=== PATIENT | female | born 1950 | race Caucasian/White ===

== ENCOUNTER 2017-11-07 10:13 | Outpatient (CLI) | payer MEDICARE, OTHER | END 2017-11-07 10:14 | disposition home or self-care (01) | LOC: BICMAMMO 10:13 | PROVIDERS: ATTEND Obstetrics & Gynecology | DX: Z12.31 Encounter for screening mammogram for malignant neoplasm of breast (principal) | CPT/HCPCS: 77063; 77067 ==

== ENCOUNTER 2018-04-08 13:52 | Outpatient (CLI) | payer MEDICARE, OTHER | END 2018-04-08 13:53 | disposition home or self-care (01) | LOC: BICMAMMO 13:52 | PROVIDERS: ATTEND Family Medicine | DX: Z13.820 Encounter for screening for osteoporosis (principal); Z78.0 Asymptomatic menopausal state | CPT/HCPCS: 77080 ==

== ENCOUNTER 2018-08-12 12:11 | Outpatient (CLI) | payer MEDICARE, OTHER ==
--- NOTE | 2018-08-12 14:00 | RAD ---
ABDOMEN TWO VIEWS: TECHNIQUE: Supine and upright views of the abdomen obtained. FINDINGS: On the upright view, there is opacity in the right lung base obscuring the right hemidiaphragm, meghann rning for a right basilar infiltrate, as described on chest film. The bowel gas pattern is unremarka ble. Scattered stool and gas in the colon. No significant small bowel gas. Osseous structures are unremarkable with moderate degenerative change at the left hip and a prosthesis at the right hip. IMPRESSION: 1. Bowel gas pattern unremarkable. 2. Evidence of right basilar infiltrate or atelectasis. POS: [facility]
--- NOTE | 2018-08-12 14:00 | RAD ---
2 VIEW CHEST: Date: 08/12/18 INDICATION: Bronchitis, cough. COMPARISON: 12/17/16. FINDINGS: There is opacity in the right lung base, partially obscuring the hemidiaphragm, better appreciated on the upright view of abdomen. Findings are concerning for right basilar infiltrate. Lungs otherwise appear clear. Heart is upper normal size. Vasculature normal. Osseous structures unre markable. IMPRESSION: Evidence of mild right basilar atelectasis and/or infiltrate. POS: [facility]
== END 2018-08-12 12:12 | disposition home or self-care (01) ==
LOC: SCSRAD 12:11
PROVIDERS: ATTEND Family Medicine
DX: R06.02 Shortness of breath (principal); R10.32 Left lower quadrant pain
CPT/HCPCS: 71046; 74019

== ENCOUNTER 2018-08-14 11:54 | Inpatient (IN) | payer MEDICARE, OTHER ==
[2018-08-14 12:22] LABS: #Lymphocytes 2.5 thou/uL (1.20-3.40); #Monocytes 1.3 thou/uL (0.11-0.59); #Neutrophils 10.3 thou/uL (1.40-6.50); %Basophils 0.3 % (0.0-1.0); %Eosinophils 0.3 % (0.0-10.0); %Lymphocytes 17.7 % (21.0-51.0); %Monocytes 9.3 % (0.0-10.0); %Neutrophils 72.4 % (42.0-75.0); Hemoglobin 14.9 g/dL (12.0-16.0); Mean Corpuscular HGB CONC 33.5 g/dL (32.0-36.0); Mean Corpuscular Hemoglobin 33.3 pg (27.0-31.0); Mean Corpuscular Volume 99.6 fL (78.0-98.0); Platelet Count 295 thou/uL (130-400); RBC Distribution Width 11.9 % (11.5-14.5); Red Blood Cell (RBC) Count 4.46 mill/uL (4.20-5.40); White Blood Cell (WBC) Count 14.2 thou/uL (4.8-10.8)
[2018-08-14 12:32] LABS: INR-International Normal Ratio 1.6; PTT 26.1 SEC (22.9-36.1); Prothrombin Time 18.9 SEC (12.0-14.7)
[2018-08-14 12:38] LABS: Bilirubin Negative (Negative); Blood, Urine Negative (Negative); Clarity CLEAR (Clear); Glucose, Urine (Dipstick) Negative (Negative); Leukocyte Negative (Negative); Nitrite Negative (Negative); Protein, Urine (Dipstick) 30 mg/dL (Neg-Trace); Specific Gravity, Urine 1.025 (1.002-1.036); Urobilinogen 0.2 mg/dL (0.2-1.0)
[2018-08-14 12:41] LABS: Bacteria/HPF None Seen HPF (None Seen); Hyaline Casts/LPF 4-6 HYALINE CAST LPF (0-3 Hyaline); Pathc Cast-AUWi Flag 0.87 (0-2.49); Squamous Epithelial 0-3 HPF (0-3); WBC/HPF 0-3 HPF (0-3)
[2018-08-14 12:44] LABS: ALT (SGPT) 252 U/L (8-55); AST (SGOT) 145 U/L (5-34); Alkaline Phosphatase 112 U/L (40-150); Anion Gap 18 mmol/L (10-20); BUN (Urea Nitrogen) 41 mg/dL (9.8-20.1); Bilirubin, Total 0.5 mg/dL (0.2-1.2); Calc. Creatinine Clearance 0 mL/min (70-130); Calcium 9.2 mg/dL (7.8-10.44); Carbon Dioxide 22 mmol/L (23-31); Chloride 103 mmol/L (98-107); Estimated GFR-MDRD 39; Globulin 2.7 g/dL (2.4-3.5); Glucose 132 mg/dL (80-115); Potassium 4.1 mmol/L (3.5-5.1); Protein, Total 6.7 g/dL (6.0-8.3); Sodium 139 mmol/L (136-145)
--- NOTE | 2018-08-14 13:24 | RAD ---
RADIOGRAPH CHEST 1 VIEW: Date: 08/14/2018 Time: 11:53 a.m. HISTORY: A 67-year-old female with a diagnosis of pneumonia. COMPARISON: 08/12/2018 FINDINGS: Again noted is the cardiomegaly without congestive heart failure. There is a greater degree of incre ased attenuation in the bilateral lower lung zones on the current study, compared to previous, and th ey could represent infiltrates, left greater than right. The upper lobes are clear. No mediastinal widening. No pneumothorax. IMPRESSION: 1. Suspicious for bilateral lower lobe infiltrates, left greater than right. 2. A lateral view would be useful. JN [] POS: [facility]
[2018-08-14] MEDS ORDERED: Diltiazem 125 MG/25 ML ONE (14:07)
[2018-08-14] MEDS ORDERED: Ondansetron PF 4 MG/2 ML Vial ONE (14:23)
[2018-08-14] MEDS ORDERED: Bisacodyl 5 MG TAB PO PRN (15:09)
[2018-08-14] MEDS ORDERED: Loperamide HCl 2 MG CAP PO PRN (15:09)
[2018-08-14] MEDS ORDERED: VANCOMYCIN IVPB PRN ×2 (15:09→16:55)
[2018-08-14] MEDS ORDERED: hydrALAZINE 20 MG/ML VIAL SLOW IVP PRN (15:09)
[2018-08-14] MEDS ORDERED: Cepastat Lozenges 1 LOZ PO PRN (15:09)
[2018-08-14] MEDS ORDERED: Diabetic Tussin 200 MG/10 ML UDCUP PO PRN (15:09)
[2018-08-14] MEDS ORDERED: Bisacodyl 10 MG SUPP PR PRN (15:09)
[2018-08-14] MEDS ORDERED: Artificial Tears 18 DROP/0.9 ML EA EYE PRN (15:09)
[2018-08-14] MEDS ORDERED: Senokot S 8.6-50 MG TAB PO PRN (15:09)
[2018-08-14] MEDS ORDERED: Loratadine 10 MG TAB PO PRN (15:09)
[2018-08-14] MEDS ORDERED: Sodium Chloride 0.65% Nasal 44 ML BOT EA NARE PRN (15:09)
[2018-08-14] MEDS ORDERED: Calcium Carbonate 500 MG ChewTAB PO PRN (15:09)
[2018-08-14] MEDS ORDERED: Eucerin (Mineral Oil/Petrolatum,White) 30 gm Jar TOP PRN (15:09)
[2018-08-14] MEDS ORDERED: Digoxin 0.5 MG/2 ML AMP SLOW IVP SCH (15:15)
--- NOTE | 2018-08-14 16:24 | HP ---
PRIMARY CARE PHYSICIAN: Dr. Ricardo Hannah. REASON FOR ADMISSION: Atrial fibrillation with rapid ventricular response, pneumonia, failure of outpatient therapy. HISTORY OF PRESENT ILLNESS: A 67-year-old female, who has almost 1-week history of increasing cough. The patient reports that all symptoms started 1 week ago with upper respiratory symptoms with runny nose and sore throat. Her symptoms progressed to cough, initially dry and subsequently productive of sputum associated with shortness of breath. She did not have any hemoptysis. She reports that she was exposed with people, who had upper respiratory infection. The patient is up-to-date in her flu and pneumonia vaccination. The patient saw her primary care physician, who prescribed Z-Sean as well as couple of times Rocephin intramuscularly given and also prescribed steroid. The patient reports that she finished her antibiotic therapy, but she was not feeling any better and that is why she made followup appointment with primary care physician. The patient was evaluated by primary care physician and the patient was not improving and that is why she was instructed to go to emergency room for evaluation. The patient was evaluated in the emergency room today and today her blood tests showing leukocytosis with left shift as well as acute kidney injury, lactic acidosis, and abnormal LFT. The patient's chest x-ray showed bilateral lower lobe pneumonia, left greater than right. The patient received vancomycin and levofloxacin in the emergency room. The patient received IV fluid because she was initially hypotensive. She was also started on Cardizem drip. When I saw this patient at that time, the patient was still in atrial fibrillation with RVR. We decided to admit this patient in the hospital for further evaluation and treatment. REVIEW OF SYSTEMS: CONSTITUTIONAL: Negative for weight loss or gain, ability to conduct usual activities. SKIN: Negative for rash, itching. EYES: Negative for double vision, pain. ENT/MOUTH: Negative for nose bleeding, neck stiffness, pain, tenderness. CARDIOVASCULAR: Negative for palpitations, dyspnea on exertion, orthopnea. RESPIRATORY: Negative for shortness of breath, wheezing, cough, hemoptysis, fever or night sweats. GASTROINTESTINAL: Negative for poor appetite, abdominal pain, heartburn, nausea, vomiting, constipation, or diarrhea. GENITOURINARY: Negative for urgency, frequency, dysuria, nocturia. MUSCULOSKELETAL: Negative for pain, swelling. NEUROLOGIC/PSYCHIATRIC: Negative for anxiety, depression. ALLERGY/IMMUNOLOGIC: Negative for skin rash, bleeding tendency. Please see my HPI for pertinent positives and negatives. All other review of systems reviewed and negative except as mentioned in HPI. PAST MEDICAL HISTORY: Paroxysmal atrial fibrillation, chronic anticoagulation with Xarelto, hypertension, and gastroesophageal reflux disease. PAST SURGICAL HISTORY: Right hip replacement, bilateral cataract surgery, bladder surgery x2, hysterectomy. PAST PSYCHIATRIC HISTORY: Reviewed and negative. SOCIAL HISTORY: The patient is , lives at home with her . No history of tobacco, alcohol, or illicit drug abuse. FAMILY HISTORY: No family history of coronary artery disease, stroke, or cancer, but several family members were diagnosed with atrial fibrillation. ALLERGIES: PENICILLIN. CURRENT HOME MEDICATIONS: 1. Estradiol 0.5 mg daily. 2. Valsartan 80 mg daily. 3. Protonix 40 mg daily. 4. Atenolol 12.5 mg twice daily. 5. Xarelto 20 mg daily. 6. Benicar 20 mg p.o. daily. 7. Tessalon 200 mg three times daily. 8. Celecoxib 200 mg twice daily. 9. Prednisone 20 mg p.o. b.i.d. EMERGENCY ROOM COURSE: The patient has received IV fluid 2 L, Levaquin 750 mg, Cardizem 10 mg bolus and 5 mg/hour drip, vancomycin 1 g. PHYSICAL EXAMINATION: VITAL SIGNS: On arrival, blood pressure a 106/81, pulse 155 and irregular, respiratory rate 24, temperature 97.9, and saturation 95% on room air. Weight 77.1 kg. GENERAL: The patient is currently alert and awake. No obvious acute distress. HEENT: Head; normocephalic and atraumatic. Eyes; pupils round and reactive to light. Extraocular muscle intact. ENT, oropharynx within normal limits. Moist mucous membranes. No pharyngeal erythema. No exudate. NECK: Supple. No JVD. No thyromegaly. No carotid bruit. No jugular venous distention. LUNGS: Bibasilar rales noted more on the left side. No accessory muscles of respiration in use. CARDIAC: S1 and S2, irregular. No murmur elicited. No gallop. No rub. ABDOMEN: Soft. Bowel sounds are present. Nontender. Nondistended. No organomegaly. No mass. No suprapubic tenderness. BACK: Unremarkable. No CVA tenderness. EXTREMITIES: Upper extremities, passive movement of all joints are normal. Lower extremities, no edema. Good distal pulsation. SKIN: No skin rash. HEMATOLOGIC: No lymphadenopathy. PSYCHIATRIC: Normal affect. SIGNIFICANT LABORATORY DATA AND IMAGING STUDIES: Chest x-ray showing bilateral pneumonia, left greater than right. CBC; WBC 14.2, hemoglobin 14.9, platelet 295. INR 1.6. Sodium 139, potassium 4.1, chloride 103, carbon dioxide 22, anion gap 18, BUN 41, creatinine 1.35, glucose 132, calcium 9.2. Lactic acid 3.4. LFT; AST 145, ALT 252, alkaline phosphatase 112, albumin 4.0. Troponin less than 0.010. Urinalysis normal. ASSESSMENT AND PLAN: 1. Sepsis with acute organ dysfunction, likely due to underlying pneumonia with failure of outpatient therapy. This patient has lactic acidosis, transaminitis, and acute kidney injury. The patient will be kept on broad-spectrum antibiotic therapy as well as IV fluid. We will follow up on culture result and change antibiotic therapy accordingly. 2. Community-acquired pneumonia, failure of outpatient therapy. This patient has failed outpatient therapy with azithromycin and she was given Rocephin. At this point, we will continue with vancomycin as per pharmacy adjusted dose and Levaquin 500 mg IV daily. I will check respiratory virus pathogen to rule out any viral etiology. We will continue with Mucinex 600 mg twice daily and DuoNeb therapy on p.r.n. basis. 3. Atrial fibrillation with rapid ventricular response. We will continue with Cardizem drip. If blood pressure remains low, then we will continue with digoxin 0.25 mg IV one time dose. We will also continue atenolol 12.5 mg p.o. b.i.d. We will check echocardiography. Cardiology will be consulted and we will continue her chronic anticoagulation with Xarelto. 4. Lactic acidosis, likely due to sepsis. We will repeat lactic acid level tomorrow. 5. Acute kidney injury. The patient will be given IV fluid, likely due to underlying sepsis. We will avoid nephrotoxins agent. 6. Abnormal LFT with transaminitis, likely due to sepsis and relatively low blood pressure. We will continue with IV fluid and will repeat LFT tomorrow. 7. History of hypertension, but currently having relatively low blood pressure and that is why we will hold on ARELIS inhibitor. 8. Deep venous thrombosis prophylaxis. The patient is already on Xarelto therapy. GI prophylaxis, Protonix 40 mg p.o. daily. 9. Gastroesophageal reflux disease. Continue Protonix 40 mg p.o. daily. CODE STATUS: The patient is full code. The patient's is surrogate decision maker. DISPOSITION PLAN: Based on clinical course, we are expecting the patient's stay in hospital more than 2 midnights. Plan of care discussed with the patient and her at bedside in the emergency room. Job ID: [id number]
[2018-08-14] MEDS ORDERED: Digoxin 0.5 MG/2 ML AMP ONE (16:34)
[2018-08-14 17:49] LABS: Lactic Acid 1.9 mmol/L (0.5-2.2)
[2018-08-14 20:22] VITALS: BMI 27.1
[2018-08-14] MEDS: Sodium Chloride 0.9% 1,000 ML IV SCH (21:08)
[2018-08-14] MEDS: Atenolol 25 MG TAB PO SCH (21:12)
[2018-08-14] MEDS: guaiFENesin ER 600 MG TAB PO SCH (21:14)
[2018-08-14] MEDS: Zolpidem Tartrate 5 MG TAB PO PRN (21:14)
[2018-08-14] MEDS: Diltiazem 125 MG in Sodium Chloride 0.9% 100 ML IVPB SCH (22:20)
[2018-08-15 05:28] LABS: #Basophils 0.1 thou/uL (0.0-0.2); #Eosinphils 0.1 thou/uL (0.0-0.7); #Lymphocytes 2.9 thou/uL (1.20-3.40); #Neutrophils 6.3 thou/uL (1.40-6.50); %Basophils 0.6 % (0.0-1.0); %Eosinophils 0.9 % (0.0-10.0); %Lymphocytes 28.2 % (21.0-51.0); %Monocytes 9.4 % (0.0-10.0); %Neutrophils 60.8 % (42.0-75.0); Hemoglobin 13.1 g/dL (12.0-16.0); Mean Corpuscular HGB CONC 33.8 g/dL (32.0-36.0); Mean Platelet Volume 7.9 fL (7.4-10.4); Platelet Count 229 thou/uL (130-400); Red Blood Cell (RBC) Count 3.85 mill/uL (4.20-5.40); White Blood Cell (WBC) Count 10.4 thou/uL (4.8-10.8)
[2018-08-15 05:48] LABS: Lactic Acid 1.2 mmol/L (0.5-2.2)
[2018-08-15 05:52] LABS: ALT (SGPT) 242 U/L (8-55); AST (SGOT) 149 U/L (5-34); Albumin 3.1 g/dL (3.4-4.8); Alkaline Phosphatase 87 U/L (40-150); Anion Gap 10 mmol/L (10-20); BUN (Urea Nitrogen) 26 mg/dL (9.8-20.1); Bilirubin, Total 0.4 mg/dL (0.2-1.2); Calc. Creatinine Clearance 75 mL/min (70-130); Calcium 8.2 mg/dL (7.8-10.44); Carbon Dioxide 26 mmol/L (23-31); Chloride 108 mmol/L (98-107); Estimated GFR-MDRD 63; Globulin 2.3 g/dL (2.4-3.5); Glucose 88 mg/dL (80-115); Protein, Total 5.4 g/dL (6.0-8.3); Sodium 140 mmol/L (136-145)
[2018-08-15] MEDS ORDERED: Rivaroxaban 10 MG TAB PO SCH ×2 (06:00→21:00)
[2018-08-15] MEDS: Sodium Chloride 0.9% 1,000 ML IV SCH (08:18)
[2018-08-15] MEDS: Estradiol 1 MG TAB PO SCH (08:21)
[2018-08-15] MEDS: Atenolol 25 MG TAB PO SCH ×2 (08:21→21:31)
[2018-08-15] MEDS: guaiFENesin ER 600 MG TAB PO SCH ×2 (08:22→21:32)
--- NOTE | 2018-08-15 11:02 | PDOC.PN ---
- Subjective Encounter Start Date: 08/15/18 Encounter Start Time: 08:00 -: old records requested/rev Patient seen and examined. No new complaints. No overnight events she has cough, no fever, no chest pain - Objective Resuscitation Status - Order Detail: 08/14/18 14:14 Resuscitation Status Routine Resuscitation Status: FULL: Full Resuscitation MAR Reviewed: Yes Vital Signs & Weight: Vital Signs (12 hours) Temp Pulse Resp BP Pulse Ox 08/15/18 08:21 102 H 08/15/18 07:15 98.1 F 102 H 18 142/66 H 93 L 08/15/18 03:43 97.9 F 87 20 131/77 Weight Weight 173 lb 3.2 oz I&O: 08/14/18 08/15/18 08/16/18 06:59 06:59 06:59 Intake Total 1286 Output Total 850 Balance 436 Result Diagrams: 08/15/18 04:42 08/15/18 04:42 EKG Reviewed by me: Yes (afib) Phys Exam - Physical Examination Constitutional: NAD HEENT: PERRLA, moist MMs, sclera anicteric Neck: no JVD, supple Respiratory: no wheezing, no rhonchi basal rales more on left Cardiovascular: no significant murmur, irregular Gastrointestinal: soft, non-tender, no distention, positive bowel sounds Musculoskeletal: no edema, pulses present Neurological: non-focal, normal sensation, moves all 4 limbs Lymphatic: no nodes Psychiatric: normal affect, A&O x 3 Skin: no rash, normal turgor Dx/Plan (1) Acute kidney failure Status: Resolved (2) Atrial fibrillation with RVR Code(s): I48.91 - UNSPECIFIED ATRIAL FIBRILLATION Status: Acute (3) Community acquired bacterial pneumonia Code(s): J15.9 - UNSPECIFIED BACTERIAL PNEUMONIA Status: Acute (4) Lactic acidosis Code(s): E87.2 - ACIDOSIS Status: Resolved (5) Sepsis with acute organ dysfunction Code(s): A41.9 - SEPSIS, UNSPECIFIED ORGANISM; R65.20 - SEVERE SEPSIS WITHOUT SEPTIC SHOCK Status: Acute (6) Transaminitis Code(s): R74.0 - NONSPEC ELEV OF LEVELS OF TRANSAMNS & LACTIC ACID DEHYDRGNSE Status: Acute (7) Chronic anticoagulation Code(s): Z79.01 - DETENTION (CURRENT) USE OF ANTICOAGULANTS Status: Chronic (8) GERD (gastroesophageal reflux disease) Code(s): K21.9 - GASTRO-ESOPHAGEAL REFLUX DISEASE WITHOUT ESOPHAGITIS Status: Chronic (9) Hypertension Code(s): I10 - ESSENTIAL (PRIMARY) HYPERTENSION Status: Chronic - Plan cont current plan of care, continue antibiotics * continue vancomycin and levaquin * DC IVF * continue cardizem drip, rate controlled * home medication reconciled * cardiology to see her today * echo pending * follow culture * medication reviewed as below * symptomatic treatment. Review of Systems - Review of Systems Constitutional: negative: fever, chills, sweats, weakness, malaise, other ENT: negative: Ear Pain, Ear Discharge, Nose Pain, Nose Discharge, Nose Congestion, Mouth Pain, Mouth Swelling, Throat Pain, Throat Swelling, Other Respiratory: Cough. negative: Dry, Shortness of Breath, Hemoptysis, SOB with Excertion, Pleuritic Pain, Sputum, Wheezing Cardiovascular: negative: chest pain, palpitations, orthopnea, paroxysmal nocturnal dyspnea, edema, light headedness, other Gastrointestinal: negative: Nausea, Vomiting, Abdominal Pain, Diarrhea, Constipation, Melena, Hematochezia, Other Genitourinary: negative: Dysuria, Frequency, Incontinence, Hematuria, Retention , Other Musculoskeletal: negative: Neck Pain, Shoulder Pain, Arm Pain, Back Pain, Hand Pain, Leg Pain, Foot Pain, Other Skin: negative: Rash, Lesions, Jose, Bruising, Other - Medications/Allergies Allergies/Adverse Reactions: Allergies Allergy/AdvReac Type Severity Reaction Status Date / Time Penicillins Allergy Verified 12/17/16 14:44 Medications: Current Medications Acetaminophen (Tylenol) 650 mg PO Q4H PRN PRN Reason: Headache/Fever/Mild Pain (1-3) Hydrocodone Bitart/Acetaminophen ([place] 5/325) 1 tab PO Q4H PRN PRN Reason: Moderate Pain (4-6) Albuterol/Ipratropium (Duoneb) 3 ml NEB [id number] PRN PRN Reason: SOB &/or Wheezing Artificial Tears (Tears Naturale) 2 drop EA EYE PRN PRN PRN Reason: Dry Eyes Atenolol (Tenormin) 12.5 mg PO BID [facility] Last Admin: 08/15/18 08:21 Dose: 12.5 mg Bisacodyl (Dulcolax) 10 mg PO DAILYPRN PRN PRN Reason: Constipation Bisacodyl (Dulcolax) 10 mg [place] DAILYPRN PRN PRN Reason: Constipation Calcium Carbonate (Tums) 1,000 mg PO Q4H PRN PRN Reason: Heartburn or Indigestion Estradiol (Estrace) 0.5 mg PO DAILY [facility] Last Admin: 08/15/18 08:21 Dose: 0.5 mg Guaifenesin (Robitussin Sf) 200 mg PO Q4H PRN PRN Reason: Cough Guaifenesin (Mucinex) 600 mg PO Q12HR [facility] Last Admin: 08/15/18 08:22 Dose: 600 mg Hydralazine HCl (Apresoline) 10 mg SLOW IVP Q4H PRN PRN Reason: SBP > 180 and HR < 70 Levofloxacin 500 mg/ Device 100 mls @ 100 mls/hr IVPB 1400 [facility] Diltiazem HCl 125 mg/ Sodium (Chloride) 125 mls @ 5 mls/hr IVPB INF [facility]; Protocol Last Admin: 08/14/18 22:20 Dose: 125 mls Sodium Chloride (Normal Saline 0.9%) 1,000 mls @ 75 mls/hr IV .[id number] [facility] Last Admin: 08/15/18 08:18 Dose: Not Given Vancomycin HCl 1.5 gm/ Sodium (Chloride) 300 mls @ 200 mls/hr IVPB 1200 [facility] Loperamide HCl (Imodium) 2 mg PO PRN PRN PRN Reason: Diarrhea/Loose Stools Loratadine (Claritin) 10 mg PO DAILYPRN PRN PRN Reason: Sinus Symptoms Mineral Oil/White Petrolatum (Eucerin Cream) 0 gm TOP BIDPRN PRN PRN Reason: Dry Skin Miscellaneous Medication (Pharmacy To Dose) 1 each IVPB DAILYPRN PRN PRN Reason: LABS Pantoprazole Sodium (Protonix) 40 mg PO DAILY [facility] Last Admin: 08/15/18 08:22 Dose: 40 mg Rivaroxaban (Xarelto) 20 [facility] Senna/Docusate Sodium (Senokot S) 2 tab PO BID PRN PRN Reason: Constipation Sodium Chloride ([place] 0.65%) 0 ml EA NARE QIDPRN PRN PRN Reason: Nasal Congestion Sodium Chloride (Flush - Normal Saline) 10 ml IVF Q12HR [facility] Last Admin: 08/15/18 08:22 Dose: 10 ml Sodium Chloride (Flush - Normal Saline) 10 ml IVF PRN PRN PRN Reason: Saline Flush Throat Lozenges (Cepastat Lozenges) 1 maribeth PO Q2H PRN PRN Reason: Sore Throat Zolpidem Tartrate (Ambien) 5 mg PO HSPRN PRN PRN Reason: Insomnia Last Admin: 08/14/18 21:14 Dose: 5 mg
[2018-08-15 11:14] LABS: Hemoglobin 13.3 g/dL (12.0-16.0); Platelet Count 226 thou/uL (130-400)
[2018-08-15] MEDS: Vancomycin HCl 1.5 GM in Sodium Chloride 0.9% 250 ML 300 ML IVPB SCH (11:45)
[2018-08-15] MEDS: Rivaroxaban 10 MG TAB PO SCH (16:52)
[2018-08-15] MEDS: Zolpidem Tartrate 5 MG TAB PO PRN (21:32)
[2018-08-15] MEDS: Diltiazem 125 MG in Sodium Chloride 0.9% 100 ML IVPB SCH (22:14)
[2018-08-16 05:39] LABS: #Basophils 0.1 thou/uL (0.0-0.2); #Eosinphils 0.1 thou/uL (0.0-0.7); #Lymphocytes 1.8 thou/uL (1.20-3.40); #Monocytes 1.2 thou/uL (0.11-0.59); #Neutrophils 7.7 thou/uL (1.40-6.50); %Basophils 0.5 % (0.0-1.0); %Eosinophils 0.7 % (0.0-10.0); %Lymphocytes 16.8 % (21.0-51.0); %Monocytes 11.2 % (0.0-10.0); %Neutrophils 70.9 % (42.0-75.0); Hemoglobin 13.2 g/dL (12.0-16.0); Mean Corpuscular HGB CONC 34.7 g/dL (32.0-36.0); Mean Corpuscular Hemoglobin 34.6 pg (27.0-31.0); Mean Corpuscular Volume 99.5 fL (78.0-98.0); Mean Platelet Volume 7.8 fL (7.4-10.4); Platelet Count 226 thou/uL (130-400); Red Blood Cell (RBC) Count 3.81 mill/uL (4.20-5.40); White Blood Cell (WBC) Count 10.9 thou/uL (4.8-10.8)
[2018-08-16 06:06] LABS: ALT (SGPT) 210 U/L (8-55); AST (SGOT) 91 U/L (5-34); Albumin 3.1 g/dL (3.4-4.8); Alkaline Phosphatase 85 U/L (40-150); Anion Gap 13 mmol/L (10-20); BUN (Urea Nitrogen) 17 mg/dL (9.8-20.1); Bilirubin, Total 0.6 mg/dL (0.2-1.2); Calc. Creatinine Clearance 78 mL/min (70-130); Calcium 8.5 mg/dL (7.8-10.44); Carbon Dioxide 23 mmol/L (23-31); Chloride 105 mmol/L (98-107); Estimated GFR-MDRD 66; Globulin 2.3 g/dL (2.4-3.5); Glucose 108 mg/dL (80-115); Potassium 4.1 mmol/L (3.5-5.1); Protein, Total 5.4 g/dL (6.0-8.3); Sodium 137 mmol/L (136-145)
[2018-08-16] MEDS: Atenolol 25 MG TAB PO SCH ×2 (09:11→21:36)
[2018-08-16] MEDS: guaiFENesin ER 600 MG TAB PO SCH ×2 (09:11→21:37)
[2018-08-16] MEDS: Estradiol 1 MG TAB PO SCH (09:11)
[2018-08-16] MEDS ORDERED: Digoxin 0.5 MG/2 ML AMP SLOW IVP SCH ×2 (09:15→14:00)
--- NOTE | 2018-08-16 09:50 | PDOC.PN ---
- Subjective Encounter Start Date: 08/16/18 Encounter Start Time: 07:50 Patient seen and examined. No new complaints. No overnight events pt has less cough, no chest pain, no fever, overall she feels better - Objective Resuscitation Status - Order Detail: 08/14/18 14:14 Resuscitation Status Routine Resuscitation Status: FULL: Full Resuscitation MAR Reviewed: Yes Vital Signs & Weight: Vital Signs (12 hours) Temp Pulse Resp BP BP Pulse Ox 08/16/18 09:44 135 H 08/16/18 09:11 135 H 08/16/18 09:05 98.2 F 135 H 16 124/84 95 08/16/18 05:34 94 L 08/16/18 03:17 98.3 F 120 H 16 122/64 92 L Weight Weight 172 lb 8 oz I&O: 08/15/18 08/16/18 08/17/18 06:59 06:59 06:59 Intake Total 1286 2000 Output Total 850 2500 Balance 436 -499 Result Diagrams: 08/16/18 04:57 08/16/18 04:57 Radiology Reviewed by me: Yes (echo showed EF 20-25%) EKG Reviewed by me: Yes (afib) Phys Exam - Physical Examination Constitutional: NAD HEENT: PERRLA, moist MMs, sclera anicteric Neck: no JVD, supple Respiratory: no wheezing, no rhonchi basal rales Cardiovascular: irregular SM+ at apex Gastrointestinal: soft, non-tender, no distention, positive bowel sounds Musculoskeletal: no edema, pulses present Neurological: non-focal, normal sensation, moves all 4 limbs Lymphatic: no nodes Psychiatric: normal affect, A&O x 3 Skin: no rash, normal turgor Dx/Plan (1) Acute systolic heart failure, ACC/AHA stage C Code(s): I50.21 - ACUTE SYSTOLIC (CONGESTIVE) HEART FAILURE Status: Acute (2) Severe mitral regurgitation Code(s): I34.0 - NONRHEUMATIC MITRAL (VALVE) INSUFFICIENCY Status: Acute (3) Acute kidney failure Status: Resolved (4) Atrial fibrillation with RVR Code(s): I48.91 - UNSPECIFIED ATRIAL FIBRILLATION Status: Acute (5) Community acquired bacterial pneumonia Code(s): J15.9 - UNSPECIFIED BACTERIAL PNEUMONIA Status: Acute (6) Lactic acidosis Code(s): E87.2 - ACIDOSIS Status: Resolved (7) Sepsis with acute organ dysfunction Code(s): A41.9 - SEPSIS, UNSPECIFIED ORGANISM; R65.20 - SEVERE SEPSIS WITHOUT SEPTIC SHOCK Status: Acute (8) Transaminitis Code(s): R74.0 - NONSPEC ELEV OF LEVELS OF TRANSAMNS & LACTIC ACID DEHYDRGNSE Status: Acute (9) Chronic anticoagulation Code(s): Z79.01 - BRAND MARKETING SPECIALIST (CURRENT) USE OF ANTICOAGULANTS Status: Chronic (10) GERD (gastroesophageal reflux disease) Code(s): K21.9 - GASTRO-ESOPHAGEAL REFLUX DISEASE WITHOUT ESOPHAGITIS Status: Chronic (11) Hypertension Code(s): I10 - ESSENTIAL (PRIMARY) HYPERTENSION Status: Chronic - Plan cont current plan of care, continue antibiotics * continue levaquin and vancomycin for pneumonia * continue cardizem drip for rate control, digoxin added * cardiology following * she may need ischemic work up for low EF, may need life vest before discharge * medication reviewed as below * symptomatic treatment. Review of Systems - Review of Systems ENT: negative: Ear Pain, Ear Discharge, Nose Pain, Nose Discharge, Nose Congestion, Mouth Pain, Mouth Swelling, Throat Pain, Throat Swelling, Other Respiratory: negative: Cough, Dry, Shortness of Breath, Hemoptysis, SOB with Excertion, Pleuritic Pain, Sputum, Wheezing Cardiovascular: negative: chest pain, palpitations, orthopnea, paroxysmal nocturnal dyspnea, edema, light headedness, other Gastrointestinal: negative: Nausea, Vomiting, Abdominal Pain, Diarrhea, Constipation, Melena, Hematochezia, Other Genitourinary: negative: Dysuria, Frequency, Incontinence, Hematuria, Retention , Other Musculoskeletal: negative: Neck Pain, Shoulder Pain, Arm Pain, Back Pain, Hand Pain, Leg Pain, Foot Pain, Other Skin: negative: Rash, Lesions, Jose, Bruising, Other - Medications/Allergies Allergies/Adverse Reactions: Allergies Allergy/AdvReac Type Severity Reaction Status Date / Time Penicillins Allergy Verified 12/17/16 14:44 Medications: Current Medications Acetaminophen (Tylenol) 650 mg PO Q4H PRN PRN Reason: Headache/Fever/Mild Pain (1-3) Hydrocodone Bitart/Acetaminophen ([place] 5/325) 1 tab PO Q4H PRN PRN Reason: Moderate Pain (4-6) Albuterol/Ipratropium (Duoneb) 3 ml NEB [id number] PRN PRN Reason: SOB &/or Wheezing Artificial Tears (Tears Naturale) 2 drop EA EYE PRN PRN PRN Reason: Dry Eyes Atenolol (Tenormin) 12.5 mg PO BID [facility] Last Admin: 08/16/18 09:11 Dose: 12.5 mg Bisacodyl (Dulcolax) 10 mg PO DAILYPRN PRN PRN Reason: Constipation Bisacodyl (Dulcolax) 10 mg [place] DAILYPRN PRN PRN Reason: Constipation Calcium Carbonate (Tums) 1,000 mg PO Q4H PRN PRN Reason: Heartburn or Indigestion Digoxin (Lanoxin) 0.25 mg SLOW IVP NOW [facility] Stop: 08/16/18 10:00 Last Admin: 08/16/18 09:44 Dose: 0.25 mg Digoxin (Lanoxin) 0.25 mg SLOW IVP 1400 [facility] Stop: 08/16/18 15:00 Digoxin (Lanoxin) 0.25 mg SLOW IVP 2000 [facility] Digoxin (Lanoxin) 0.25 mg PO DAILY [facility] Estradiol (Estrace) 0.5 mg PO DAILY [facility] Last Admin: 08/16/18 09:11 Dose: 0.5 mg Guaifenesin (Robitussin Sf) 200 mg PO Q4H PRN PRN Reason: Cough Guaifenesin (Mucinex) 600 mg PO Q12HR [facility] Last Admin: 08/16/18 09:11 Dose: 600 mg Hydralazine HCl (Apresoline) 10 mg SLOW IVP Q4H PRN PRN Reason: SBP > 180 and HR < 70 Levofloxacin 500 mg/ Device 100 mls @ 100 mls/hr IVPB 1400 [facility] Last Admin: 08/15/18 14:08 Dose: 100 mls Diltiazem HCl 125 mg/ Sodium (Chloride) 125 mls @ 5 mls/hr IVPB INF [facility]; Protocol Last Admin: 08/15/18 22:14 Dose: 125 mls Vancomycin HCl 1.5 gm/ Sodium (Chloride) 300 mls @ 200 mls/hr IVPB 1200 [facility] Last Admin: 08/15/18 11:45 Dose: 300 mls Loperamide HCl (Imodium) 2 mg PO PRN PRN PRN Reason: Diarrhea/Loose Stools Loratadine (Claritin) 10 mg PO DAILYPRN PRN PRN Reason: Sinus Symptoms Mineral Oil/White Petrolatum (Eucerin Cream) 0 gm TOP BIDPRN PRN PRN Reason: Dry Skin Miscellaneous Medication (Pharmacy To Dose) 1 each IVPB DAILYPRN PRN PRN Reason: LABS Pantoprazole Sodium (Protonix) 40 mg PO DAILY [facility] Last Admin: 08/16/18 09:10 Dose: 40 mg Rivaroxaban (Xarelto) 20 mg PO QPM[facility] Last Admin: 08/15/18 16:52 Dose: 20 mg Senna/Docusate Sodium (Senokot S) 2 tab PO BID PRN PRN Reason: Constipation Sodium Chloride ([place] 0.65%) 0 ml EA NARE QIDPRN PRN PRN Reason: Nasal Congestion Sodium Chloride (Flush - Normal Saline) 10 ml IVF Q12HR [facility] Last Admin: 08/16/18 09:11 Dose: 10 ml Sodium Chloride (Flush - Normal Saline) 10 ml IVF PRN PRN PRN Reason: Saline Flush Throat Lozenges (Cepastat Lozenges) 1 maribeth PO Q2H PRN PRN Reason: Sore Throat Zolpidem Tartrate (Ambien) 5 mg PO HSPRN PRN PRN Reason: Insomnia Last Admin: 08/15/18 21:32 Dose: 5 mg
--- NOTE | 2018-08-16 11:17 | CON ---
DATE OF CONSULTATION: HISTORY OF PRESENT ILLNESS: Miley Almanza is a 67-year-old white female followed by Dr. Sherman. She has paroxysmal atrial fibrillation. She has had negative Cardiolite scans - October 2015 in the office and December 2016 at [place]. She was last seen in June 2018 and occasionally have palpitations that would last approximately 30 seconds and then resolved. She has been maintained on atenolol and Xarelto. She now is admitted after a 1-week history of increased cough. She was placed on a Z-Sean as well as Rocephin intramuscularly and continued to have cough and shortness of breath. She was also found to be in atrial fibrillation in the emergency room with fast ventricular response, although she is not necessarily aware of that. She was admitted for treatment of pneumonia and control of her atrial fibrillation. PAST MEDICAL HISTORY: Paroxysmal atrial fibrillation with chronic anticoagulation with Xarelto, hypertension, and GERD. PAST SURGICAL HISTORY: Right total hip replacement, bilateral cataract surgery, bladder surgery, and hysterectomy. MEDICATIONS: 1. Atenolol 12.5 mg b.i.d. 2. Celebrex 200 mg b.i.d. 3. Estradiol 0.5 mg q.a.m. 4. Benicar 20 mg daily. 5. Protonix 40 mg q.a.m. 6. Xarelto 20 mg daily. ALLERGIES: PENICILLIN, PLAQUENIL. SOCIAL HISTORY: She does not smoke. She occasionally has alcohol. FAMILY HISTORY: Negative for coronary artery disease. REVIEW OF SYSTEMS: Twelve-point review of systems is otherwise unremarkable. Specifically, she has not had any fever at home. PHYSICAL EXAMINATION: VITAL SIGNS: Blood pressure 124/84, pulse of 135 and irregularly irregular. HEENT: PERRL. NECK: Supple. CHEST: Clear today. CARDIOVASCULAR: S1 and S2 normal without any S3, S4, or murmurs. Her rhythm is irregularly irregular. ABDOMEN: Normal bowel sounds without tenderness. EXTREMITIES: Revealed no clubbing, cyanosis, or edema. NEUROLOGICAL: Grossly intact. SKIN: Warm and dry. DIAGNOSTIC DATA: EKG revealed atrial fibrillation with rate of 146 per minute, nonspecific ST and T-wave changes. Echocardiogram revealed severe left ventricular dysfunction with ejection fraction of 20% to 25%, severe mitral regurgitation, aortic valvular sclerosis, mild tricuspid regurgitation. Chest x-ray revealed bilateral lower lobe pneumonia, left greater than right. White count on admission was 14.2. H and H are normal. Sodium 137, potassium 4.1, chloride 105, carbon dioxide 26, BUN 17, and creatinine 0.86. AST 149, down to 91; ALT 242, down to 210. BNP 426.3. IMPRESSION: 1. Bilateral lower lobe pneumonia. She has significant amount of green sputum yesterday, but states that today this has decreased. 2. Paroxysmal atrial fibrillation, currently back in atrial fibrillation with vxtwdqcew-pr-ahlyqcy rate on intravenous Cardizem 5 mg/hour. 3. Severe left ventricular dysfunction, which is a new finding. Ejection fraction was 55% to 60% in December 2017. 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 4. Hypertension. 5. Lactic acidosis and sepsis. 6. Elevated liver function tests, which have improved. PLAN: At the present time, we will give additional digoxin. She received 0.25 IV in the emergency room and a loading dose will be completed. Consideration may also need to be given to amiodarone and possible cardioversion prior to discharge. She has severe left ventricular dysfunction, which is a new finding. This may be related to possible viral cardiomyopathy or due to the atrial fibrillation with fast ventricular response. We will continue to follow the patient. Job ID: [id number] [employer]
[2018-08-16 11:29] LABS: Vancomycin, Trough 5.3 ug/mL
[2018-08-16] MEDS: Vancomycin HCl 1.5 GM in Sodium Chloride 0.9% 250 ML 300 ML IVPB SCH (12:16)
[2018-08-16] MEDS: Rivaroxaban 10 MG TAB PO SCH (16:01)
[2018-08-16] MEDS: HYDROcodone/Acetaminophen 5/325 mg Tablet PO PRN ×2 (16:37→21:37)
[2018-08-16] MEDS: Digoxin 0.5 MG/2 ML AMP SLOW IVP SCH (21:35)
[2018-08-16] MEDS: Zolpidem Tartrate 5 MG TAB PO PRN (21:37)
[2018-08-16] MEDS: Diltiazem 125 MG in Sodium Chloride 0.9% 100 ML IVPB SCH (23:35)
--- NOTE | 2018-08-17 07:46 | PDOC.CTH ---
Cardiology Progress Note - Subjective Doing well. Feels better. On IV CCB. - Objective Vital Signs Temp Pulse Resp BP Pulse Ox 08/17/18 07:30 98.3 F 118 H 16 129/73 95 08/17/18 05:41 95 08/17/18 04:15 97.7 F 93 18 144/79 H 95 08/16/18 21:36 100 08/16/18 21:35 100 08/16/18 20:00 98.6 F 103 H 20 118/95 H 95 Weight 172 lb 11.2 oz 08/16/18 08/17/18 08/18/18 06:59 06:59 06:59 Intake Total 2000 1968 Output Total 2500 2875 Balance -499 -906 - Physical Examination General/Neuro: alert & oriented x3, NAD Neck: carotid US brisk, no JVD present Lungs: CTA, unlabored respirations Abdomen: no HSM, NT/ND, soft Extremities: + femoral B - Labs Result Diagrams: 08/17/18 10:39 08/17/18 10:39 Troponin/CKMB Troponin I Less than 0.010 ng/mL (< 0.028) 08/14/18 12:08 - Assessment/Plan PAF pneumonia HTN MR On xarelto rate control for now Add po CCB and titrate down IV CCB Abx
[2018-08-17] MEDS ORDERED: Digoxin 0.25 MG TAB PO SCH (09:00)
[2018-08-17] MEDS: Estradiol 1 MG TAB PO SCH (09:27)
[2018-08-17] MEDS: guaiFENesin ER 600 MG TAB PO SCH ×2 (09:29→20:21)
[2018-08-17] MEDS: Lisinopril 2.5 MG TAB PO SCH (09:29)
--- NOTE | 2018-08-17 09:38 | PDOC.PN ---
- Subjective Encounter Start Date: 08/17/18 Encounter Start Time: 07:20 Patient seen and examined. No new complaints. No overnight events - Objective Resuscitation Status - Order Detail: 08/14/18 14:14 Resuscitation Status Routine Resuscitation Status: FULL: Full Resuscitation MAR Reviewed: Yes Vital Signs & Weight: Vital Signs (12 hours) Temp Pulse Resp BP Pulse Ox 08/17/18 09:26 122 H 08/17/18 07:30 98.3 F 118 H 16 129/73 95 08/17/18 05:41 95 08/17/18 04:15 97.7 F 93 18 144/79 H 95 Weight Weight 172 lb 11.2 oz I&O: 08/16/18 08/17/18 08/18/18 06:59 06:59 06:59 Intake Total 2000 1968 Output Total 2499 2875 Balance -499 -336 Result Diagrams: 08/16/18 04:57 08/16/18 04:57 EKG Reviewed by me: Yes (afib) Phys Exam - Physical Examination Constitutional: NAD HEENT: PERRLA, moist MMs, sclera anicteric Neck: no JVD, supple Respiratory: no wheezing, no rales, no rhonchi Cardiovascular: irregular SM+ at apex Gastrointestinal: soft, non-tender, no distention, positive bowel sounds Musculoskeletal: no edema, pulses present Neurological: non-focal, normal sensation, moves all 4 limbs Lymphatic: no nodes Psychiatric: normal affect, A&O x 3 Skin: no rash, normal turgor Dx/Plan (1) Acute systolic heart failure, ACC/AHA stage C Code(s): I50.21 - ACUTE SYSTOLIC (CONGESTIVE) HEART FAILURE Status: Acute (2) Severe mitral regurgitation Code(s): I34.0 - NONRHEUMATIC MITRAL (VALVE) INSUFFICIENCY Status: Acute (3) Acute kidney failure Status: Resolved (4) Atrial fibrillation with RVR Code(s): I48.91 - UNSPECIFIED ATRIAL FIBRILLATION Status: Acute (5) Community acquired bacterial pneumonia Code(s): J15.9 - UNSPECIFIED BACTERIAL PNEUMONIA Status: Acute (6) Lactic acidosis Code(s): E87.2 - ACIDOSIS Status: Resolved (7) Sepsis with acute organ dysfunction Code(s): A41.9 - SEPSIS, UNSPECIFIED ORGANISM; R65.20 - SEVERE SEPSIS WITHOUT SEPTIC SHOCK Status: Acute (8) Transaminitis Code(s): R74.0 - NONSPEC ELEV OF LEVELS OF TRANSAMNS & LACTIC ACID DEHYDRGNSE Status: Acute (9) Chronic anticoagulation Code(s): Z79.01 - HALF-WAY (CURRENT) USE OF ANTICOAGULANTS Status: Chronic (10) GERD (gastroesophageal reflux disease) Code(s): K21.9 - GASTRO-ESOPHAGEAL REFLUX DISEASE WITHOUT ESOPHAGITIS Status: Chronic (11) Hypertension Code(s): I10 - ESSENTIAL (PRIMARY) HYPERTENSION Status: Chronic - Plan cont current plan of care * medication reviewed as below * symptomatic treatment * cardiology to decide further plan * add coreg and lisinopril * dc atenolol. * continue cardizem, digoxin Review of Systems - Review of Systems ENT: negative: Ear Pain, Ear Discharge, Nose Pain, Nose Discharge, Nose Congestion, Mouth Pain, Mouth Swelling, Throat Pain, Throat Swelling, Other Respiratory: negative: Cough, Dry, Shortness of Breath, Hemoptysis, SOB with Excertion, Pleuritic Pain, Sputum, Wheezing Cardiovascular: negative: chest pain, palpitations, orthopnea, paroxysmal nocturnal dyspnea, edema, light headedness, other Gastrointestinal: negative: Nausea, Vomiting, Abdominal Pain, Diarrhea, Constipation, Melena, Hematochezia, Other Genitourinary: negative: Dysuria, Frequency, Incontinence, Hematuria, Retention , Other Musculoskeletal: negative: Neck Pain, Shoulder Pain, Arm Pain, Back Pain, Hand Pain, Leg Pain, Foot Pain, Other - Medications/Allergies Allergies/Adverse Reactions: Allergies Allergy/AdvReac Type Severity Reaction Status Date / Time Penicillins Allergy Verified 12/17/16 14:44 Medications: Current Medications Acetaminophen (Tylenol) 650 mg PO Q4H PRN PRN Reason: Headache/Fever/Mild Pain (1-3) Hydrocodone Bitart/Acetaminophen ([place] 5/325) 1 tab PO Q4H PRN PRN Reason: Moderate Pain (4-6) Last Admin: 08/16/18 21:37 Dose: 1 tab Albuterol/Ipratropium (Duoneb) 3 ml NEB [id number] PRN PRN Reason: SOB &/or Wheezing Artificial Tears (Tears Naturale) 2 drop EA EYE PRN PRN PRN Reason: Dry Eyes Bisacodyl (Dulcolax) 10 mg PO DAILYPRN PRN PRN Reason: Constipation Bisacodyl (Dulcolax) 10 mg [place] DAILYPRN PRN PRN Reason: Constipation Calcium Carbonate (Tums) 1,000 mg PO Q4H PRN PRN Reason: Heartburn or Indigestion Carvedilol (Coreg) 3.125 mg PO BID-[facility] Digoxin (Lanoxin) 0.25 mg SLOW IVP 2000 [facility] Last Admin: 08/16/18 21:35 Dose: 0.25 mg Digoxin (Lanoxin) 0.25 mg PO DAILY [facility] Last Admin: 08/17/18 09:26 Dose: 0.25 mg Estradiol (Estrace) 0.5 mg PO DAILY [facility] Last Admin: 08/17/18 09:27 Dose: 0.5 mg Guaifenesin (Robitussin Sf) 200 mg PO Q4H PRN PRN Reason: Cough Guaifenesin (Mucinex) 600 mg PO Q12HR [facility] Last Admin: 08/17/18 09:29 Dose: 600 mg Hydralazine HCl (Apresoline) 10 mg SLOW IVP Q4H PRN PRN Reason: SBP > 180 and HR < 70 Levofloxacin 500 mg/ Device 100 mls @ 100 mls/hr IVPB 1400 [facility] Last Admin: 08/16/18 14:11 Dose: 100 mls Diltiazem HCl 125 mg/ Sodium (Chloride) 125 mls @ 5 mls/hr IVPB INF [facility]; Protocol Last Admin: 08/16/18 23:35 Dose: 125 mls Vancomycin HCl 1.5 gm/ Sodium (Chloride) 300 mls @ 200 mls/hr IVPB 1200 [facility] Last Admin: 08/16/18 12:16 Dose: 300 mls Lisinopril (Zestril) 2.5 mg PO DAILY [facility] Last Admin: 08/17/18 09:29 Dose: 2.5 mg Loperamide HCl (Imodium) 2 mg PO PRN PRN PRN Reason: Diarrhea/Loose Stools Loratadine (Claritin) 10 mg PO DAILYPRN PRN PRN Reason: Sinus Symptoms Mineral Oil/White Petrolatum (Eucerin Cream) 0 gm TOP BIDPRN PRN PRN Reason: Dry Skin Miscellaneous Medication (Pharmacy To Dose) 1 each IVPB DAILYPRN PRN PRN Reason: LABS Pantoprazole Sodium (Protonix) 40 mg PO DAILY [facility] Last Admin: 08/17/18 09:29 Dose: 40 mg Rivaroxaban (Xarelto) 20 mg PO QPM-WM [facility] Last Admin: 08/16/18 16:01 Dose: 20 mg Senna/Docusate Sodium (Senokot S) 2 tab PO BID PRN PRN Reason: Constipation Sodium Chloride ([place] Nas[place] 0.65%) 0 ml EA NARE QIDPRN PRN PRN Reason: Nasal Congestion Sodium Chloride (Flush - Normal Saline) 10 ml IVF Q12HR [facility] Last Admin: 08/17/18 09:30 Dose: Not Given Sodium Chloride (Flush - Normal Saline) 10 ml IVF PRN PRN PRN Reason: Saline Flush Throat Lozenges (Cepastat Lozenges) 1 maribeth PO Q2H PRN PRN Reason: Sore Throat Zolpidem Tartrate (Ambien) 5 mg PO HSPRN PRN PRN Reason: Insomnia Last Admin: 08/16/18 21:37 Dose: 5 mg
[2018-08-17 10:47] LABS: Hemoglobin 13.5 g/dL (12.0-16.0); Platelet Count 252 thou/uL (130-400)
[2018-08-17 11:49] LABS: Vancomycin, Trough 6.2 ug/mL
[2018-08-17] MEDS: Vancomycin HCl 1.5 GM in Sodium Chloride 0.9% 250 ML 300 ML IVPB SCH (12:15)
[2018-08-17] MEDS ORDERED: Diltiazem HCl SR 60 mg Capsule PO SCH ×2 (15:45→23:59)
[2018-08-17] MEDS ORDERED: Carvedilol 3.125 MG TAB PO SCH (17:00)
[2018-08-17] MEDS: Rivaroxaban 10 MG TAB PO SCH (17:02)
[2018-08-17] MEDS: Metoclopramide HCl 10 MG/2 ML VIAL IVP PRN (18:13)
[2018-08-17] MEDS: Zolpidem Tartrate 5 MG TAB PO PRN (20:21)
[2018-08-17] MEDS: Digoxin 0.5 MG/2 ML AMP SLOW IVP SCH (20:22)
[2018-08-18] MEDS ORDERED: Vancomycin HCl 1.25 GM in Sodium Chloride 0.9% 250 ML 250 ML IVPB SCH
[2018-08-18 05:17] LABS: #Eosinphils 0.2 thou/uL (0.0-0.7); #Lymphocytes 1.6 thou/uL (1.20-3.40); #Monocytes 1.2 thou/uL (0.11-0.59); #Neutrophils 5.4 thou/uL (1.40-6.50); %Basophils 0.3 % (0.0-1.0); %Lymphocytes 18.6 % (21.0-51.0); %Monocytes 14.1 % (0.0-10.0); Hemoglobin 13.1 g/dL (12.0-16.0); Mean Corpuscular HGB CONC 34.1 g/dL (32.0-36.0); Mean Corpuscular Hemoglobin 33.7 pg (27.0-31.0); Mean Corpuscular Volume 98.8 fL (78.0-98.0); Mean Platelet Volume 7.4 fL (7.4-10.4); Platelet Count 236 thou/uL (130-400); Red Blood Cell (RBC) Count 3.88 mill/uL (4.20-5.40); White Blood Cell (WBC) Count 8.4 thou/uL (4.8-10.8)
[2018-08-18 05:39] LABS: ALT (SGPT) 88 U/L (8-55); AST (SGOT) 27 U/L (5-34); Albumin 2.8 g/dL (3.4-4.8); Alkaline Phosphatase 66 U/L (40-150); Anion Gap 13 mmol/L (10-20); BUN (Urea Nitrogen) 9 mg/dL (9.8-20.1); Bilirubin, Total 0.7 mg/dL (0.2-1.2); Calc. Creatinine Clearance 89 mL/min (70-130); Carbon Dioxide 27 mmol/L (23-31); Chloride 103 mmol/L (98-107); Estimated GFR-MDRD 77; Globulin 2.5 g/dL (2.4-3.5); Glucose 104 mg/dL (80-115); Protein, Total 5.3 g/dL (6.0-8.3); Sodium 139 mmol/L (136-145)
--- NOTE | 2018-08-18 05:42 | PDOC.CTH ---
Cardiology Progress Note - Subjective Rate better but still on IV CCB - Objective Vital Signs Temp Pulse Resp BP Pulse Ox 08/18/18 03:52 98 F 83 13 119/56 L 92 L 08/17/18 20:22 117 H 08/17/18 19:40 97.8 F 124 H 16 113/70 98 Weight 172 lb 11.2 oz 08/16/18 08/17/18 08/18/18 06:59 06:59 06:59 Intake Total 2000 1968 1939 Output Total 1965 2875 1850 Balance -499 -906 90 - Physical Examination General/Neuro: alert & oriented x3, NAD Neck: carotid US brisk, no JVD present Lungs: CTA, unlabored respirations Heart: other: (irr) Abdomen: no HSM, NT/ND, soft Extremities: + femoral B - Telemetry Telemetry Rhythm: irr - Labs Result Diagrams: 08/18/18 04:44 08/18/18 04:44 Troponin/CKMB Troponin I Less than 0.010 ng/mL (< 0.028) 08/14/18 12:08 - Assessment/Plan afib pneumonia Increase po CCB to 90mg Q6h If hr still not controlled, consider CV Pt has been on ACT and nto missed dose of xarelto Abx
[2018-08-18] MEDS ORDERED: Diltiazem HCl SR 90 mg Capsule PO SCH (06:00)
[2018-08-18] MEDS: Metoclopramide HCl 10 MG/2 ML VIAL IVP PRN (07:47)
[2018-08-18] MEDS: guaiFENesin ER 600 MG TAB PO SCH ×2 (10:12→20:30)
[2018-08-18] MEDS: Estradiol 1 MG TAB PO SCH (10:12)
[2018-08-18] MEDS: Lisinopril 2.5 MG TAB PO SCH (10:13)
--- NOTE | 2018-08-18 10:22 | PDOC.PN ---
- Subjective Encounter Start Date: 08/18/18 Encounter Start Time: 07:30 Patient seen and examined. No new complaints. No overnight events - Objective Resuscitation Status - Order Detail: 08/14/18 14:14 Resuscitation Status Routine Resuscitation Status: FULL: Full Resuscitation MAR Reviewed: Yes Vital Signs & Weight: Vital Signs (12 hours) Temp Pulse Resp BP Pulse Ox 08/18/18 07:42 97.6 F 97 20 128/70 96 08/18/18 03:52 98 F 83 13 119/56 L 92 L Weight Weight 169 lb 14.4 oz I&O: 08/17/18 08/18/18 08/19/18 06:59 06:59 06:59 Intake Total 1969 2450 Output Total 2877 2750 Balance -906 -300 Result Diagrams: 08/18/18 04:44 08/18/18 04:44 EKG Reviewed by me: Yes (afib) Phys Exam - Physical Examination Constitutional: NAD HEENT: PERRLA, moist MMs, sclera anicteric Neck: no JVD, supple Respiratory: no wheezing, no rhonchi, clear to auscultation bilateral Cardiovascular: irregular SM+ Gastrointestinal: soft, non-tender, no distention, positive bowel sounds Musculoskeletal: no edema, pulses present Neurological: non-focal, normal sensation Lymphatic: no nodes Psychiatric: normal affect, A&O x 3 Skin: no rash, normal turgor Dx/Plan (1) Acute systolic heart failure, ACC/AHA stage C Code(s): I50.21 - ACUTE SYSTOLIC (CONGESTIVE) HEART FAILURE Status: Acute (2) Severe mitral regurgitation Code(s): I34.0 - NONRHEUMATIC MITRAL (VALVE) INSUFFICIENCY Status: Acute (3) Acute kidney failure Status: Resolved (4) Atrial fibrillation with RVR Code(s): I48.91 - UNSPECIFIED ATRIAL FIBRILLATION Status: Acute (5) Community acquired bacterial pneumonia Code(s): J15.9 - UNSPECIFIED BACTERIAL PNEUMONIA Status: Acute (6) Lactic acidosis Code(s): E87.2 - ACIDOSIS Status: Resolved (7) Sepsis with acute organ dysfunction Code(s): A41.9 - SEPSIS, UNSPECIFIED ORGANISM; R65.20 - SEVERE SEPSIS WITHOUT SEPTIC SHOCK Status: Acute (8) Transaminitis Code(s): R74.0 - NONSPEC ELEV OF LEVELS OF TRANSAMNS & LACTIC ACID DEHYDRGNSE Status: Acute (9) Chronic anticoagulation Code(s): Z79.01 - INTERNAL CONTROLS SPECIALIST (CURRENT) USE OF ANTICOAGULANTS Status: Chronic (10) GERD (gastroesophageal reflux disease) Code(s): K21.9 - GASTRO-ESOPHAGEAL REFLUX DISEASE WITHOUT ESOPHAGITIS Status: Chronic (11) Hypertension Code(s): I10 - ESSENTIAL (PRIMARY) HYPERTENSION Status: Chronic - Plan cont current plan of care, continue antibiotics * medication reviewed as below * symptomatic treatment * further plan will defer to cardiology * if there is no further plan from cardiology, then will consider discharge tomorrow * today will adjust rate control meds. Review of Systems - Review of Systems ENT: negative: Ear Pain, Ear Discharge, Nose Pain, Nose Discharge, Nose Congestion, Mouth Pain, Mouth Swelling, Throat Pain, Throat Swelling, Other Respiratory: negative: Cough, Dry, Shortness of Breath, Hemoptysis, SOB with Excertion, Pleuritic Pain, Sputum, Wheezing Cardiovascular: negative: chest pain, palpitations, orthopnea, paroxysmal nocturnal dyspnea, edema, light headedness, other Gastrointestinal: negative: Nausea, Vomiting, Abdominal Pain, Diarrhea, Constipation, Melena, Hematochezia, Other Genitourinary: negative: Dysuria, Frequency, Incontinence, Hematuria, Retention , Other Musculoskeletal: negative: Neck Pain, Shoulder Pain, Arm Pain, Back Pain, Hand Pain, Leg Pain, Foot Pain, Other Skin: negative: Rash, Lesions, Jose, Bruising, Other - Medications/Allergies Allergies/Adverse Reactions: Allergies Allergy/AdvReac Type Severity Reaction Status Date / Time Penicillins Allergy Verified 12/17/16 14:44 Medications: Current Medications Acetaminophen (Tylenol) 650 mg PO Q4H PRN PRN Reason: Headache/Fever/Mild Pain (1-3) Hydrocodone Bitart/Acetaminophen ([place] 5/325) 1 tab PO Q4H PRN PRN Reason: Moderate Pain (4-6) Last Admin: 08/16/18 21:37 Dose: 1 tab Albuterol/Ipratropium (Duoneb) 3 ml NEB Q1OY-IB PRN PRN Reason: SOB &/or Wheezing Artificial Tears (Tears Naturale) 2 drop EA EYE PRN PRN PRN Reason: Dry Eyes Bisacodyl (Dulcolax) 10 mg PO DAILYPRN PRN PRN Reason: Constipation Bisacodyl (Dulcolax) 10 mg [place] DAILYPRN PRN PRN Reason: Constipation Calcium Carbonate (Tums) 1,000 mg PO Q4H PRN PRN Reason: Heartburn or Indigestion Digoxin (Lanoxin) 0.25 mg SLOW IVP 2000 [facility] Last Admin: 08/17/18 20:22 Dose: 0.25 mg Diltiazem HCl (Cardizem) 90 mg PO Q6HR [facility] Estradiol (Estrace) 0.5 mg PO DAILY [facility] Last Admin: 08/18/18 10:12 Dose: 0.5 mg Guaifenesin (Robitussin Sf) 200 mg PO Q4H PRN PRN Reason: Cough Guaifenesin (Mucinex) 600 mg PO Q12HR [facility] Last Admin: 08/18/18 10:12 Dose: 600 mg Hydralazine HCl (Apresoline) 10 mg SLOW IVP Q4H PRN PRN Reason: SBP > 180 and HR < 70 Levofloxacin 500 mg/ Device 100 mls @ 100 mls/hr IVPB 1400 [facility] Last Admin: 08/17/18 14:18 Dose: 100 mls Diltiazem HCl 125 mg/ Sodium (Chloride) 125 mls @ 2.5 mls/hr IVPB INF [facility]; Protocol Last Admin: 08/16/18 23:35 Dose: 125 mls Lisinopril (Zestril) 2.5 mg PO DAILY [facility] Last Admin: 08/18/18 10:13 Dose: 2.5 mg Loperamide HCl (Imodium) 2 mg PO PRN PRN PRN Reason: Diarrhea/Loose Stools Loratadine (Claritin) 10 mg PO DAILYPRN PRN PRN Reason: Sinus Symptoms Metoclopramide HCl (Reglan) 5 mg IVP Q6H PRN PRN Reason: Nausea Last Admin: 08/18/18 07:47 Dose: 5 mg Mineral Oil/White Petrolatum (Eucerin Cream) 0 gm TOP BIDPRN PRN PRN Reason: Dry Skin Pantoprazole Sodium (Protonix) 40 mg PO DAILY [facility] Last Admin: 08/18/18 10:13 Dose: 40 mg Rivaroxaban (Xarelto) 20 mg PO QPM-[facility] Last Admin: 08/17/18 17:02 Dose: 20 mg Senna/Docusate Sodium (Senokot S) 2 tab PO BID PRN PRN Reason: Constipation Sodium Chloride ([place] Nasal [place] 0.65%) 0 ml EA NARE QIDPRN PRN PRN Reason: Nasal Congestion Sodium Chloride (Flush - Normal Saline) 10 ml IVF Q12HR [facility] Last Admin: 08/18/18 10:14 Dose: 10 ml Sodium Chloride (Flush - Normal Saline) 10 ml IVF PRN PRN PRN Reason: Saline Flush Throat Lozenges (Cepastat Lozenges) 1 maribeth PO Q2H PRN PRN Reason: Sore Throat Zolpidem Tartrate (Ambien) 5 mg PO HSPRN PRN PRN Reason: Insomnia Last Admin: 08/17/18 20:21 Dose: 5 mg
[2018-08-18] MEDS: Rivaroxaban 10 MG TAB PO SCH (16:45)
[2018-08-18] MEDS: Digoxin 0.5 MG/2 ML AMP SLOW IVP SCH (20:29)
[2018-08-18] MEDS: Zolpidem Tartrate 5 MG TAB PO PRN (20:30)
[2018-08-19] MEDS: Acetaminophen 325 MG TAB PO PRN ×3 (00:03→20:10)
[2018-08-19] MEDS: guaiFENesin ER 600 MG TAB PO SCH ×2 (08:49→20:09)
[2018-08-19] MEDS: Lisinopril 2.5 MG TAB PO SCH (08:51)
[2018-08-19] MEDS: Estradiol 1 MG TAB PO SCH (08:51)
--- NOTE | 2018-08-19 11:02 | PDOC.PN ---
- Subjective Encounter Start Date: 08/19/18 Encounter Start Time: 07:50 Patient seen and examined. No new complaints. No overnight events - Objective Resuscitation Status - Order Detail: 08/14/18 14:14 Resuscitation Status Routine Resuscitation Status: FULL: Full Resuscitation MAR Reviewed: Yes Vital Signs & Weight: Vital Signs (12 hours) Temp Pulse Resp BP Pulse Ox 08/19/18 07:18 97.4 F L 70 19 141/70 H 98 08/19/18 03:49 97.6 F 80 16 129/61 92 L 08/19/18 00:00 135 H 102/61 Weight Weight 164 lb 11.2 oz I&O: 08/18/18 08/19/18 08/20/18 06:59 06:59 06:59 Intake Total 2450 1127.2 Output Total 2750 2525 Balance -300 -1397.8 Result Diagrams: 08/18/18 04:44 08/18/18 04:44 EKG Reviewed by me: Yes (afib variable rate) Phys Exam - Physical Examination Constitutional: NAD HEENT: PERRLA, moist MMs, sclera anicteric Neck: no JVD, supple Respiratory: no wheezing, no rales, no rhonchi Cardiovascular: no significant murmur, irregular Gastrointestinal: soft, non-tender, no distention, positive bowel sounds Musculoskeletal: no edema, pulses present Neurological: non-focal, normal sensation, moves all 4 limbs Lymphatic: no nodes Psychiatric: normal affect, A&O x 3 Skin: no rash, normal turgor Dx/Plan (1) Acute systolic heart failure, ACC/AHA stage C Code(s): I50.21 - ACUTE SYSTOLIC (CONGESTIVE) HEART FAILURE Status: Acute (2) Severe mitral regurgitation Code(s): I34.0 - NONRHEUMATIC MITRAL (VALVE) INSUFFICIENCY Status: Acute (3) Acute kidney failure Status: Resolved (4) Atrial fibrillation with RVR Code(s): I48.91 - UNSPECIFIED ATRIAL FIBRILLATION Status: Acute (5) Community acquired bacterial pneumonia Code(s): J15.9 - UNSPECIFIED BACTERIAL PNEUMONIA Status: Acute (6) Lactic acidosis Code(s): E87.2 - ACIDOSIS Status: Resolved (7) Sepsis with acute organ dysfunction Code(s): A41.9 - SEPSIS, UNSPECIFIED ORGANISM; R65.20 - SEVERE SEPSIS WITHOUT SEPTIC SHOCK Status: Acute (8) Transaminitis Code(s): R74.0 - NONSPEC ELEV OF LEVELS OF TRANSAMNS & LACTIC ACID DEHYDRGNSE Status: Acute (9) Chronic anticoagulation Code(s): Z79.01 - SENIOR CARE (CURRENT) USE OF ANTICOAGULANTS Status: Chronic (10) GERD (gastroesophageal reflux disease) Code(s): K21.9 - GASTRO-ESOPHAGEAL REFLUX DISEASE WITHOUT ESOPHAGITIS Status: Chronic (11) Hypertension Code(s): I10 - ESSENTIAL (PRIMARY) HYPERTENSION Status: Chronic - Plan cont current plan of care, continue antibiotics * change levaquin PO * today plan for cardioversion * medication reviewed as below * symptomatic treatment * monitor today. Review of Systems - Review of Systems ENT: negative: Ear Pain, Ear Discharge, Nose Pain, Nose Discharge, Nose Congestion, Mouth Pain, Mouth Swelling, Throat Pain, Throat Swelling, Other Respiratory: negative: Cough, Dry, Shortness of Breath, Hemoptysis, SOB with Excertion, Pleuritic Pain, Sputum, Wheezing Cardiovascular: negative: chest pain, palpitations, orthopnea, paroxysmal nocturnal dyspnea, edema, light headedness, other Gastrointestinal: negative: Nausea, Vomiting, Abdominal Pain, Diarrhea, Constipation, Melena, Hematochezia, Other Genitourinary: negative: Dysuria, Frequency, Incontinence, Hematuria, Retention , Other Musculoskeletal: negative: Neck Pain, Shoulder Pain, Arm Pain, Back Pain, Hand Pain, Leg Pain, Foot Pain, Other Skin: negative: Rash, Lesions, Jose, Bruising, Other - Medications/Allergies Allergies/Adverse Reactions: Allergies Allergy/AdvReac Type Severity Reaction Status Date / Time Penicillins Allergy Verified 12/17/16 14:44 Medications: Current Medications Acetaminophen (Tylenol) 650 mg PO Q4H PRN PRN Reason: Headache/Fever/Mild Pain (1-3) Last Admin: 08/19/18 00:03 Dose: 650 mg Hydrocodone Bitart/Acetaminophen ([place] 5/325) 1 tab PO Q4H PRN PRN Reason: Moderate Pain (4-6) Last Admin: 08/16/18 21:37 Dose: 1 tab Albuterol/Ipratropium (Duoneb) 3 ml NEB [id number] PRN PRN Reason: SOB &/or Wheezing Artificial Tears (Tears Naturale) 2 drop EA EYE PRN PRN PRN Reason: Dry Eyes Bisacodyl (Dulcolax) 10 mg PO DAILYPRN PRN PRN Reason: Constipation Bisacodyl (Dulcolax) 10 mg [place] DAILYPRN PRN PRN Reason: Constipation Calcium Carbonate (Tums) 1,000 mg PO Q4H PRN PRN Reason: Heartburn or Indigestion Digoxin (Lanoxin) 0.25 mg SLOW IVP 2000 [facility] Last Admin: 08/18/18 20:29 Dose: 0.25 mg Diltiazem HCl (Cardizem) 90 mg PO Q6HR [facility] Last Admin: 08/19/18 05:19 Dose: 90 mg Estradiol (Estrace) 0.5 mg PO DAILY [facility] Last Admin: 08/19/18 08:51 Dose: 0.5 mg Guaifenesin (Robitussin Sf) 200 mg PO Q4H PRN PRN Reason: Cough Guaifenesin (Mucinex) 600 mg PO Q12HR [facility] Last Admin: 08/19/18 08:49 Dose: 600 mg Hydralazine HCl (Apresoline) 10 mg SLOW IVP Q4H PRN PRN Reason: SBP > 180 and HR < 70 Levofloxacin 500 mg/ Device 100 mls @ 100 mls/hr IVPB 1400 [facility] Last Admin: 08/18/18 14:53 Dose: 100 mls Lisinopril (Zestril) 2.5 mg PO DAILY [facility] Last Admin: 08/19/18 08:51 Dose: 2.5 mg Loperamide HCl (Imodium) 2 mg PO PRN PRN PRN Reason: Diarrhea/Loose Stools Loratadine (Claritin) 10 mg PO DAILYPRN PRN PRN Reason: Sinus Symptoms Metoclopramide HCl (Reglan) 5 mg IVP Q6H PRN PRN Reason: Nausea Last Admin: 08/18/18 07:47 Dose: 5 mg Mineral Oil/White Petrolatum (Eucerin Cream) 0 gm TOP BIDPRN PRN PRN Reason: Dry Skin Pantoprazole Sodium (Protonix) 40 mg PO DAILY [facility] Last Admin: 08/19/18 08:49 Dose: 40 mg Rivaroxaban (Xarelto) 20 [facility] Last Admin: 08/18/18 16:45 Dose: 20 mg Senna/Docusate Sodium (Senokot S) 2 tab PO BID PRN PRN Reason: Constipation Sodium Chloride ([place] Nasal [place] 0.65%) 0 ml EA NARE QIDPRN PRN PRN Reason: Nasal Congestion Sodium Chloride (Flush - Normal Saline) 10 ml IVF Q12HR [facility] Last Admin: 08/19/18 08:52 Dose: 10 ml Sodium Chloride (Flush - Normal Saline) 10 ml IVF PRN PRN PRN Reason: Saline Flush Throat Lozenges (Cepastat Lozenges) 1 maribeth PO Q2H PRN PRN Reason: Sore Throat Zolpidem Tartrate (Ambien) 5 mg PO HSPRN PRN PRN Reason: Insomnia Last Admin: 08/18/18 20:30 Dose: 5 mg
[2018-08-19 11:09] LABS: Hemoglobin 13.8 g/dL (12.0-16.0); Platelet Count 255 thou/uL (130-400)
[2018-08-19] MEDS: Metoclopramide HCl 10 MG/2 ML VIAL IVP PRN (14:47)
[2018-08-19] MEDS: Rivaroxaban 10 MG TAB PO SCH (17:08)
[2018-08-19] MEDS: Flecainide 50 MG TAB PO SCH (20:09)
[2018-08-19] MEDS: Zolpidem Tartrate 5 MG TAB PO PRN (20:09)
[2018-08-19] MEDS: Digoxin 0.5 MG/2 ML AMP SLOW IVP SCH (20:10)
[2018-08-19] MEDS: Metoprolol Tartrate 25 MG TAB PO SCH (20:10)
--- NOTE | 2018-08-20 08:02 | PRG ---
DATE OF SERVICE: 08/19/2018 SUBJECTIVE: Ms. Gees heart rate continues to be elevated in the 90s to one-teens. She is off IV Cardizem. She is on 360 mg of p.o. Cardizem. OBJECTIVE: VITAL SIGNS: Blood pressure 160/72, pulse 92, and temperature 99. LUNGS: Clear to auscultation. HEART: Irregularly irregular. ABDOMEN: Soft, nontender, and nondistended. EXTREMITIES: No edema. IMPRESSION: Atrial fibrillation. RECOMMENDATIONS: We will add flecainide 50 mg p.o. b.i.d. with first dose now. We will add low-dose beta-natty therapy. If her rate is controlled in a.m., it would be okay from my side for discharge home. If her rate is not well controlled, we will then discuss cardioversion. I did review her previous records. She did miss one dose of Xarelto three days ago. She did not take her dose on Friday. We therefore recommend HI with cardioversion if heart rate not controlled. Did discuss treatment in full detail with Ms. Almanza. Risks include, not limited to damage to teeth, mouth, back of throat, and damage of esophagus as well as need for emergent surgery. Also discussed risk of stroke, burning of skin, need for repeat cardioversion, and failed cardioversion. All questions were answered. Given the above, the patient agreed to proceed with the procedure. Job ID: [id number]
[2018-08-20 09:52] LABS: Anion Gap 14 mmol/L (10-20); BUN (Urea Nitrogen) 13 mg/dL (9.8-20.1); Calc. Creatinine Clearance 80 mL/min (70-130); Calcium 9.3 mg/dL (7.8-10.44); Carbon Dioxide 25 mmol/L (23-31); Chloride 105 mmol/L (98-107); Estimated GFR-MDRD 72; Glucose 102 mg/dL (80-115); Sodium 140 mmol/L (136-145)
[2018-08-20 09:53] LABS: Digoxin 1.26 ng/mL (0.8-2.0)
--- NOTE | 2018-08-20 10:20 | PDOC.PN ---
- Subjective Encounter Start Date: 08/20/18 Encounter Start Time: 07:50 Patient seen and examined. No new complaints. No overnight events - Objective Resuscitation Status - Order Detail: 08/14/18 14:14 Resuscitation Status Routine Resuscitation Status: FULL: Full Resuscitation MAR Reviewed: Yes Vital Signs & Weight: Vital Signs (12 hours) Temp Pulse Resp BP Pulse Ox 08/20/18 07:27 97.5 F L 73 19 148/66 H 94 L 08/20/18 03:10 98.6 F 119 H 14 133/75 94 L Weight Weight 163 lb 6.4 oz I&O: 08/19/18 08/20/18 08/21/18 06:59 06:59 06:59 Intake Total 1127.2 880 Output Total 2525 Balance -1397.8 880 Result Diagrams: 08/19/18 11:00 08/20/18 09:15 Phys Exam - Physical Examination Constitutional: NAD HEENT: PERRLA, moist MMs, sclera anicteric Neck: no JVD, supple Respiratory: no wheezing, no rales, no rhonchi Cardiovascular: no significant murmur, no rub, irregular Gastrointestinal: soft, non-tender, no distention, positive bowel sounds Musculoskeletal: no edema, pulses present Neurological: non-focal, normal sensation Lymphatic: no nodes Psychiatric: normal affect, A&O x 3 Skin: no rash, normal turgor Dx/Plan (1) Acute systolic heart failure, ACC/AHA stage C Code(s): I50.21 - ACUTE SYSTOLIC (CONGESTIVE) HEART FAILURE Status: Acute (2) Severe mitral regurgitation Code(s): I34.0 - NONRHEUMATIC MITRAL (VALVE) INSUFFICIENCY Status: Acute (3) Acute kidney failure Status: Resolved (4) Atrial fibrillation with RVR Code(s): I48.91 - UNSPECIFIED ATRIAL FIBRILLATION Status: Acute (5) Community acquired bacterial pneumonia Code(s): J15.9 - UNSPECIFIED BACTERIAL PNEUMONIA Status: Acute (6) Lactic acidosis Code(s): E87.2 - ACIDOSIS Status: Resolved (7) Sepsis with acute organ dysfunction Code(s): A41.9 - SEPSIS, UNSPECIFIED ORGANISM; R65.20 - SEVERE SEPSIS WITHOUT SEPTIC SHOCK Status: Acute (8) Transaminitis Code(s): R74.0 - NONSPEC ELEV OF LEVELS OF TRANSAMNS & LACTIC ACID DEHYDRGNSE Status: Acute (9) Chronic anticoagulation Code(s): Z79.01 - DIGITAL ACCOUNT DIRECTOR (CURRENT) USE OF ANTICOAGULANTS Status: Chronic (10) GERD (gastroesophageal reflux disease) Code(s): K21.9 - GASTRO-ESOPHAGEAL REFLUX DISEASE WITHOUT ESOPHAGITIS Status: Chronic (11) Hypertension Code(s): I10 - ESSENTIAL (PRIMARY) HYPERTENSION Status: Chronic - Plan cont current plan of care, continue antibiotics * today plan for HI * medication reviewed as below * symptomatic treatment * possible discharge today if cardiology ok. Review of Systems - Review of Systems ENT: negative: Ear Pain, Ear Discharge, Nose Pain, Nose Discharge, Nose Congestion, Mouth Pain, Mouth Swelling, Throat Pain, Throat Swelling, Other Respiratory: negative: Cough, Dry, Shortness of Breath, Hemoptysis, SOB with Excertion, Pleuritic Pain, Sputum, Wheezing Cardiovascular: negative: chest pain, palpitations, orthopnea, paroxysmal nocturnal dyspnea, edema, light headedness, other Gastrointestinal: negative: Nausea, Vomiting, Abdominal Pain, Diarrhea, Constipation, Melena, Hematochezia, Other Genitourinary: negative: Dysuria, Frequency, Incontinence, Hematuria, Retention , Other Musculoskeletal: negative: Neck Pain, Shoulder Pain, Arm Pain, Back Pain, Hand Pain, Leg Pain, Foot Pain, Other - Medications/Allergies Allergies/Adverse Reactions: Allergies Allergy/AdvReac Type Severity Reaction Status Date / Time Penicillins Allergy Verified 12/17/16 14:44 Medications: Current Medications Acetaminophen (Tylenol) 650 mg PO Q4H PRN PRN Reason: Headache/Fever/Mild Pain (1-3) Last Admin: 08/19/18 20:10 Dose: 650 mg Hydrocodone Bitart/Acetaminophen ([place] 5/325) 1 tab PO Q4H PRN PRN Reason: Moderate Pain (4-6) Last Admin: 08/16/18 21:37 Dose: 1 tab Albuterol/Ipratropium (Duoneb) 3 ml NEB [id number] PRN PRN Reason: SOB &/or Wheezing Artificial Tears (Tears Naturale) 2 drop EA EYE PRN PRN PRN Reason: Dry Eyes Bisacodyl (Dulcolax) 10 mg PO DAILYPRN PRN PRN Reason: Constipation Bisacodyl (Dulcolax) 10 mg [place] DAILYPRN PRN PRN Reason: Constipation Calcium Carbonate (Tums) 1,000 mg PO Q4H PRN PRN Reason: Heartburn or Indigestion Digoxin (Lanoxin) 0.25 mg SLOW IVP 1999 [facility] Last Admin: 08/19/18 20:10 Dose: 0.25 mg Diltiazem HCl (Cardizem) 90 mg PO Q6HR [facility] Last Admin: 08/20/18 05:45 Dose: 90 mg Estradiol (Estrace) 0.5 mg PO DAILY [facility] Last Admin: 08/19/18 08:51 Dose: 0.5 mg Flecainide Acetate (Tambocor) 50 mg PO Q12HR [facility] Last Admin: 08/19/18 20:09 Dose: 50 mg Guaifenesin (Robitussin Sf) 200 mg PO Q4H PRN PRN Reason: Cough Guaifenesin (Mucinex) 600 mg PO Q12HR [facility] Last Admin: 08/19/18 20:09 Dose: 600 mg Hydralazine HCl (Apresoline) 10 mg SLOW IVP Q4H PRN PRN Reason: SBP > 180 and HR < 70 Lisinopril (Zestril) 2.5 mg PO DAILY [facility] Last Admin: 08/19/18 08:51 Dose: 2.5 mg Loperamide HCl (Imodium) 2 mg PO PRN PRN PRN Reason: Diarrhea/Loose Stools Loratadine (Claritin) 10 mg PO DAILYPRN PRN PRN Reason: Sinus Symptoms Metoclopramide HCl (Reglan) 5 mg IVP Q6H PRN PRN Reason: Nausea Last Admin: 08/19/18 14:47 Dose: 5 mg Metoprolol Tartrate (Lopressor) 12.5 mg PO BID [facility] Last Admin: 08/19/18 20:10 Dose: 12.5 mg Mineral Oil/White Petrolatum (Eucerin Cream) 0 gm TOP BIDPRN PRN PRN Reason: Dry Skin Pantoprazole Sodium (Protonix) 40 mg PO DAILY [facility] Last Admin: 08/19/18 08:49 Dose: 40 mg Rivaroxaban (Xarelto) 20 mg PO QPM-WM [facility] Last Admin: 08/19/18 17:08 Dose: 20 mg Senna/Docusate Sodium (Senokot S) 2 tab PO BID PRN PRN Reason: Constipation Sodium Chloride ([place] Nasal [place] 0.65%) 0 ml EA NARE QIDPRN PRN PRN Reason: Nasal Congestion Sodium Chloride (Flush - Normal Saline) 10 ml IVF Q12HR [facility] Last Admin: 08/19/18 20:10 Dose: 10 ml Sodium Chloride (Flush - Normal Saline) 10 ml IVF PRN PRN PRN Reason: Saline Flush Throat Lozenges (Cepastat Lozenges) 1 maribeth PO Q2H PRN PRN Reason: Sore Throat Zolpidem Tartrate (Ambien) 5 mg PO HSPRN PRN PRN Reason: Insomnia Last Admin: 08/19/18 20:09 Dose: 5 mg
[2018-08-20] MEDS ORDERED: PROPOFOL 20 ML ONE (10:23)
[2018-08-20] MEDS: Estradiol 1 MG TAB PO SCH (11:39)
[2018-08-20] MEDS: Metoprolol Tartrate 25 MG TAB PO SCH (11:40)
[2018-08-20] MEDS: guaiFENesin ER 600 MG TAB PO SCH ×2 (11:40→19:58)
[2018-08-20] MEDS: Lisinopril 2.5 MG TAB PO SCH (11:40)
[2018-08-20] MEDS: Flecainide 50 MG TAB PO SCH (11:41)
--- NOTE | 2018-08-20 11:42 | DIS ---
DATE OF ADMISSION: 08/14/2018 DATE OF DISCHARGE: 08/20/2018 PRIMARY CARE PHYSICIAN: Dr. Ricardo Hannah. DISCHARGE DISPOSITION: Home. PRIMARY DISCHARGE DIAGNOSES: Atrial fibrillation with rapid ventricular response; acute systolic heart failure, stage C; community-acquired bacterial pneumonia; sepsis with acute organ dysfunction; severe mitral regurgitation; abnormal LFT due to sepsis; acute kidney failure, improved. SECONDARY DISCHARGE DIAGNOSES: Hypertension; chronic atrial fibrillation, chronic anticoagulation; gastroesophageal reflux disease. PRIMARY PROCEDURE/OPERATION: Transesophageal echocardiography. RADIOLOGICAL INVESTIGATION: Chest x-ray showed bilateral pneumonia, left more than right. Echocardiography showed EF 20% to 25%, severe mitral regurgitation. SIGNIFICANT LABORATORY DATA: WBC 8.4, hemoglobin 13.8, platelet 255. INR 1.6. Sodium 140, potassium 4.0, BUN 13, creatinine 0.79, calcium 9.3. BNP 173.4. Urinalysis unremarkable. Blood culture negative. DISCHARGE MEDICATIONS: 1. Estradiol 0.5 mg p.o. daily. 2. Benicar 20 mg daily. 3. Protonix 40 mg daily. 4. Xarelto 20 mg daily. 5. Tambocor 50 mg twice daily. 6. Digoxin 0.125 mg p.o. daily. 7. Toprol-XL 25 mg p.o. daily. 8. Cardizem 90 mg q.6 hourly. CONTRAINDICATION: None. CODE STATUS: Full code. INPATIENT MARINA DRY DOCK MANAGER: Cardiology Group was consulted while in hospital. CASE RESULT PENDING ON DISCHARGE: None. ALLERGIES: PENICILLIN. DISCHARGE PLAN: Posthospital, the patient will follow up with primary care physician Dr. Sherman as instructed. HOSPITAL COURSE: A 67-year-old female, who had history of upper respiratory infection and subsequently bronchitis and subsequently pneumonia. She was treated as an outpatient basis by primary care physician without any improvement and that is why she required admission. On admission, the patient was diagnosed with bilateral pneumonia left more than right, associated with sepsis with acute organ dysfunction criteria. She also had acute kidney injury, abnormal LFT, which was all related with sepsis secondary to pneumonia. The patient was treated with broad-spectrum antibiotic therapy with cefepime and Levaquin, and upon discharge we changed to Omnicef for another 5 days. The patient also had atrial fibrillation with rapid ventricular response and that is why it was treated with Cardizem drip and Cardiology was following. Cardiology started on Cardizem p.o. as well as Tambocor. The patient is already on chronic anticoagulation therapy. During this admission, echocardiography showed low EF and that is why we started on Toprol-XL along with her home medication Benicar. During this admission, the patient also underwent transesophageal echocardiography. The patient is overall doing very well. Her rate is under control. She is in atrial fibrillation. If Cardiology okay, then we will consider discharging her home later on today and she can follow up with [facility]iology [facility] as an outpatient basis for further evaluation and treatment. At this point, we are suspecting that this patient may have nonischemic cardiomyopathy, but underlying other etiology needs to be excluded and that type of investigation will be done as an outpatient basis. The patient is seen and examined at bedside today. Please see my progress note from today for further detail. Job ID: [id number]
[2018-08-20] MEDS ORDERED: PROPOFOL 200 MG/20 ML VIAL ONE (15:07)
[2018-08-20] MEDS ORDERED: Amiodarone 200 MG TAB PO SCH (16:00)
[2018-08-20] MEDS: Rivaroxaban 10 MG TAB PO SCH (17:48)
[2018-08-20] MEDS ORDERED: Metoprolol Tartrate 25 MG TAB PO SCH (18:15)
[2018-08-20] MEDS: Digoxin 0.5 MG/2 ML AMP SLOW IVP SCH (19:58)
[2018-08-20] MEDS: Amiodarone 200 MG TAB PO SCH (19:58)
[2018-08-20] MEDS: Zolpidem Tartrate 5 MG TAB PO PRN (19:58)
[2018-08-20] MEDS ORDERED: Metoclopramide HCl 10 MG TAB PO PRN (20:54)
--- NOTE | 2018-08-20 22:15 | CON ---
DATE OF CONSULTATION: REFERRING PHYSICIAN: Dr. Sherman. REASON FOR CONSULTATION: I am seeing Ms. Almanza at our [facility] telemetry floor as an Electrophysiology consult. PROBLEMS: 1. Persistent atrial fibrillation, previously paroxysmal. a. Initial flecainide administration and subsequent cardioversion with early recurrence atrial fibrillation noted. 2. Valvular heart disease, previously [id number] MR on prior echos, now severe MR on admission. 3. Cardiomyopathy. a. Previously normal LVEF, now LVEF 20-25% on admission. 4. Concomitant pneumonia on admission, not resolving. 5. Acute kidney injury, resolved. 6. Transaminitis on admission has resolved. 7. History of normal Lexiscan on October 24, 2015. ALLERGIES: PENICILLINS. MEDICATIONS: At home included: 1. Pantoprazole. 2. Estradiol. 3. Celecoxib. 4. Olmesartan. 5. Rivaroxaban 10 mg daily. 6. Atenolol 12.5 twice daily. CURRENT MEDICATION: Includes: 1. Tylenol. 2. [place] p.r.n. 3. DuoNeb. 4. Artificial Tears. 5. Dulcolax. 6. Tums. 7. Digoxin x1. 8. Diltiazem 90 mg q.6h. 9. Estradiol. 10. Guaifenesin. 11. Mucinex. 12. Alprazolam. 13. Zestril. 14. Imodium. 15. Claritin. 16. Reglan. 17. Lopressor 12.5 mg twice daily. 18. Protonix. 19. Xarelto. 20. Senokot. 21. Throat lozenges. 22. Zolpidem. 23. Flecainide 50 q.12 hours, received 2 dosages just so far. SUBJECTIVE: Mrs. Almanza is here admitted on the with symptoms of pneumonia and also was found to be in atrial fibrillation. She denied symptoms of palpitation , but she is dyspneic and fatigued. Her blood pressure was low, heart rates were very rapid. She was evaluated by Dr. Levin as well. An echocardiogram was suggestive of severe reduced LV function and worsened MR in a severe range. She was treated aggressively with antibiotic therapy and her symptoms have improved. Now with resolution of the pneumonia, atrial fibrillation persisted and her atrial fibrillation rates were rapid. She required both digoxin, diltiazem and low- dose beta-natty therapy for rate controls. Now, the rates are more reasonable. She also received 1 dose of flecainide yesterday and cardioversion was performed, but she did not keep sinus rhythm beyond couple of minutes, hence I was consulted for further management. She denies passing out. No stroke-like symptoms. No neurological deficits. No fever, chills or cough at this time. No pain, no orthopnea. Denies angina. Rest of 12-point system currently unremarkable. PAST MEDICAL HISTORY: As above. She has known about atrial fibrillation for a couple of years even in her prior location before moving in town was noted. She has had no prior history of heart disease or heart attacks. She has some GERD and hypertension. PAST SURGICAL HISTORY: Significant for: 1. Right hip replacement. 2. Cataract surgery. 3. Bladder surgery. 4. Hysterectomy. FAMILY HISTORY: Significant for atrial fibrillation. SOCIAL HISTORY: The patient is . Lives at home with her . Denies tobacco, ETOH or drug use. OBJECTIVE DATA: VITAL SIGNS: Blood pressure is 152/99, heart rate 122, respirations 19, temperature 97.8 degrees Fahrenheit. GENERAL: Alert and oriented woman, in no apparent distress. NECK: Supple. Jugular veins not distended. CHEST: Coarse without crackles. HEART: Sounds are irregularly irregular, S1 is variable, 1/6 holosystolic murmur is heard at the left lower sternal border. PMI is difficult to palpate. ABDOMEN: Benign. Bowel sounds positive. LOWER EXTREMITY: Without edema, clubbing, or cyanosis. Pulses are adequate. NEUROLOGIC: The patient is nonfocal. MUSCULOSKELETAL: No joint swelling or deformity. SKIN: Without rash. DATABASE: EKGs reviewed. Initial EKG was atrial fibrillation with rates of 146 beats per minute. The QTc is 498 on initial EKG. Subsequent EKG reveals better rate control with rate of 90 beats per minute on the 17th and QTc is down to 420 milliseconds. Telemetry strips reviewed revealing continued atrial fibrillation pre and post cardioversion. LABORATORY DATA: The white cell count is currently 8.4, hemoglobin 13.1, platelet count is 236. Sodium today 140, potassium 4, BUN is 13, creatinine 0.79. The AST and ALT currently are 27/88, although she had elevation of AST up to 145 on admission, but then gradually resolved. BNP was 426 on admission, currently 173. The troponin I's were less than 0.01. Did not note any thyroid studies. The chest x-ray on the revealed bilateral lower lobe infiltrates, left greater than right. ASSESSMENT AND PLAN: Mrs. Almanza is a 67-year-old woman with a history of paroxysmal atrial fibrillation, [id number] mitral regurgitation, but normal left ventricular ejection fraction in the past, who presents with symptoms of pneumonia. She is also found to be in atrial fibrillation with rapid rates and her initial echo on admission revealed severely reduced LVEF and worsening of MR to severe range. After pulmonary stabilization, resolution of her pneumonia symptoms, she underwent a HI-guided cardioversion by Dr. Sherman, but she had early recurrence of atrial fibrillation despite of a dose of flecainide given to her the preceding day. I was consulted for further management of her atrial fibrillation. We had a long discussion with the patient about the mechanism of atrial fibrillation and potential treatment options. We discussed the likely need for medical stabilization prior to ablation therapy , hence the failing flecainide and history of LV dysfunction. I think amiodarone might be more optimal medication for management of her arrhythmia. Hopefully, we will achieve rate control with this drug. She may or may not need additional diltiazem and I would likely stop digoxin as well. Flecainide will be also discontinued. She only received two doses so far with the lower dose of 50 mg. We will monitor any QT prolongation in the meantime. After adequate rate control achieved, we will likely have her be discharged home and after a reasonable amount of time given for amiodarone loading, she will be brought back for a cardioversion as an outpatient. Continued Xarelto therapy is advised and monitoring her LV function is prudent. Long-term, she would benefit from ablation therapy after again clinical stabilization. I suspect her LVEF will improve with rate control and maintenance of sinus rhythm. Should her valve function not improve again with these measures, valve repair is a strong consideration. Discussed these issues with the patient's family and Dr. Sherman. We will follow up with you. Thank you again for allowing me to participate in the care of this patient. Job ID: [id number] MTDD
[2018-08-21 05:48] LABS: Free T4 (Free Thyroxine) 1.27 ng/dL (0.70-1.48); Thyroid Stimulating Hormone 1.3607 uIU/mL (0.35-4.94)
[2018-08-21] MEDS: Amiodarone 200 MG TAB PO SCH ×3 (09:05→21:20)
[2018-08-21] MEDS: Estradiol 1 MG TAB PO SCH (09:06)
[2018-08-21] MEDS: guaiFENesin ER 600 MG TAB PO SCH ×2 (09:07→21:21)
[2018-08-21] MEDS: Lisinopril 2.5 MG TAB PO SCH (09:07)
[2018-08-21] MEDS: Metoprolol Tartrate 25 MG TAB PO SCH ×2 (09:08→21:21)
--- NOTE | 2018-08-21 09:36 | PDOC.PN ---
- Subjective Encounter Start Date: 08/21/18 Encounter Start Time: 07:30 Patient seen and examined. No new complaints. No overnight events she is in afib but rate controlled - Objective Resuscitation Status - Order Detail: 08/14/18 14:14 Resuscitation Status Routine Resuscitation Status: FULL: Full Resuscitation MAR Reviewed: Yes Vital Signs & Weight: Vital Signs (12 hours) Temp Pulse Resp BP BP Pulse Ox 08/21/18 09:07 98 151/73 H 08/21/18 08:55 97.9 F 98 17 151/73 H 97 08/21/18 03:35 98.2 F 124 H 20 121/78 96 08/20/18 23:15 97.9 F 113 H 20 119/71 95 Weight Weight 161 lb 12.8 oz I&O: 08/20/18 08/21/18 08/22/18 06:59 06:59 06:59 Intake Total 880 1480 Output Total 1950 Balance 880 -470 Result Diagrams: 08/19/18 11:00 08/20/18 09:15 EKG Reviewed by me: Yes (afib) Phys Exam - Physical Examination Constitutional: NAD HEENT: PERRLA, moist MMs, sclera anicteric Neck: no JVD, supple Respiratory: no wheezing, no rales, no rhonchi Cardiovascular: no significant murmur, irregular Gastrointestinal: soft, non-tender, no distention, positive bowel sounds Musculoskeletal: no edema, pulses present Neurological: non-focal, normal sensation, moves all 4 limbs Lymphatic: no nodes Psychiatric: normal affect, A&O x 3 Skin: no rash, normal turgor Dx/Plan (1) Acute systolic heart failure, ACC/AHA stage C Code(s): I50.21 - ACUTE SYSTOLIC (CONGESTIVE) HEART FAILURE Status: Acute (2) Severe mitral regurgitation Code(s): I34.0 - NONRHEUMATIC MITRAL (VALVE) INSUFFICIENCY Status: Acute (3) Acute kidney failure Status: Resolved (4) Atrial fibrillation with RVR Code(s): I48.91 - UNSPECIFIED ATRIAL FIBRILLATION Status: Acute (5) Community acquired bacterial pneumonia Code(s): J15.9 - UNSPECIFIED BACTERIAL PNEUMONIA Status: Acute (6) Lactic acidosis Code(s): E87.2 - ACIDOSIS Status: Resolved (7) Sepsis with acute organ dysfunction Code(s): A41.9 - SEPSIS, UNSPECIFIED ORGANISM; R65.20 - SEVERE SEPSIS WITHOUT SEPTIC SHOCK Status: Acute (8) Transaminitis Code(s): R74.0 - NONSPEC ELEV OF LEVELS OF TRANSAMNS & LACTIC ACID DEHYDRGNSE Status: Acute (9) Chronic anticoagulation Code(s): Z79.01 - CARE HOME (CURRENT) USE OF ANTICOAGULANTS Status: Chronic (10) GERD (gastroesophageal reflux disease) Code(s): K21.9 - GASTRO-ESOPHAGEAL REFLUX DISEASE WITHOUT ESOPHAGITIS Status: Chronic (11) Hypertension Code(s): I10 - ESSENTIAL (PRIMARY) HYPERTENSION Status: Chronic - Plan cont current plan of care, continue antibiotics * doxycycline for pneumonia * amiodaron loading as per EP * DC digoxin as per EP * will consider discharge when cardiology OK * medication reviewed as below * symptomatic treatment. Review of Systems - Review of Systems ENT: negative: Ear Pain, Ear Discharge, Nose Pain, Nose Discharge, Nose Congestion, Mouth Pain, Mouth Swelling, Throat Pain, Throat Swelling, Other Respiratory: negative: Cough, Dry, Shortness of Breath, Hemoptysis, SOB with Excertion, Pleuritic Pain, Sputum, Wheezing Cardiovascular: negative: chest pain, palpitations, orthopnea, paroxysmal nocturnal dyspnea, edema, light headedness, other Gastrointestinal: negative: Nausea, Vomiting, Abdominal Pain, Diarrhea, Constipation, Melena, Hematochezia, Other Genitourinary: negative: Dysuria, Frequency, Incontinence, Hematuria, Retention , Other Musculoskeletal: negative: Neck Pain, Shoulder Pain, Arm Pain, Back Pain, Hand Pain, Leg Pain, Foot Pain, Other - Medications/Allergies Allergies/Adverse Reactions: Allergies Allergy/AdvReac Type Severity Reaction Status Date / Time Penicillins Allergy Verified 12/17/16 14:44 Medications: Current Medications Acetaminophen (Tylenol) 650 mg PO Q4H PRN PRN Reason: Headache/Fever/Mild Pain (1-3) Last Admin: 08/19/18 20:10 Dose: 650 mg Hydrocodone Bitart/Acetaminophen ([place] 5/325) 1 tab PO Q4H PRN PRN Reason: Moderate Pain (4-6) Last Admin: 08/16/18 21:37 Dose: 1 tab Albuterol/Ipratropium (Duoneb) 3 ml NEB [id number] PRN PRN Reason: SOB &/or Wheezing Amiodarone HCl (Cordarone) 400 mg PO TID [facility] Last Admin: 08/21/18 09:05 Dose: 400 mg Artificial Tears (Tears Naturale) 2 drop EA EYE PRN PRN PRN Reason: Dry Eyes Bisacodyl (Dulcolax) 10 mg PO DAILYPRN PRN PRN Reason: Constipation Bisacodyl (Dulcolax) 10 mg SC DAILYPRN PRN PRN Reason: Constipation Calcium Carbonate (Tums) 1,000 mg PO Q4H PRN PRN Reason: Heartburn or Indigestion Diltiazem HCl (Cardizem) 90 mg PO Q6HR [facility] Last Admin: 08/21/18 06:05 Dose: 90 mg Doxycycline Hyclate (Vibramycin) 100 mg PO BID [facility] Estradiol (Estrace) 0.5 mg PO DAILY [facility] Last Admin: 08/21/18 09:06 Dose: 0.5 mg Guaifenesin (Robitussin Sf) 200 mg PO Q4H PRN PRN Reason: Cough Guaifenesin (Mucinex) 600 mg PO Q12HR [facility] Last Admin: 08/21/18 09:07 Dose: 600 mg Hydralazine HCl (Apresoline) 10 mg SLOW IVP Q4H PRN PRN Reason: SBP > 180 and HR < 70 Lisinopril (Zestril) 2.5 mg PO DAILY [facility] Last Admin: 08/21/18 09:07 Dose: 2.5 mg Loperamide HCl (Imodium) 2 mg PO PRN PRN PRN Reason: Diarrhea/Loose Stools Loratadine (Claritin) 10 mg PO DAILYPRN PRN PRN Reason: Sinus Symptoms Metoclopramide HCl (Reglan) 5 mg PO Q6H PRN PRN Reason: Nausea Metoprolol Tartrate (Lopressor) 25 mg PO BID [facility] Last Admin: 08/21/18 09:08 Dose: 25 mg Mineral Oil/White Petrolatum (Eucerin Cream) 0 gm TOP BIDPRN PRN PRN Reason: Dry Skin Pantoprazole Sodium (Protonix) 40 mg PO DAILY [facility] Last Admin: 08/21/18 09:08 Dose: 40 mg Rivaroxaban (Xarelto) 20 [facility] PO [facility] Last Admin: 08/20/18 17:48 Dose: 20 mg Senna/Docusate Sodium (Senokot S) 2 tab PO BID PRN PRN Reason: Constipation Sodium Chloride ([place] Nasal [place] 0.65%) 0 ml EA NARE QIDPRN PRN PRN Reason: Nasal Congestion Sodium Chloride (Flush - Normal Saline) 10 ml IVF Q12HR [facility] Last Admin: 08/21/18 09:08 Dose: 10 ml Sodium Chloride (Flush - Normal Saline) 10 ml IVF PRN PRN PRN Reason: Saline Flush Throat Lozenges (Cepastat Lozenges) 1 maribeth PO Q2H PRN PRN Reason: Sore Throat Zolpidem Tartrate (Ambien) 5 mg PO HSPRN PRN PRN Reason: Insomnia Last Admin: 08/20/18 19:58 Dose: 5 mg
[2018-08-21] MEDS: Acetaminophen 325 MG TAB PO PRN ×2 (10:35→21:21)
[2018-08-21 11:21] LABS: Hemoglobin 13.3 g/dL (12.0-16.0); Platelet Count 329 thou/uL (130-400)
--- NOTE | 2018-08-21 11:59 | PDOC.CTH ---
Cardiology Progress Note - Subjective No complaints today. Up to chair. - Objective Vital Signs Temp Pulse Resp BP BP Pulse Ox 08/21/18 09:07 98 151/73 H 08/21/18 08:55 97.9 F 98 17 151/73 H 97 08/21/18 03:35 98.2 F 124 H 20 121/78 96 Weight 161 lb 12.8 oz 08/20/18 08/21/18 08/22/18 06:59 06:59 06:59 Intake Total 880 1480 Output Total 1950 Balance 880 -470 - Physical Examination General/Neuro: alert & oriented x3 Neck: no JVD present Lungs: CTA Heart: other: (IRR, tachy) Abdomen: NT/ND Extremities: other: (no edema) - Telemetry Telemetry Rhythm: AF - Labs Result Diagrams: 08/21/18 11:06 08/21/18 11:06 Troponin/CKMB Troponin I Less than 0.010 ng/mL (< 0.028) 08/14/18 12:08 - Assessment/Plan 1. Persistent and recurrent AF s/p previous failed cardioversion and flecainide therapy. 2. Severe MR 3. NICMO (EF 20-25%) 4. PNA Continue Amio. Will increase metoprolol. Might benefit from Dig given RVR and low EF. Euvolemic. ? LifeVest prior to discharge.
--- NOTE | 2018-08-21 15:47 | PDOC.CTH ---
Cardiology Progress Note - Subjective EP PROGRESS NOTE: 08/21/18 Seen as follow up for atrial fibrillation and cardiomyopathy. Feeling well today has been OOB. No new cardiac issues/complaints - Objective Vital Signs Temp Pulse Resp BP BP Pulse Ox 08/21/18 14:35 112 H 124/79 08/21/18 12:05 97.8 F 96 19 137/82 97 08/21/18 09:07 98 151/73 H 08/21/18 08:55 97.9 F 98 17 151/73 H 97 Weight 161 lb 12.8 oz 08/20/18 08/21/18 08/22/18 06:59 06:59 06:59 Intake Total 880 1480 Output Total 1950 Balance 880 -470 - Physical Examination General/Neuro: alert & oriented x3, NAD Neck: carotid US brisk, no JVD present Lungs: CTA, unlabored respirations Heart: PMI normal Abdomen: NT/ND, soft - Telemetry Telemetry Rhythm: AF - Labs Result Diagrams: 08/21/18 11:06 08/21/18 11:06 Troponin/CKMB Troponin I Less than 0.010 ng/mL (< 0.028) 08/14/18 12:08 - Assessment/Plan 1. Persistent atrial fibrillation -refractory to flecainide with CV - loading on amiodarone, rates better controlled today. continue 400mg PO BID. decreased to 200mg PO BID upon DC x 2 weeks then 200mg PO daily thereafter. 2. Severe MR 3. NICM -EF 20-25%, possibly tachycardia mediated 4. ZENAIDA, resolved 5. CHADS2-VASC: 2 (female, cardiomyopathy) -xarelto 20mg PO QPM, continue Recheck EF in 2 months. I suspect/hope it will normalize. keno terminal operator plan for OP PVAI but will manage this through clinic. Follow up in 6 weeks requested.
[2018-08-21] MEDS: Rivaroxaban 10 MG TAB PO SCH (17:06)
--- NOTE | 2018-08-21 20:58 | EKG ---
Test Reason : POST CARDIOVERSION Blood Pressure : / mmHG Vent. Rate : 090 BPM Atrial Rate : 220 BPM P-R Int : 000 ms QRS Dur : 082 ms QT Int : 344 ms P-R-T Axes : 000 -30 014 degrees QTc Int : 420 ms Atrial fibrillation Left axis deviation Low voltage QRS Abnormal ECG When compared with ECG of 14-AUG-2018 12:07, (Unconfirmed) Vent. rate has decreased BY 56 BPM Confirmed by Whitney NOGUERA ([id number]) on 08/21/2018 8:58:38 PM Referred By: CHARLES Confirmed By:Whitney NOGUERA
--- NOTE | 2018-08-21 21:09 | EKG ---
Test Reason : Blood Pressure : / mmHG Vent. Rate : 084 BPM Atrial Rate : 234 BPM P-R Int : 000 ms QRS Dur : 080 ms QT Int : 326 ms P-R-T Axes : 000 -19 236 degrees QTc Int : 385 ms Atrial fibrillation ,flutter Low voltage QRS Cannot rule out Anterior infarct , age undetermined Abnormal ECG When compared with ECG of 20-AUG-2018 11:04, (Unconfirmed) T wave inversion now evident in Lateral leads Confirmed by Whitney NOGUERA ([id number]) on 08/21/2018 9:08:51 PM Referred By: JULIA Confirmed By:Whitney NOGUERA
[2018-08-21] MEDS: Doxycycline 100 MG CAP PO SCH (21:21)
[2018-08-21] MEDS: Zolpidem Tartrate 5 MG TAB PO PRN (21:22)
[2018-08-22] MEDS: Acetaminophen 325 MG TAB PO PRN (03:20)
[2018-08-22] MEDS: Amiodarone 200 MG TAB PO SCH (08:14)
[2018-08-22] MEDS: guaiFENesin ER 600 MG TAB PO SCH (08:15)
[2018-08-22] MEDS: Lisinopril 2.5 MG TAB PO SCH (08:15)
[2018-08-22] MEDS: Doxycycline 100 MG CAP PO SCH (08:15)
[2018-08-22] MEDS: Metoprolol Tartrate 25 MG TAB PO SCH (08:17)
[2018-08-22] MEDS: Estradiol 1 MG TAB PO SCH (08:23)
--- NOTE | 2018-08-22 09:37 | PDOC.PN ---
- Subjective Encounter Start Date: 08/22/18 Encounter Start Time: 08:00 Patient seen and examined. No new complaints. No overnight events - Objective Resuscitation Status - Order Detail: 08/14/18 14:14 Resuscitation Status Routine Resuscitation Status: FULL: Full Resuscitation MAR Reviewed: Yes Vital Signs & Weight: Vital Signs (12 hours) Temp Pulse Resp BP BP Pulse Ox 08/22/18 08:15 96 125/74 08/22/18 08:11 97.8 F 96 18 125/74 98 08/22/18 04:00 98.1 F 70 18 136/89 Weight Weight 161 lb 6.4 oz I&O: 08/21/18 08/22/18 08/23/18 06:59 06:59 06:59 Intake Total 1480 1200 Output Total 1950 1800 Balance -470 -600 Result Diagrams: 08/21/18 11:06 08/21/18 11:06 EKG Reviewed by me: Yes (afib) Phys Exam - Physical Examination Constitutional: NAD HEENT: PERRLA, moist MMs, sclera anicteric Neck: no JVD, supple Respiratory: no wheezing, no rales, no rhonchi Cardiovascular: irregular sm+ Gastrointestinal: soft, non-tender, no distention, positive bowel sounds Musculoskeletal: no edema, pulses present Neurological: non-focal, normal sensation, moves all 4 limbs Lymphatic: no nodes Psychiatric: normal affect, A&O x 3 Skin: no rash, normal turgor Dx/Plan (1) Acute systolic heart failure, ACC/AHA stage C Code(s): I50.21 - ACUTE SYSTOLIC (CONGESTIVE) HEART FAILURE Status: Acute (2) Severe mitral regurgitation Code(s): I34.0 - NONRHEUMATIC MITRAL (VALVE) INSUFFICIENCY Status: Acute (3) Acute kidney failure Status: Resolved (4) Atrial fibrillation with RVR Code(s): I48.91 - UNSPECIFIED ATRIAL FIBRILLATION Status: Acute (5) Community acquired bacterial pneumonia Code(s): J15.9 - UNSPECIFIED BACTERIAL PNEUMONIA Status: Acute (6) Lactic acidosis Code(s): E87.2 - ACIDOSIS Status: Resolved (7) Sepsis with acute organ dysfunction Code(s): A41.9 - SEPSIS, UNSPECIFIED ORGANISM; R65.20 - SEVERE SEPSIS WITHOUT SEPTIC SHOCK Status: Acute (8) Transaminitis Code(s): R74.0 - NONSPEC ELEV OF LEVELS OF TRANSAMNS & LACTIC ACID DEHYDRGNSE Status: Acute (9) Chronic anticoagulation Code(s): Z79.01 - INFORMATION TECHNOLOGY ADMINISTRATOR (CURRENT) USE OF ANTICOAGULANTS Status: Chronic (10) GERD (gastroesophageal reflux disease) Code(s): K21.9 - GASTRO-ESOPHAGEAL REFLUX DISEASE WITHOUT ESOPHAGITIS Status: Chronic (11) Hypertension Code(s): I10 - ESSENTIAL (PRIMARY) HYPERTENSION Status: Chronic - Plan cont current plan of care * pt has finished antibiotics * amiodaron as per EP * medication reviewed as below * symptomatic treatment * life vest arrangement * possible discharge today. Review of Systems - Review of Systems ENT: negative: Ear Pain, Ear Discharge, Nose Pain, Nose Discharge, Nose Congestion, Mouth Pain, Mouth Swelling, Throat Pain, Throat Swelling, Other Respiratory: negative: Cough, Dry, Shortness of Breath, Hemoptysis, SOB with Excertion, Pleuritic Pain, Sputum, Wheezing Cardiovascular: negative: chest pain, palpitations, orthopnea, paroxysmal nocturnal dyspnea, edema, light headedness, other Gastrointestinal: negative: Nausea, Vomiting, Abdominal Pain, Diarrhea, Constipation, Melena, Hematochezia, Other Genitourinary: negative: Dysuria, Frequency, Incontinence, Hematuria, Retention , Other Musculoskeletal: negative: Neck Pain, Shoulder Pain, Arm Pain, Back Pain, Hand Pain, Leg Pain, Foot Pain, Other Skin: negative: Rash, Lesions, Jose, Bruising, Other - Medications/Allergies Allergies/Adverse Reactions: Allergies Allergy/AdvReac Type Severity Reaction Status Date / Time Penicillins Allergy Verified 12/17/16 14:44 Medications: Current Medications Acetaminophen (Tylenol) 650 mg PO Q4H PRN PRN Reason: Headache/Fever/Mild Pain (1-3) Last Admin: 08/22/18 03:20 Dose: 650 mg Hydrocodone Bitart/Acetaminophen ([place] 5/325) 1 tab PO Q4H PRN PRN Reason: Moderate Pain (4-6) Last Admin: 08/16/18 21:37 Dose: 1 tab Albuterol/Ipratropium (Duoneb) 3 ml NEB [id number] PRN PRN Reason: SOB &/or Wheezing Amiodarone HCl (Cordarone) 400 mg PO TID [facility] Last Admin: 08/22/18 08:14 Dose: 400 mg Artificial Tears (Tears Naturale) 2 drop EA EYE PRN PRN PRN Reason: Dry Eyes Bisacodyl (Dulcolax) 10 mg PO DAILYPRN PRN PRN Reason: Constipation Bisacodyl (Dulcolax) [address] DAILYPRN PRN PRN Reason: Constipation Calcium Carbonate (Tums) 1,000 mg PO Q4H PRN PRN Reason: Heartburn or Indigestion Diltiazem HCl (Cardizem) 90 mg PO Q6HR [facility] Last Admin: 08/22/18 05:05 Dose: 90 mg Doxycycline Hyclate (Vibramycin) 100 mg PO BID [facility] Last Admin: 08/22/18 08:15 Dose: 100 mg Estradiol (Estrace) 0.5 mg PO DAILY [facility] Last Admin: 08/22/18 08:23 Dose: 0.5 mg Guaifenesin (Robitussin Sf) 200 mg PO Q4H PRN PRN Reason: Cough Guaifenesin (Mucinex) 600 mg PO Q12HR [facility] Last Admin: 08/22/18 08:15 Dose: 600 mg Hydralazine HCl (Apresoline) 10 mg SLOW IVP Q4H PRN PRN Reason: SBP > 180 and HR < 70 Lisinopril (Zestril) 2.5 mg PO DAILY [facility] Last Admin: 08/22/18 08:15 Dose: 2.5 mg Loperamide HCl (Imodium) 2 mg PO PRN PRN PRN Reason: Diarrhea/Loose Stools Loratadine (Claritin) 10 mg PO DAILYPRN PRN PRN Reason: Sinus Symptoms Metoclopramide HCl (Reglan) 5 mg PO Q6H PRN PRN Reason: Nausea Metoprolol Tartrate (Lopressor) 25 mg PO BID [facility] Last Admin: 08/22/18 08:17 Dose: 25 mg Mineral Oil/White Petrolatum (Eucerin Cream) 0 gm TOP BIDPRN PRN PRN Reason: Dry Skin Pantoprazole Sodium (Protonix) 40 mg PO DAILY [facility] Last Admin: 08/22/18 08:15 Dose: 40 mg Rivaroxaban (Xarelto) 20 mg PO QPM-WM [facility] Last Admin: 08/21/18 17:06 Dose: 20 mg Senna/Docusate Sodium (Senokot S) 2 tab PO BID PRN PRN Reason: Constipation Sodium Chloride ([place] Nasal [place] 0.65%) 0 ml EA NARE QIDPRN PRN PRN Reason: Nasal Congestion Sodium Chloride (Flush - Normal Saline) 10 ml IVF Q12HR [facility] Last Admin: 08/22/18 08:18 Dose: 10 ml Sodium Chloride (Flush - Normal Saline) 10 ml IVF PRN PRN PRN Reason: Saline Flush Last Admin: 08/21/18 14:38 Dose: 10 ml Throat Lozenges (Cepastat Lozenges) 1 maribeth PO Q2H PRN PRN Reason: Sore Throat Zolpidem Tartrate (Ambien) 5 mg PO HSPRN PRN PRN Reason: Insomnia Last Admin: 08/21/18 21:22 Dose: 5 mg
[2018-08-22 11:39] VITALS: BP 114/74; TEMP 98.2
--- NOTE | 2018-08-22 11:39 | EKG ---
Test Reason : Blood Pressure : / mmHG Vent. Rate : 146 BPM Atrial Rate : 153 BPM P-R Int : 000 ms QRS Dur : 086 ms QT Int : 320 ms P-R-T Axes : 000 -13 198 degrees QTc Int : 498 ms Atrial fibrillation with rapid ventricular response Nonspecific ST and T wave abnormality Abnormal ECG Confirmed by SPARKLE MAGAÑA ([id number]), purchase request editor WILLIAM RAMIREZ ([id number]) on 08/22/2018 11:39:21 AM Referred By: Confirmed By:SPARKLE MAGAÑA
[2018-08-22] MEDS ORDERED: Amiodarone 200 MG TAB PO SCH (21:00)
--- NOTE | 2018-08-23 12:50 | DIS ---
DATE OF ADMISSION: 08/14/2018 DATE OF DISCHARGE: 08/22/2018 ADDENDUM: Please see my discharge summary on August 20, 2018. After that discharge summary, the patient underwent echocardiography transesophageal, which showed EF of 30% to 35%, moderate mitral regurgitation. The patient had unsuccessful cardioversion, she remain in atrial fibrillation and that is why Cardiology recommended electrophysiology consultation. The patient was evaluated by Dr. Moses, and he recommended that digoxin which she was taking as well as flecainide, which she received a couple of doses since then that was discontinued and he recommended to load with amiodarone. The patient was loaded with p.o. amiodarone while in hospital and tapering doses of amiodarone was prescribed. Toprol-XL was added for her cardiomyopathy. LifeVest is going to be arranged before discharge. She was getting lisinopril while in hospital but on discharge, we changed to her home dose of Benicar for her blood pressure. The patient has finished complete course of antibiotic therapy for her pneumonia. While in hospital, she did not require any antibiotic therapy. Overall, the patient is medically stable for discharge if Cardiology clears her today. The patient is seen and examined at bedside today. Please see my progress note from today for further detail. Toprol xl was discontinued by cardiology and pt was converted to nsr Job ID: [id number] MTDD
== END 2018-08-22 17:03 | disposition home or self-care (01) | DRG 871 ==
LOC: ERS 11:54 → ERHOLD 14:52 → 2NO 18:57
PROVIDERS: ADMIT Internal Medicine; ATTEND Internal Medicine
DX: A41.9 Sepsis, unspecified organism (principal); J15.9 Unspecified bacterial pneumonia; I50.21 Acute systolic (congestive) heart failure; N17.9 Acute kidney failure, unspecified; E87.2 Acidosis; I48.1 Persistent atrial fibrillation; I48.91 Unspecified atrial fibrillation; K21.9 Gastro-esophageal reflux disease without esophagitis; I11.0 Hypertensive heart disease with heart failure; I34.0 Nonrheumatic mitral (valve) insufficiency; R74.0 Nonspecific elevation of levels of transaminase and lactic acid dehydrogenase [LDH]
CPT/HCPCS: 36415; 71045; 71046; 74019; 80048; 80053; 80162; 80202; 81003; 81015; 82565; 83605; 83880; 84439; 84443; 84481; 84484; 85014; 85018; 85025; 85049; 85610; 85730; 87040; 92960; 93005; 93010; 93306; 93312; 96361; 96365; 96367; 96372; 96375; J0696; J1160; J1956; J2405; J2704; J2765; J3370; J7050

== ENCOUNTER 2019-07-05 17:27 | Outpatient (CLI) | payer MEDICARE, OTHER ==
--- NOTE | 2019-07-05 17:52 | RAD ---
Exam:3 views left HISTORY: Pain COMPARISON: None FINDINGS: Degenerative changes of the midfoot. Degenerative changes in the talonavicular joint space. Prominent spur of the calcaneus at the plantar aponeurosis Lisfranc alignment is maintained No fracture, cortical irregularity or periosteal reaction. IMPRESSION: Chronic changes as above.
== END 2019-07-05 17:28 | disposition home or self-care (01) ==
LOC: SCSRAD 17:27
PROVIDERS: ATTEND Family Medicine
DX: M79.672 Pain in left foot (principal)

== ENCOUNTER 2019-11-25 11:24 | Outpatient (CLI) | payer MEDICARE, OTHER | END 2019-11-25 11:25 | disposition home or self-care (01) | LOC: CTENTCT 11:24 | PROVIDERS: ATTEND Otolaryngology Plastic Surgery within the Head & Neck | DX: J32.9 Chronic sinusitis, unspecified (principal) | CPT/HCPCS: 70486 ==

== ENCOUNTER 2020-02-15 12:20 | Inpatient (IN) | payer MEDICARE, OTHER ==
[2020-02-15] MEDS ORDERED: Diltiazem 125 MG/25 ML ONE (12:33)
--- NOTE | 2020-02-15 12:58 | RAD ---
EXAM: Single view of the chest HISTORY: Cough COMPARISON: 08/14/2018 FINDINGS: Single view of the chest shows a normal sized cardiomediastinal silhouette. There is opacit y in the right lung base which likely represents an infiltrate. The bones are unremarkable. IMPRESSION: Right lower lobe infiltrate
[2020-02-15 13:09] LABS: Hemoglobin 12.4 g/dL (12.0-16.0); Mean Corpuscular HGB CONC 33.9 g/dL (32.0-36.0); Mean Corpuscular Hemoglobin 33.9 pg (27.0-31.0); Mean Platelet Volume 7.7 fL (7.4-10.4); Platelet Count 234 thou/uL (130-400); RBC Distribution Width 11.5 % (11.5-14.5); Red Blood Cell (RBC) Count 3.67 mill/uL (4.20-5.40); White Blood Cell (WBC) Count 15.6 thou/uL (4.8-10.8)
[2020-02-15 13:28] LABS: Band 8 % (5-11); Lymphocytes 11 % (21-51); MDiff Complete? YES; Monocytes 7 % (0-10); Neutrophil 73 % (42-75); Platelet Morphology Comment Appears Adequate; RBC Morphology Normal; Reactive Lymphocytes 1 % (0-10)
[2020-02-15 13:31] LABS: ALT (SGPT) 17 U/L (8-55); AST (SGOT) 19 U/L (5-34); Albumin 3.7 g/dL (3.4-4.8); Alkaline Phosphatase 57 U/L (40-110); Anion Gap 14 mmol/L (10-20); BUN (Urea Nitrogen) 24 mg/dL (9.8-20.1); Bilirubin, Total 0.6 mg/dL (0.2-1.2); CK (CPK) 32 U/L (29-168); Calc. Creatinine Clearance 0 mL/min (70-130); Calcium 9.1 mg/dL (7.8-10.44); Carbon Dioxide 25 mmol/L (23-31); Chloride 103 mmol/L (98-107); Estimated GFR-MDRD 54; Glucose 122 mg/dL (80-115); Magnesium 1.4 mg/dL (1.6-2.6); Potassium 3.9 mmol/L (3.5-5.1); Protein, Total 6.7 g/dL (6.0-8.3); Sodium 138 mmol/L (136-145)
[2020-02-15] MEDS ORDERED: Magnesium 2 GM/50 ML BAG (IN WATER) ONE (13:38)
[2020-02-15] MEDS ORDERED: Azithromycin 500 MG VIAL ONE (14:22)
[2020-02-15] MEDS ORDERED: Cefepime 2 GM VIAL ONE (14:22)
[2020-02-15] MEDS ORDERED: Morphine 2 MG/ML SYRINGE ONE (14:24)
[2020-02-15] MEDS ORDERED: Diltiazem 125 MG in Sodium Chloride 0.9% 100 ML IVPB SCH (16:15)
[2020-02-15] MEDS ORDERED: Ondansetron PF 4 MG/2 ML Vial ONE (16:42)
[2020-02-15 16:51] LABS: Troponin I Less than 0.010 ng/mL (< 0.028)
[2020-02-15] MEDS ORDERED: Rivaroxaban 10 MG TAB PO SCH (17:45)
[2020-02-15 20:01] LABS: Troponin I 0.022 ng/mL (< 0.028)
[2020-02-15 20:45] VITALS: BMI 27.8
--- NOTE | 2020-02-15 21:37 | HP ---
PRIMARY CARE PHYSICIAN: Ricardo Hannah MD CHIEF COMPLAINT: Cough that will not go away. HISTORY OF PRESENT ILLNESS: The patient is a pleasant 69-year-old female with past medical history significant for atrial fibrillation, pneumonia which she was hospitalized 9 days for and hypertension. She presents to the ER today for an ongoing cough that she has had since October. She states that when this cough came, it started out as a sinus infection which eventually cleared. She saw Dr. Hannah for it, but when the cough stayed, she was sent to ENT. They did a sinus surgery and the cough still persisted, so she was consulted to Pulmonary with Dr. Jovel. She visited with him for the first time last week, where he did a chest x-ray, that was clear and showed no infiltrates. He started her on a steroid, which she has been on for the past week. Last night she states the cough would not stop and prevented her from sleeping. She felt that her heart rate was rising with it. She spoke with her data security administrator's nurse today and she told her to come in to be seen. She has been persistently fatigued. No fever. No known sick contacts. She also complains of some left-sided flank pain and states the last time that she was hospitalized, that this happened also. States that Jai Shelley had been helping her for her cough and she did not feel that the steroid that she was prescribed last week did not change how she felt. Today in the ER, they completed a COVID swab, chest x-ray, and lab work. PAST MEDICAL HISTORY: Pneumonia, hypertension, atrial fibrillation. PAST SURGICAL HISTORY: Right hip replacement, hysterectomy, 2 bladder repairs, cataract surgery. ALLERGIES: PENICILLIN, WHICH CAUSED A RASH AND VOMITING, AND PLAQUENIL. MEDICATIONS: 1. Losartan. 2. Xarelto. 3. Atenolol. 4. Multaq. SOCIAL HISTORY: The patient is retired and lives at home with her . She drinks wine nightly, was a tobacco smoker 45 years ago for a short period of time. Denies any illicit drug use. FAMILY HISTORY: No significant family history. REVIEW OF SYSTEMS: All other review of systems are negative unless noted in the HPI. PHYSICAL EXAMINATION: VITAL SIGNS: Temp 99.8, pulse 121, respiratory rate 18, O2 saturation 96% on 2 L, blood pressure 131/60. GENERAL: Appears nontoxic, very friendly, but appears fatigued. HEENT: Head, atraumatic, normocephalic. Eyes, PERRLA. Extraocular muscles are intact. NECK: Trachea midline. No lymphadenopathy. RESPIRATORY: Wheezes in upper lobes. Bilateral diminished rales. CARDIAC: Tachycardic, irregular rate and rhythm. ABDOMEN: No abdominal distention. Normal bowel sounds. No guarding. No rigidity. BACK: No CVA tenderness. LOWER EXTREMITIES: No edema, no cyanosis, no clubbing. PSYCH: Normal affect. Normal behavior. LABORATORY DATA: EKG showed atrial fibrillation with RVR, 149 beats per minute. No ectopic beats. Chest x-ray showed a right lower lobe infiltrate and when compared to the one from last week, this is a new finding. White blood cells 15.6, red blood cells 3.67. Sodium 138, potassium 3.9, BUN 24, creatinine 1.02, GFR 54, glucose 122, lactic acid 1.3, magnesium 1.4, ferritin 92.01. First troponin 0.022, seconds was less than 0.010. CRP 11. COVID swab was negative. IMPRESSION AND PLAN: The patient states this atrial fibrillation happened last time she was hospitalized for pneumonia. She went into atrial fibrillation at an uncontrolled rate and that is when she was placed on her Multaq. She will continue on her Cardizem drip and it will be increased due to her still being in the 120s steadily after getting settled into her upstairs room. We will start her on IV antibiotics for her pneumonia and also collect a urinalysis for the left-sided flank pain that she is having to rule out UTI. May need to involve Cardiology if cardizem drip is unable to get her heart rate slowed down or converted to sinus. VTE prophylaxis covered with her Xarelto, GI prophylaxis with Pepcid. The patient wishes to be a full code. Her surrogate decision maker is her , Roc. The patient was discussed with Dr. Parker. Job ID: [id number] [facility] CENTERAbisai
[2020-02-15] MEDS: Famotidine 20 MG TAB PO SCH (22:04)
[2020-02-15] MEDS: traMADol HCl 50 MG TAB PO PRN (22:05)
[2020-02-15 22:56] LABS: Bacteria/HPF None Seen HPF (None Seen); Bilirubin Negative (Negative); Blood, Urine Negative (Negative); Clarity Clear (Clear); Glucose, Urine (Dipstick) Normal (Negative); Ketone, Urine 10 mg/dL (Negative); Leukocyte Negative Leu/uL (Negative); Mucous/LPF Rare LPF (<2+); Nitrite Negative (Negative); Protein, Urine (Dipstick) 20 mg/dL (Neg-Trace); RBC/HPF 0-3 HPF (0-3); Specific Gravity, Urine 1.021 (1.002-1.036); Squamous Epithelial 0-3 HPF (0-3); Urobilinogen Normal mg/dL (Less than 2); WBC/HPF 0-3 HPF (0-3); pH, Urine 5.5 (5.0-9.0)
[2020-02-15 22:58] LABS: Urine Culture Reflex No No
[2020-02-16] MEDS: cefTRIAXone\\ROCEPHIN 1 GM in Sodium Chloride 0.9% 100 ML IVPB SCH (01:55)
[2020-02-16] MEDS: Acetaminophen 325 MG TAB PO PRN ×3 (01:56→15:22)
[2020-02-16] MEDS: traMADol HCl 50 MG TAB PO PRN ×2 (04:14→10:19)
[2020-02-16 04:48] LABS: Anion Gap 15 mmol/L (10-20); BUN (Urea Nitrogen) 16 mg/dL (9.8-20.1); Calc. Creatinine Clearance 80 mL/min (70-130); Calcium 8.2 mg/dL (7.8-10.44); Carbon Dioxide 21 mmol/L (23-31); Chloride 103 mmol/L (98-107); Estimated GFR-MDRD 67; Glucose 109 mg/dL (80-115); Potassium 3.8 mmol/L (3.5-5.1); Sodium 135 mmol/L (136-145)
[2020-02-16 05:02] LABS: Band 27 % (5-11); Hemoglobin 11.7 g/dL (12.0-16.0); Lymphocytes 13 % (21-51); MDiff Complete? YES; Mean Corpuscular HGB CONC 32.5 g/dL (32.0-36.0); Mean Corpuscular Hemoglobin 32.9 pg (27.0-31.0); Mean Platelet Volume 7.8 fL (7.4-10.4); Monocytes 10 % (0-10); Neutrophil 50 % (42-75); Platelet Count 232 thou/uL (130-400); Platelet Morphology Comment Appears Adequate; RBC Distribution Width 11.6 % (11.5-14.5); Red Blood Cell (RBC) Count 3.56 mill/uL (4.20-5.40); White Blood Cell (WBC) Count 19.6 thou/uL (4.8-10.8)
[2020-02-16] MEDS: Diltiazem 125 MG in Sodium Chloride 0.9% 100 ML IVPB SCH ×2 (06:19→20:21)
[2020-02-16] MEDS: Famotidine 20 MG TAB PO SCH ×2 (09:41→21:50)
[2020-02-16] MEDS ORDERED: Dronedarone HCl 400 MG TAB PO SCH (13:45)
[2020-02-16] MEDS ORDERED: Atenolol 25 MG TAB PO SCH (13:45)
[2020-02-16] MEDS: Azithromycin 500 MG in Sodium Chloride 0.9% 250 ML 250 ML IVPB SCH (15:20)
[2020-02-16] MEDS: Benzonatate 100 MG CAP PO PRN ×2 (15:22→21:31)
[2020-02-16] MEDS: Rivaroxaban 10 MG TAB PO SCH (17:18)
[2020-02-16] MEDS: Ondansetron PF 4 MG/2 ML Vial IVP PRN (18:44)
--- NOTE | 2020-02-16 19:52 | PDOC.HOSPP ---
- Subjective Encounter Date: 02/16/20 Encounter Time: 16:00 Subjective: pt up in bed no complains - Objective Vital Signs & Weight: Vital Signs (12 hours) Temp Pulse Resp BP Pulse Ox 02/16/20 19:30 98.5 F 77 16 115/56 L 94 L 02/16/20 15:12 99.6 F 91 18 116/56 L 93 L 02/16/20 13:58 95 02/16/20 11:18 99.0 F 95 16 121/58 L 100 Weight Weight 180 lb I&O: 02/15/20 02/16/20 02/17/20 06:59 06:59 06:59 Intake Total 420 1080 Output Total 1100 Balance 420 -20 Result Diagrams: 02/16/20 03:33 02/16/20 03:33 Hospitalist ROS - Review of Systems Cardiovascular: denies: chest pain, palpitations, orthopnea, paroxysmal noc. dyspnea, edema, light headedness, other Gastrointestinal: denies: nausea, vomiting, abdominal pain, diarrhea, constipation, melena, hematochezia, other Genitourinary: denies: dysuria, frequency, incontinence, hematuria, retention, other - Medication Medications: Active Medications Generic Name Dose Route Start Last Admin Trade Name Freq PRN Reason Stop Dose Admin Acetaminophen 650 mg 02/15/20 19:47 02/16/20 15:22 Tylenol PO 650 mg Q4H PRN Administration Headache/Fever/Mild Pain (1-3) Benzonatate 100 mg 02/15/20 20:56 02/16/20 15:22 Tessalon PO 100 mg Q4H PRN Administration Cough Famotidine 20 mg 02/15/20 21:00 02/16/20 09:41 Pepcid PO 20 mg BID CELE Administration Azithromycin 500 mg/ Sodium 250 mls @ 250 mls/hr 02/16/20 14:00 02/16/20 15: 20 Chloride IVPB 250 mls 1400 CELE Administration Ceftriaxone Sodium 1 gm/ 100 mls @ 200 mls/hr 02/16/20 02:00 02/16/20 01:55 Sodium Chloride IVPB 100 mls 0200 CELE Administration Diltiazem HCl 125 mg/ Sodium 125 mls @ 10 mls/hr 02/15/20 20:49 02/16/20 06: 19 Chloride IVPB 125 mls INF CELE Administration 10 MG/HR Ondansetron HCl 4 mg 02/16/20 18:38 02/16/20 18:44 Zofran IVP 4 mg Q6H PRN Administration Nausea/Vomiting Rivaroxaban 20 mg 02/16/20 17:00 02/16/20 17:18 Xarelto PO 20 mg QPM-WM CELE Administration Tramadol HCl 50 mg 02/15/20 21:06 02/16/20 10:19 Ultram PO 50 mg Q6H PRN Administration Moderate Pain (4-6) - Exam ENT - other findings: sounds congested Neck: negative: supple, symmetric, no JVD, no thyromegaly, no lymphadenopathy, no carotid bruit, JVD Heart: negative: RRR, no murmur, no gallops, no rubs, normal peripheral pulses, irregular, diminshed peripheral pulses, murmur present, II/IV, III/IV Respiratory: negative: CTAB, no wheezes, no rales, no ronchi, normal chest expansion, no tachypnea, normal percussion, rales, rhonchi, tachypneic, wheezes Hosp A/P (1) Atrial fibrillation with RVR Code(s): I48.91 - UNSPECIFIED ATRIAL FIBRILLATION Status: Acute (2) Community acquired bacterial pneumonia Code(s): J15.9 - UNSPECIFIED BACTERIAL PNEUMONIA Status: Acute (3) Chronic anticoagulation Code(s): Z79.01 - CARDIOLOGY PHYSICIAN (CURRENT) USE OF ANTICOAGULANTS Status: Chronic (4) GERD (gastroesophageal reflux disease) Code(s): K21.9 - GASTRO-ESOPHAGEAL REFLUX DISEASE WITHOUT ESOPHAGITIS Status: Chronic (5) Hypertension Code(s): I10 - ESSENTIAL (PRIMARY) HYPERTENSION Status: Chronic - Plan will continue iv abx. pt continues to have cough which has been going on since october. she has been to pulmonary. will start her on some flonase and zyrtec to see if this helps. will resume home meds. if she continues to be tachycardia will consult cardio.
[2020-02-16] MEDS ORDERED: Fluticasone Propionate Nasal Spray 16 gm Bottle NASAL SCH (20:00)
[2020-02-16] MEDS ORDERED: Loratadine 10 MG TAB PO SCH (20:00)
[2020-02-17] MEDS: traMADol HCl 50 MG TAB PO PRN ×3 (00:10→20:40)
[2020-02-17] MEDS: Acetaminophen 325 MG TAB PO PRN ×2 (00:14→11:54)
[2020-02-17] MEDS: cefTRIAXone\\ROCEPHIN 1 GM in Sodium Chloride 0.9% 100 ML IVPB SCH (01:06)
[2020-02-17 04:48] LABS: Anion Gap 13 mmol/L (10-20); BUN (Urea Nitrogen) 15 mg/dL (9.8-20.1); Calc. Creatinine Clearance 80 mL/min (70-130); Calcium 8.2 mg/dL (7.8-10.44); Carbon Dioxide 24 mmol/L (23-31); Chloride 101 mmol/L (98-107); Estimated GFR-MDRD 67; Glucose 103 mg/dL (80-115); Sodium 134 mmol/L (136-145)
[2020-02-17 05:06] LABS: Band 5 % (5-11); Hemoglobin 11.3 g/dL (12.0-16.0); Hypochromia SLIGHT = 6-15 cells (100X) (0-5/hpf); Lymphocytes 5 % (21-51); MDiff Complete? YES; Macrocytosis SLIGHT = 6-15 cells (100X) (0-5/hpf); Mean Corpuscular HGB CONC 32.2 g/dL (32.0-36.0); Mean Corpuscular Hemoglobin 32.9 pg (27.0-31.0); Monocytes 14 % (0-10); Neutrophil 76 % (42-75); Platelet Count 217 thou/uL (130-400); Platelet Morphology Comment Appears Adequate; RBC Distribution Width 11.6 % (11.5-14.5); Red Blood Cell (RBC) Count 3.43 mill/uL (4.20-5.40); White Blood Cell (WBC) Count 23.5 thou/uL (4.8-10.8)
[2020-02-17] MEDS: Diltiazem 125 MG in Sodium Chloride 0.9% 100 ML IVPB SCH (07:44)
[2020-02-17] MEDS ORDERED: Dronedarone HCl 400 MG TAB PO SCH (08:00)
--- NOTE | 2020-02-17 09:06 | CT ---
CT PULMONARY ANGIOGRAM WITH IV CONTRAST AND 3D POST PROCESSING: HISTORY: Pneumonia and cough. The patient was negative for COVID. Tachycardia, persistent leukocytosis. FINDINGS: There is good contrast opacification of the pulmonary arterial vasculature without filling defects to suggest pulmonary embolism. The thoracic aorta is well opacified without aneurysm or dissection. N o pericardial effusion is seen. There are small bilateral pleural effusions, right larger than left, with consolidative changes in the right middle lobe, lingula, and the right lower lobe. The consoli dative changes are most prominent in the right lower lobe. There are small lung nodules in the left upper lobe measuring up to 6 mm. There are degenerative changes in the spine. IMPRESSION: 1. No CT evidence of pulmonary embolism. 2. Findings are consistent with pneumonia. 3. Nodular densities in the left lung should be monitored with a followup CT scan in 6 months. CODE T
[2020-02-17] MEDS: Loratadine 10 MG TAB PO SCH ×2 (09:40→13:46)
[2020-02-17] MEDS: Atenolol 25 MG TAB PO SCH (09:41)
[2020-02-17] MEDS: Fluticasone Propionate Nasal Spray 16 gm Bottle NASAL SCH (09:42)
[2020-02-17] MEDS ORDERED: Iopamidol 370 76% 100 ML VIAL ONE (12:08)
[2020-02-17] MEDS ORDERED: Diltiazem 125 MG in Sodium Chloride 0.9% 100 ML IVPB SCH (13:30)
[2020-02-17] MEDS: Azithromycin 500 MG in Sodium Chloride 0.9% 250 ML 250 ML IVPB SCH (13:43)
[2020-02-17] MEDS: Ondansetron PF 4 MG/2 ML Vial IVP PRN ×2 (14:17→20:41)
--- NOTE | 2020-02-17 16:54 | CON ---
DATE OF CONSULTATION: 02/17/2020 REASON FOR CONSULTATION: Atrial fibrillation with RVR. PRIMARY AUTO INSPECTION SPECIALIST: Ravinder Sherman MD HISTORY OF PRESENT ILLNESS: Ms. Almanza is a pleasant 69-year-old white female, who comes to the hospital for cough and shortness of breath. She has been dealing with her cough for the last few months. She has been seen by Pulmonary for this and eventually started to develop worsening shortness of breath, called our office and she was advised to go to the ER. She was admitted. CT of the chest showed that she had developed pneumonia and she was back in atrial fibrillation with RVR. She did have a history of atrial fibrillation in the past, had to be cardioverted and placed on Multaq and she has been on Xarelto for some time now. The last time she was in atrial fibrillation was in the same setting of having pneumonia as well. Currently, she was started on a diltiazem drip and it is rate controlled now. She is feeling a lot better from the atrial fibrillation point of view. She tells me she has not missed a dose of Xarelto. PAST MEDICAL HISTORY: 1. Paroxymal atrial fibrillation. 2. [id number] MR, more recently severe MR. 3. Dilated cardiomyopathy with most recent EF at 30% to 35%. 4. History of pneumonia in the past. 5. Kidney disease. OUTPATIENT MEDICATIONS: 1. Atenolol 12.5 mg b.i.d. 2. Xarelto 20 mg a day. 3. Pantoprazole. 4. Benicar 10 mg a day. 5. Estradiol. 6. Multaq 400 mg b.i.d. 7. Benzonatate 200 mg p.o. t.i.d. ALLERGIES: 1. HYDROXYCHLOROQUINE. 2. PENICILLIN. SOCIAL HISTORY: Drinks wine every night. Smoked for a short period time, but quit about 45 years ago. No drug use. FAMILY HISTORY: Noncontributory. REVIEW OF SYSTEMS: A 12-point review of systems was done and negative unless stated in history of present illness. PHYSICAL EXAMINATION: VITAL SIGNS: Temperature 97.4, pulse 71, respiratory rate 18, sat 94% on 2 L nasal cannula, and blood pressure 101/63. GENERAL: Awake, alert, and oriented x3. No distress. HEENT: Normocephalic and atraumatic. NECK: Supple. LUNGS: Have coarse breath sounds. CARDIOVASCULAR: S1 and S2. Irregularly irregular heart rate in the 80s. ABDOMEN: Soft. Positive bowel sounds. EXTREMITIES: 1+ edema. SKIN: Warm and dry. LABORATORY DATA: Laboratory work was reviewed. White count of 23.5, hemoglobin of 11, hematocrit of 35, platelet count of 217. Chemistries with normal potassium, sodium of 134, BUN and creatinine are normal, GFR of 67. Troponin is negative x2. UA was unremarkable. COVID PCR was not detected. CT of the chest was reviewed. No pulmonary embolism. She does have what appears to be a pneumonia. ASSESSMENT: 1. Atrial fibrillation with rapid ventricular response. 2. Community-acquired pneumonia. 3. History of dilated cardiomyopathy, last ejection fraction at 30% to 35%. PLAN: 1. Given her history of cardiomyopathy, the best antiarrhythmic for her would be amiodarone. I would switch her Multaq to amiodarone and try to control her rate with IV amiodarone drip instead of Cardizem. Continue beta-natty as well. 2. Continue Xarelto. 3. Once her pneumonia is better treated and her cough is better, should be a candidate for a cardioversion, she would not need a HI as she has been on Xarelto consistently for at least 6 months now. Thank you for letting us to participate in the care of your patient. Dr. Sherman, her primary color card maker, will follow up in the morning. Job ID: [id number]
[2020-02-17] MEDS: Benzonatate 100 MG CAP PO PRN ×2 (17:27→21:28)
[2020-02-17] MEDS: Rivaroxaban 10 MG TAB PO SCH (17:27)
[2020-02-17] MEDS: Amiodarone 450 MG in Dextrose 5% in Water 250 ML IVPB SCH (18:23)
--- NOTE | 2020-02-17 18:24 | PDOC.HOSPP ---
- Subjective Encounter Date: 02/17/20 Encounter Time: 11:15 Subjective: pt up in bed states she feel a bit better today. - Objective Vital Signs & Weight: Vital Signs (12 hours) Temp Pulse Resp BP Pulse Ox 02/17/20 15:17 97.4 F L 71 18 101/63 94 L 02/17/20 11:46 97.4 F L 97 16 122/58 L 93 L 02/17/20 09:41 90 02/17/20 07:37 97.5 F L 90 20 108/61 92 L 02/17/20 07:35 92 L Weight Weight 180 lb I&O: 02/16/20 02/17/20 02/18/20 06:59 06:59 06:59 Intake Total 420 1440 Output Total 1450 Balance 420 -10 Result Diagrams: 02/17/20 04:09 02/17/20 04:10 Hospitalist ROS - Review of Systems Cardiovascular: denies: chest pain, palpitations, orthopnea, paroxysmal noc. dyspnea, edema, light headedness, other Gastrointestinal: denies: nausea, vomiting, abdominal pain, diarrhea, constipation, melena, hematochezia, other Genitourinary: denies: dysuria, frequency, incontinence, hematuria, retention, other - Medication Medications: Active Medications Generic Name Dose Route Start Last Admin Trade Name Freq PRN Reason Stop Dose Admin Acetaminophen 650 mg 02/15/20 19:47 02/17/20 11:54 Tylenol PO 650 mg Q4H PRN Administration Headache/Fever/Mild Pain (1-3) Atenolol 25 mg 02/17/20 09:00 02/17/20 09:41 Tenormin PO 25 mg DAILY CELE Administration Benzonatate 100 mg 02/15/20 20:56 02/17/20 17:27 Tessalon PO 100 mg Q4H PRN Administration Cough Fluticasone Propionate 0 gm 02/17/20 09:00 02/17/20 09:42 Flonase Nasal [place] NASAL 1 spray DAILY CELE Administration Azithromycin 500 mg/ Sodium 250 mls @ 250 mls/hr 02/16/20 14:00 02/17/20 13: 43 Chloride IVPB 250 mls 1400 CELE Administration Ceftriaxone Sodium 1 gm/ 100 mls @ 200 mls/hr 02/16/20 02:00 02/17/20 01:06 Sodium Chloride IVPB 100 mls 0200 CELE Administration Loratadine 10 mg 02/17/20 09:00 02/17/20 13:46 Claritin PO 10 mg DAILY CELE Administration Ondansetron HCl 4 mg 02/16/20 18:38 02/17/20 14:17 Zofran IVP 4 mg Q6H PRN Administration Nausea/Vomiting Pantoprazole Sodium 40 mg 02/17/20 09:00 02/17/20 09:40 Protonix PO 40 mg QAM CELE Administration Rivaroxaban 20 mg 02/16/20 17:00 02/17/20 17:27 Xarelto PO 20 mg QPM-WM CELE Administration Sodium Chloride 10 ml 02/17/20 09:00 02/17/20 09:42 Flush - Normal Saline IVF 10 ml Q12HR CELE Administration Tramadol HCl 50 mg 02/15/20 21:06 02/17/20 13:43 Ultram PO 50 mg Q6H PRN Administration Moderate Pain (4-6) - Exam Heart: negative: RRR, no murmur, no gallops, no rubs, normal peripheral pulses, irregular, diminshed peripheral pulses, murmur present, II/IV, III/IV Respiratory: negative: CTAB, no wheezes, no rales, no ronchi, normal chest expansion, no tachypnea, normal percussion, rales, rhonchi, tachypneic, wheezes Gastrointestinal: negative: soft, non-tender, non-distended, normal bowel sounds , no palpable masses, no hepatomegaly, no splenomegaly, no bruit, no guarding, no rigidity, tender to palpation, distended, diminished bowl sounds, voluntary guarding Hosp A/P (1) Atrial fibrillation with RVR Code(s): I48.91 - UNSPECIFIED ATRIAL FIBRILLATION Status: Acute (2) Community acquired bacterial pneumonia Code(s): J15.9 - UNSPECIFIED BACTERIAL PNEUMONIA Status: Acute (3) Chronic anticoagulation Code(s): Z79.01 - CORRECTION (CURRENT) USE OF ANTICOAGULANTS Status: Chronic (4) GERD (gastroesophageal reflux disease) Code(s): K21.9 - GASTRO-ESOPHAGEAL REFLUX DISEASE WITHOUT ESOPHAGITIS Status: Chronic (5) Hypertension Code(s): I10 - ESSENTIAL (PRIMARY) HYPERTENSION Status: Chronic - Plan will continue iv abx. pt continues to have cough which has been going on since october. she has been to pulmonary. will start her on some flonase and zyrtec to see if this helps. will resume home meds. if she continues to be tachycardia will consult cardio. 02/16 cta done pneumonia on right lower lung. will continue iv abx. she still has a elevated wbc. will consult cardiology since she continues to be tachycardiac. pt on AC.
[2020-02-18] MEDS: cefTRIAXone\\ROCEPHIN 1 GM in Sodium Chloride 0.9% 100 ML IVPB SCH (01:53)
[2020-02-18] MEDS: Ondansetron PF 4 MG/2 ML Vial IVP PRN ×2 (01:53→20:43)
[2020-02-18] MEDS: traMADol HCl 50 MG TAB PO PRN ×2 (01:54→20:42)
[2020-02-18] MEDS: Benzonatate 100 MG CAP PO PRN ×5 (01:54→18:35)
[2020-02-18] MEDS: Amiodarone 450 MG in Dextrose 5% in Water 250 ML IVPB SCH (03:11)
[2020-02-18 04:29] LABS: #Eosinphils 0.1 thou/uL (0.0-0.7); #Lymphocytes 1.6 thou/uL (1.20-3.40); #Monocytes 2.1 thou/uL (0.11-0.59); #Neutrophils 15.5 thou/uL (1.40-6.50); %Basophils 0.2 % (0.0-1.0); %Eosinophils 0.7 % (0.0-10.0); %Lymphocytes 8.1 % (21.0-51.0); Hemoglobin 10.6 g/dL (12.0-16.0); Mean Corpuscular HGB CONC 31.9 g/dL (32.0-36.0); Mean Corpuscular Hemoglobin 32.3 pg (27.0-31.0); Platelet Count 251 thou/uL (130-400); RBC Distribution Width 11.5 % (11.5-14.5); Red Blood Cell (RBC) Count 3.29 mill/uL (4.20-5.40); White Blood Cell (WBC) Count 19.4 thou/uL (4.8-10.8)
[2020-02-18 04:52] LABS: Anion Gap 12 mmol/L (10-20); BUN (Urea Nitrogen) 11 mg/dL (9.8-20.1); Calc. Creatinine Clearance 84 mL/min (70-130); Calcium 8.3 mg/dL (7.8-10.44); Carbon Dioxide 26 mmol/L (23-31); Chloride 99 mmol/L (98-107); Estimated GFR-MDRD 71; Glucose 122 mg/dL (80-115); Magnesium 1.7 mg/dL (1.6-2.6); Potassium 3.6 mmol/L (3.5-5.1); Sodium 133 mmol/L (136-145)
[2020-02-18 04:53] LABS: ALT (SGPT) 17 U/L (8-55); AST (SGOT) 19 U/L (5-34); Alkaline Phosphatase 104 U/L (40-110); Bilirubin, Direct 0.2 mg/dL (0.1-0.3); Bilirubin, Total 0.4 mg/dL (0.2-1.2); Protein, Total 6.1 g/dL (6.0-8.3)
[2020-02-18] MEDS: Acetaminophen 325 MG TAB PO PRN ×4 (06:00→18:35)
[2020-02-18] MEDS: Atenolol 25 MG TAB PO SCH (06:40)
[2020-02-18] MEDS: Loratadine 10 MG TAB PO SCH (08:35)
[2020-02-18] MEDS: Fluticasone Propionate Nasal Spray 16 gm Bottle NASAL SCH (08:38)
--- NOTE | 2020-02-18 12:50 | PQF ---
CLINICAL DOCUMENTATION CLARIFICATION FORM: Dear Dr. Parker / Dr. Cornell Date: 02/18/2020 / 02/21/2020 Please exercise your independent, professional judgment in responding to the clarification form. Clinical indicators are provided on the bottom of this form for your review. Please check appropriate box(es) to clarify if the following diagnosis has been ruled in our ruled out: SEPSIS [ X ] Ruled in diagnosis [ X ] Continue to treat [ ] Resolved [ ] Ruled out diagnosis [ ] Cannot rule out diagnosis [ ] Other diagnosis [ ] Unable to determine In addition, please specify: Present on Admission (POA): [ ] Yes [ ] No [ ] Unable to determine For continuity of documentation, please document condition throughout progress notes and discharge summary. Thank You. CLINICAL INDICATORS - SIGNS / SYMPTOMS / LABS / RESULTS AND LOCATION IN EMR *LAB (EMR): WBC Bands Neutrophil % CRP Lactic Acid 02/14 15.6 8 11.0 1.3 02/15 19.6 27 02/16 23.5 5 02/17 19.4 80.0 *ED 02/14: * Vital Signs Pulse 94-158 RR 16 - 25 * Sepsis alert activated and blood cultures and lactate obtained, IV antibiotics were given. * Diagnosis Final Primary: Afib with RVR Additional: Community-acquired pneumonia, Sepsis *Vital Signs 02/16 (EMR): Temp 101.3 RISK FACTORS / RESULTS AND LOCATION IN EMR *ED 02/14: Community-acquired pneumonia TREATMENTS / RESULTS AND LOCATION IN EMR *ED 02/14: * NS 1L IV, NS 500ml IV, Azithromycin IV, Cefepime IV * Sepsis alert activated and blood cultures and lactate obtained, IV antibiotics were given. *Chest X-Ray 02/14 (EMR) *MAR (EMR): Azithromycin IV 02/15-, Ceftriaxone IV 02/15-02/17 Mabel Smith CDS/Filler And Trimmer Signature: Mabel Benavides RN, CDS Phone #: [phone] [email or web address] This is a permanent part of the Medical Record [facility]
--- NOTE | 2020-02-18 13:27 | PRG ---
DATE OF SERVICE: 02/18/2020 SUBJECTIVE: Ms. Almanza is currently stable. Her heart rate is in the 120s to 130s. She recently presented with pneumonia. OBJECTIVE: VITAL SIGNS: Heart rate 95, temperature 98.1, blood pressure 115/69. LUNGS: Clear to auscultation. HEART: Irregularly irregular. ABDOMEN: Soft, nontender, nondistended. EXTREMITIES: No edema. PERTINENT LABORATORY DATA: Hemoglobin 10.6, hematocrit 33.4. IMPRESSION: 1. Paroxysmal atrial fibrillation. 2. Pneumonia. RECOMMENDATIONS: 1. Ms. Almanza has had a previous history of cardiomyopathy. Her LVEF did improve and was placed on Multaq for maintaining sinus rhythm. She has since stopped her Multaq atrial fibrillation likely secondary to recent pneumonia. 2. Add p.o. Cardizem and discontinue IV amiodarone. Continue Multaq in addition to anticoagulation therapy. She states she has not missed a dose of Xarelto over the last several months. PLAN: If cardiovascularly stable next week, she is to discharge with outpatient cardioversion if continues to be in atrial fibrillation. Job ID: [id number]
[2020-02-18] MEDS: Azithromycin 500 MG in Sodium Chloride 0.9% 250 ML 250 ML IVPB SCH (15:28)
--- NOTE | 2020-02-18 16:12 | PDOC.HOSPP ---
- Subjective Encounter Date: 02/18/20 Encounter Time: 11:15 Subjective: pt up in bed no feels a lot better today. - Objective Vital Signs & Weight: Vital Signs (12 hours) Temp Pulse Resp BP BP BP Pulse Ox 02/18/20 12:32 98.1 F 95 115/69 96 02/18/20 08:40 96 02/18/20 08:34 97.5 F L 110 H 16 106/70 94 L 02/18/20 06:40 144 H 131/86 Weight Weight 180 lb I&O: 02/17/20 02/18/20 02/19/20 06:59 06:59 06:59 Intake Total 1440 1320 Output Total 1450 1400 Balance -80 Result Diagrams: 02/18/20 03:48 02/18/20 03:48 Hospitalist ROS - Review of Systems Cardiovascular: denies: chest pain, palpitations, orthopnea, paroxysmal noc. dyspnea, edema, light headedness, other Gastrointestinal: denies: nausea, vomiting, abdominal pain, diarrhea, constipation, melena, hematochezia, other Genitourinary: denies: dysuria, frequency, incontinence, hematuria, retention, other Musculoskeletal: denies: neck pain, shoulder pain, arm pain, back pain, hand pain, leg pain, foot pain, other - Medication Medications: Active Medications Generic Name Dose Route Start Last Admin Trade Name Freq PRN Reason Stop Dose Admin Acetaminophen 650 mg 02/15/20 19:47 02/18/20 14:49 Tylenol PO 650 mg Q4H PRN Administration Headache/Fever/Mild Pain (1-3) Atenolol 25 mg 02/17/20 09:00 02/18/20 06:40 Tenormin PO 25 mg DAILY CELE Administration Benzonatate 100 mg 02/15/20 20:56 02/18/20 14:49 Tessalon PO 100 mg Q4H PRN Administration Cough Diltiazem HCl 60 mg 02/18/20 07:00 02/18/20 08:35 Cardizem PO 60 mg Q8H CELE Administration Fluticasone Propionate 0 gm 02/17/20 09:00 02/18/20 08:38 Flonase Nasal [place] NASAL 1 spray DAILY CELE Administration Azithromycin 500 mg/ Sodium 250 mls @ 250 mls/hr 02/16/20 14:00 02/18/20 15: 28 Chloride IVPB 250 mls 1400 CELE Administration Ceftriaxone Sodium 1 gm/ 100 mls @ 200 mls/hr 02/16/20 02:00 02/18/20 01:53 Sodium Chloride IVPB 100 mls 0200 CELE Administration Amiodarone HCl 450 mg/ 259 mls @ 0 mls/hr 02/17/20 16:45 02/18/20 03:11 Dextrose/Water IVPB 259 mls INF CELE Administration Protocol Per Protocol Loratadine 10 mg 02/17/20 09:00 02/18/20 08:35 Claritin PO 10 mg DAILY CELE Administration Ondansetron HCl 4 mg 02/16/20 18:38 02/18/20 01:53 Zofran IVP 4 mg Q6H PRN Administration Nausea/Vomiting Pantoprazole Sodium 40 mg 02/17/20 09:00 02/18/20 08:35 Protonix PO 40 mg QAM CELE Administration Rivaroxaban 20 mg 02/16/20 17:00 02/17/20 17:27 Xarelto PO 20 mg QPM-WM CELE Administration Sodium Chloride 10 ml 02/17/20 09:00 02/18/20 08:39 Flush - Normal Saline IVF 10 ml Q12HR CELE Administration Tramadol HCl 50 mg 02/15/20 21:06 02/18/20 01:54 Ultram PO 50 mg Q6H PRN Administration Moderate Pain (4-6) - Exam Heart: negative: RRR, no murmur, no gallops, no rubs, normal peripheral pulses, irregular, diminshed peripheral pulses, murmur present, II/IV, III/IV Respiratory: rhonchi Respiratory - other findings: to right lower lung Gastrointestinal: negative: soft, non-tender, non-distended, normal bowel sounds , no palpable masses, no hepatomegaly, no splenomegaly, no bruit, no guarding, no rigidity, tender to palpation, distended, diminished bowl sounds, voluntary guarding Extremities: negative: no cyanosis, no clubbing, no edema, 1+ LE edema, 2+ LE edema, clubbing Hosp A/P (1) Atrial fibrillation with RVR Code(s): I48.91 - UNSPECIFIED ATRIAL FIBRILLATION Status: Acute (2) Community acquired bacterial pneumonia Code(s): J15.9 - UNSPECIFIED BACTERIAL PNEUMONIA Status: Acute (3) Chronic anticoagulation Code(s): Z79.01 - ELASTIC ASSEMBLER (CURRENT) USE OF ANTICOAGULANTS Status: Chronic (4) GERD (gastroesophageal reflux disease) Code(s): K21.9 - GASTRO-ESOPHAGEAL REFLUX DISEASE WITHOUT ESOPHAGITIS Status: Chronic (5) Hypertension Code(s): I10 - ESSENTIAL (PRIMARY) HYPERTENSION Status: Chronic - Plan will continue iv abx. pt continues to have cough which has been going on since october. she has been to pulmonary. will start her on some flonase and zyrtec to see if this helps. will resume home meds. if she continues to be tachycardia will consult cardio. 02/16 cta done pneumonia on right lower lung. will continue iv abx. she still has a elevated wbc. will consult cardiology since she continues to be tachycardiac. pt on AC. 02/17 pt states pt feels much better. pt will undergo HI on Friday. she has not had any fever in the past 24hr.
[2020-02-18] MEDS: Rivaroxaban 10 MG TAB PO SCH (16:20)
[2020-02-19] MEDS: Benzonatate 100 MG CAP PO PRN ×5 (00:18→22:10)
[2020-02-19] MEDS: cefTRIAXone\\ROCEPHIN 1 GM in Sodium Chloride 0.9% 100 ML IVPB SCH (02:30)
[2020-02-19] MEDS: Acetaminophen 325 MG TAB PO PRN ×5 (02:30→22:10)
[2020-02-19] MEDS: Diabetic Tussin 200 MG/10 ML UDCUP PO PRN ×3 (03:48→22:09)
[2020-02-19] MEDS ORDERED: Digoxin 0.5 MG/2 ML AMP SLOW IVP SCH ×2 (08:45→15:00)
[2020-02-19 08:57] LABS: Band 9 % (5-11); Eosinophils 1 % (0-10); Lymphocytes 13 % (21-51); MDiff Complete? YES; Mean Corpuscular HGB CONC 32.3 g/dL (32.0-36.0); Mean Corpuscular Hemoglobin 32.8 pg (27.0-31.0); Mean Platelet Volume 7.3 fL (7.4-10.4); Monocytes 6 % (0-10); Neutrophil 71 % (42-75); Platelet Count 283 thou/uL (130-400); RBC Distribution Width 11.4 % (11.5-14.5); Red Blood Cell (RBC) Count 3.36 mill/uL (4.20-5.40); White Blood Cell (WBC) Count 14.1 thou/uL (4.8-10.8)
[2020-02-19] MEDS: Fluticasone Propionate Nasal Spray 16 gm Bottle NASAL SCH (09:06)
[2020-02-19] MEDS: Atenolol 25 MG TAB PO SCH (09:07)
[2020-02-19] MEDS: Loratadine 10 MG TAB PO SCH (09:07)
[2020-02-19] MEDS: Amiodarone 450 MG in Dextrose 5% in Water 250 ML IVPB SCH (10:14)
--- NOTE | 2020-02-19 11:41 | PDOC.HOSPP ---
- Subjective Encounter Date: 02/19/20 Encounter Time: 10:30 Subjective: pt up in bed states she feels well today but had a rough night she could not sleep due to cough. - Objective Vital Signs & Weight: Vital Signs (12 hours) Temp Pulse Resp BP Pulse Ox 02/19/20 09:03 97.8 F 144 H 16 128/95 H 93 L 02/19/20 04:00 99.1 F 112 H 18 130/63 Weight Weight 180 lb I&O: 02/18/20 02/19/20 02/20/20 06:59 06:59 06:59 Intake Total 1320 1810 Output Total 1400 800 Balance -80 1010 Result Diagrams: 02/19/20 07:57 02/18/20 03:48 Hospitalist ROS - Review of Systems Respiratory: reports: cough Cardiovascular: denies: chest pain, palpitations, orthopnea, paroxysmal noc. dyspnea, edema, light headedness, other Gastrointestinal: denies: nausea, vomiting, abdominal pain, diarrhea, constipation, melena, hematochezia, other Genitourinary: denies: dysuria, frequency, incontinence, hematuria, retention, other - Medication Medications: Active Medications Generic Name Dose Route Start Last Admin Trade Name Freq PRN Reason Stop Dose Admin Acetaminophen 650 mg 02/15/20 19:47 02/19/20 09:06 Tylenol PO 650 mg Q4H PRN Administration Headache/Fever/Mild Pain (1-3) Atenolol 25 mg 02/17/20 09:00 02/19/20 09:07 Tenormin PO 25 mg DAILY CELE Administration Benzonatate 100 mg 02/15/20 20:56 02/19/20 09:06 Tessalon PO 100 mg Q4H PRN Administration Cough Diltiazem HCl 60 mg 02/18/20 07:00 02/19/20 09:07 Cardizem PO 60 mg Q8H CELE Administration Fluticasone Propionate 0 gm 02/17/20 09:00 02/19/20 09:06 Flonase Nasal [place] NASAL 1 spray DAILY CELE Administration Guaifenesin 200 mg 02/19/20 03:28 02/19/20 09:07 Robitussin Sf PO 200 mg Q4H PRN Administration Cough Azithromycin 500 mg/ Sodium 250 mls @ 250 mls/hr 02/16/20 14:00 02/18/20 15: 28 Chloride IVPB 250 mls 1400 CELE Administration Ceftriaxone Sodium 1 gm/ 100 mls @ 200 mls/hr 02/16/20 02:00 02/19/20 02:30 Sodium Chloride IVPB 100 mls 0200 CELE Administration Amiodarone HCl 450 mg/ 259 mls @ 0 mls/hr 02/17/20 16:45 02/19/20 10:14 Dextrose/Water IVPB 259 mls INF CELE Administration Protocol Per Protocol Loratadine 10 mg 02/17/20 09:00 02/19/20 09:07 Claritin PO 10 mg DAILY CELE Administration Ondansetron HCl 4 mg 02/16/20 18:38 02/18/20 20:43 Zofran IVP 4 mg Q6H PRN Administration Nausea/Vomiting Pantoprazole Sodium 40 mg 02/17/20 09:00 02/19/20 09:07 Protonix PO 40 mg QAM CELE Administration Rivaroxaban 20 mg 02/16/20 17:00 02/18/20 16:20 Xarelto PO 20 mg QPM-WM CELE Administration Sodium Chloride 10 ml 02/17/20 09:00 02/19/20 09:10 Flush - Normal Saline IVF 10 ml Q12HR CELE Administration Tramadol HCl 50 mg 02/15/20 21:06 02/18/20 20:42 Ultram PO 50 mg Q6H PRN Administration Moderate Pain (4-6) - Exam Neck: negative: supple, symmetric, no JVD, no thyromegaly, no lymphadenopathy, no carotid bruit, JVD Heart: negative: RRR, no murmur, no gallops, no rubs, normal peripheral pulses, irregular, diminshed peripheral pulses, murmur present, II/IV, III/IV Respiratory - other findings: decrease breath sounds to RLL Gastrointestinal: negative: soft, non-tender, non-distended, normal bowel sounds , no palpable masses, no hepatomegaly, no splenomegaly, no bruit, no guarding, no rigidity, tender to palpation, distended, diminished bowl sounds, voluntary guarding Hosp A/P (1) Atrial fibrillation with RVR Code(s): I48.91 - UNSPECIFIED ATRIAL FIBRILLATION Status: Acute (2) Community acquired bacterial pneumonia Code(s): J15.9 - UNSPECIFIED BACTERIAL PNEUMONIA Status: Acute (3) Chronic anticoagulation Code(s): Z79.01 - MCC (CURRENT) USE OF ANTICOAGULANTS Status: Chronic (4) GERD (gastroesophageal reflux disease) Code(s): K21.9 - GASTRO-ESOPHAGEAL REFLUX DISEASE WITHOUT ESOPHAGITIS Status: Chronic (5) Hypertension Code(s): I10 - ESSENTIAL (PRIMARY) HYPERTENSION Status: Chronic - Plan will continue iv abx. pt continues to have cough which has been going on since october. she has been to pulmonary. will start her on some flonase and zyrtec to see if this helps. will resume home meds. if she continues to be tachycardia will consult cardio. 02/16 cta done pneumonia on right lower lung. will continue iv abx. she still has a elevated wbc. will consult cardiology since she continues to be tachycardiac. pt on AC. 02/17 pt states pt feels much better. pt will undergo HI on Friday. she has not had any fever in the past 24hr. 02/18 pt continues to have tachycardia. Digoxin added per cardio. pt wbc improving. will give one dose of lasix pt complaining of abdomen bloating. pt to get HI on Friday. Her ef is 45-50%
[2020-02-19] MEDS ORDERED: Furosemide 20 MG/2 ML VIAL SLOW IVP SCH (11:45)
[2020-02-19] MEDS: guaiFENesin/Codeine Phosphate 200 mg/20 mg 10 ml UD Cup PO PRN ×2 (14:19→18:22)
[2020-02-19] MEDS: Azithromycin 500 MG in Sodium Chloride 0.9% 250 ML 250 ML IVPB SCH (14:53)
[2020-02-19] MEDS: Rivaroxaban 10 MG TAB PO SCH (16:59)
[2020-02-20] MEDS: cefTRIAXone\\ROCEPHIN 1 GM in Sodium Chloride 0.9% 100 ML IVPB SCH (01:17)
[2020-02-20] MEDS: Amiodarone 450 MG in Dextrose 5% in Water 250 ML IVPB SCH ×2 (01:17→16:22)
[2020-02-20] MEDS: Ondansetron PF 4 MG/2 ML Vial IVP PRN (01:18)
[2020-02-20] MEDS: traMADol HCl 50 MG TAB PO PRN (01:18)
[2020-02-20] MEDS: Diabetic Tussin 200 MG/10 ML UDCUP PO PRN ×4 (01:59→17:37)
[2020-02-20] MEDS: Benzonatate 100 MG CAP PO PRN ×5 (01:59→21:33)
[2020-02-20 04:45] LABS: #Eosinphils 0.3 thou/uL (0.0-0.7); #Lymphocytes 1.3 thou/uL (1.20-3.40); #Monocytes 1.7 thou/uL (0.11-0.59); #Neutrophils 10.1 thou/uL (1.40-6.50); %Basophils 0.2 % (0.0-1.0); %Eosinophils 1.9 % (0.0-10.0); %Lymphocytes 9.7 % (21.0-51.0); %Monocytes 12.5 % (0.0-10.0); %Neutrophils 75.7 % (42.0-75.0); Mean Corpuscular HGB CONC 31.7 g/dL (32.0-36.0); Mean Corpuscular Hemoglobin 32.2 pg (27.0-31.0); Mean Platelet Volume 7.1 fL (7.4-10.4); Platelet Count 275 thou/uL (130-400); RBC Distribution Width 11.3 % (11.5-14.5); Red Blood Cell (RBC) Count 3.41 mill/uL (4.20-5.40); White Blood Cell (WBC) Count 13.4 thou/uL (4.8-10.8)
[2020-02-20 05:01] LABS: Anion Gap 9 mmol/L (10-20); BUN (Urea Nitrogen) 9 mg/dL (9.8-20.1); Calc. Creatinine Clearance 87 mL/min (70-130); Calcium 8.6 mg/dL (7.8-10.44); Carbon Dioxide 31 mmol/L (23-31); Chloride 101 mmol/L (98-107); Estimated GFR-MDRD 73; Glucose 113 mg/dL (80-115); Magnesium 1.6 mg/dL (1.6-2.6); Potassium 3.3 mmol/L (3.5-5.1); Sodium 138 mmol/L (136-145)
[2020-02-20] MEDS: Loratadine 10 MG TAB PO SCH (07:59)
[2020-02-20] MEDS: Atenolol 25 MG TAB PO SCH (07:59)
[2020-02-20] MEDS: Acetaminophen 325 MG TAB PO PRN ×4 (07:59→21:33)
[2020-02-20] MEDS: Fluticasone Propionate Nasal Spray 16 gm Bottle NASAL SCH (07:59)
[2020-02-20] MEDS ORDERED: Potassium Chloride 20 MEQ TAB PO SCH (08:45)
[2020-02-20] MEDS ORDERED: Magnesium Oxide 400 MG TAB PO SCH (08:45)
[2020-02-20] MEDS: Azithromycin 500 MG in Sodium Chloride 0.9% 250 ML 250 ML IVPB SCH (14:44)
--- NOTE | 2020-02-20 14:50 | ULT ---
VENOUS DOPPLER ULTRASOUND RIGHT UPPER EXTREMITY: History: Swelling of the right arm near the antecubital fossa. FINDINGS: There is intraluminal thrombus in the cephalic vein at the antecubital fossa. The remainder of the in terrogated veins in the right upper extremity demonstrate normal flow and spectral waveforms without thrombosis including the internal jugular, subclavian, axillary, brachial, radial, ulnar and basilic veins. IMPRESSION: 1. No evidence of DVT in the right upper extremity. 2. Cephalic vein thrombosis at the right antecubital fossa. POS: WAQASA
[2020-02-20] MEDS: Rivaroxaban 10 MG TAB PO SCH (17:37)
--- NOTE | 2020-02-20 18:11 | PDOC.HOSPP ---
- Subjective Encounter Date: 02/20/20 Encounter Time: 10:00 Subjective: The patient is doing much better. Does not feel much palpitations. No chest pain or SOB .She is still on amiodarone drip and continues to be mildly tachycardic Complains of right arm swelling where her IV infiltrated. She states she is supposed to get possible cardioversion tomorrow The patient states that she has had a cough since October. Saw Dr Jovel and had a chest Xray that was normal and three days later patient was in hospital with pneumonia - Objective Vital Signs & Weight: Vital Signs (12 hours) Temp Pulse Resp BP BP Pulse Ox 02/20/20 15:47 98.2 F 93 16 119/69 97 02/20/20 11:33 97.6 F 102 H 18 113/59 L 95 02/20/20 07:44 97.8 F 127 H 18 136/69 97 Weight Weight 180 lb I&O: 02/19/20 02/20/20 02/21/20 06:59 06:59 06:59 Intake Total 1810 2410 1080 Output Total 800 1450 Balance 1010 2410 -370 Result Diagrams: 02/20/20 04:20 02/20/20 04:20 Hospitalist ROS - Review of Systems Constitutional: denies: fever, chills - Medication Medications: Active Medications Generic Name Dose Route Start Last Admin Trade Name Freq PRN Reason Stop Dose Admin Acetaminophen 650 mg 02/15/20 19:47 02/20/20 17:37 Tylenol PO 650 mg Q4H PRN Administration Headache/Fever/Mild Pain (1-3) Atenolol 25 mg 02/17/20 09:00 02/20/20 07:59 Tenormin PO 25 mg DAILY CELE Administration Benzonatate 100 mg 02/15/20 20:56 02/20/20 17:37 Tessalon PO 100 mg Q4H PRN Administration Cough Diltiazem HCl 60 mg 02/18/20 07:00 02/20/20 14:43 Cardizem PO 60 mg Q8H CELE Administration Fluticasone Propionate 0 gm 02/17/20 09:00 02/20/20 07:59 Flonase Nasal [place] NASAL 2 spray DAILY CELE Administration Guaifenesin 200 mg 02/19/20 03:28 02/20/20 17:37 Robitussin Sf PO 200 mg Q4H PRN Administration Cough Guaifenesin/Codeine Phosphate 5 ml 02/19/20 11:40 02/19/20 18:22 Robitussin Ac PO 5 ml HSPRN PRN Administration Cough Azithromycin 500 mg/ Sodium 250 mls @ 250 mls/hr 02/16/20 14:00 02/20/20 14: 44 Chloride IVPB 250 mls 1400 CELE Administration Ceftriaxone Sodium 1 gm/ 100 mls @ 200 mls/hr 02/16/20 02:00 02/20/20 01:17 Sodium Chloride IVPB 100 mls 0200 CELE Administration Amiodarone HCl 450 mg/ 259 mls @ 0 mls/hr 02/17/20 16:45 02/20/20 16:22 Dextrose/Water IVPB 259 mls INF CELE Administration Protocol Per Protocol Loratadine 10 mg 02/17/20 09:00 02/20/20 07:59 Claritin PO 10 mg DAILY CELE Administration Ondansetron HCl 4 mg 02/16/20 18:38 02/20/20 01:18 Zofran IVP 4 mg Q6H PRN Administration Nausea/Vomiting Pantoprazole Sodium 40 mg 02/17/20 09:00 02/20/20 07:58 Protonix PO 40 mg QAM CELE Administration Rivaroxaban 20 mg 02/16/20 17:00 02/20/20 17:37 Xarelto PO 20 mg QPM-WM CELE Administration Sodium Chloride 10 ml 02/17/20 09:00 02/20/20 08:00 Flush - Normal Saline IVF 10 ml Q12HR CELE Administration Tramadol HCl 50 mg 02/15/20 21:06 02/20/20 01:18 Ultram PO 50 mg Q6H PRN Administration Moderate Pain (4-6) - Exam General Appearance: NAD, awake alert Eye: PERRL, anicteric sclera ENT: normocephalic atraumatic, no oropharyngeal lesions Neck: no JVD Heart: RRR, no murmur, no gallops, no rubs Respiratory: no wheezes, no rales, no ronchi Respiratory - other findings: decreased breath sounds right lower lobe Gastrointestinal: soft, non-tender, non-distended, normal bowel sounds Extremities: no cyanosis, no clubbing, no edema, clubbing Hosp A/P - Plan This is 69 year old female with history of atrial fibrillation, GERD , hypertension who presented to the ER with persistent cough, found to be tachycardic in afib and with pneumonia Acute hypoxic respiratory failure secondary to RLL pneumonia - continue ceftriaxone and azithromycin - COVID ruled out - on 2L nasal cannula, wean to 92% Atrial fibrillation with RVR - on amiodarone drip - plan for HI with possible cardioversion on Friday - continue xarelto - continue atenolol and diltiazem Macrocytic anemia - Hb stable, check folate/B12 in am - TSH normal #Hypokalemia #Hypomagnesemia - potassium 3.3, ordered replacement - Mg 1.5, given 800 mg DVT prophylaxiS: xarelto Code status: full code
[2020-02-20] MEDS: guaiFENesin/Codeine Phosphate 200 mg/20 mg 10 ml UD Cup PO PRN (21:32)
[2020-02-21] MEDS: cefTRIAXone\\ROCEPHIN 1 GM in Sodium Chloride 0.9% 100 ML IVPB SCH (01:37)
[2020-02-21 04:39] LABS: Hemoglobin 12.1 g/dL (12.0-16.0); Mean Corpuscular HGB CONC 31.1 g/dL (32.0-36.0); Mean Corpuscular Hemoglobin 31.9 pg (27.0-31.0); Mean Platelet Volume 7.1 fL (7.4-10.4); Platelet Count 352 thou/uL (130-400); RBC Distribution Width 11.6 % (11.5-14.5); White Blood Cell (WBC) Count 11.8 thou/uL (4.8-10.8)
[2020-02-21] MEDS: Acetaminophen 325 MG TAB PO PRN ×4 (04:39→20:27)
[2020-02-21] MEDS: Benzonatate 100 MG CAP PO PRN ×2 (04:39→20:28)
[2020-02-21 05:21] LABS: Anion Gap 14 mmol/L (10-20); BUN (Urea Nitrogen) 9 mg/dL (9.8-20.1); Calc. Creatinine Clearance 83 mL/min (70-130); Calcium 9.4 mg/dL (7.8-10.44); Carbon Dioxide 29 mmol/L (23-31); Chloride 101 mmol/L (98-107); Estimated GFR-MDRD 70; Glucose 104 mg/dL (80-115); Potassium 4.1 mmol/L (3.5-5.1); Sodium 140 mmol/L (136-145)
[2020-02-21] MEDS ORDERED: Hydrocortisone 1% Cream 30 GM TUBE ONE (10:24)
[2020-02-21] MEDS: Atenolol 25 MG TAB PO SCH (11:25)
[2020-02-21] MEDS: Loratadine 10 MG TAB PO SCH (11:26)
[2020-02-21] MEDS: Fluticasone Propionate Nasal Spray 16 gm Bottle NASAL SCH (11:40)
[2020-02-21] MEDS ORDERED: PROPOFOL 200 MG/20 ML VIAL ONE (12:49)
--- NOTE | 2020-02-21 13:34 | OP ---
DATE OF PROCEDURE: 02/21/2020 PREPROCEDURE DIAGNOSIS: Atrial fibrillation. POSTPROCEDURE DIAGNOSIS: Atrial fibrillation. PROCEDURE PERFORMED: Failed cardioversion. INDICATIONS FOR PROCEDURE: The patient was consented for the procedure. I discussed the procedure in full detail with Ms. Almanza. Risks include, but not limited to the following: Stroke, need for repeat cardioversion, as well as failed cardioversion. Also discussed burning of skin from cardioversion. The patient states she has not missed a single dose of Xarelto over the last 2 months. All questions were answered. DESCRIPTION OF PROCEDURE: Conscious sedation was performed with propofol. The patient underwent cardioversion in a synchronized fashion at 150, 200, 250, and 300 joules. All four were unsuccessful. IMPRESSION: Unsuccessful synchronized cardioversion. Job ID: [id number]
[2020-02-21] MEDS: Azithromycin 500 MG in Sodium Chloride 0.9% 250 ML 250 ML IVPB SCH (14:43)
[2020-02-21] MEDS: Ondansetron PF 4 MG/2 ML Vial IVP PRN (14:47)
[2020-02-21] MEDS ORDERED: Rivaroxaban 10 MG TAB PO SCH (16:00)
[2020-02-21] MEDS: Dronedarone HCl 400 MG TAB PO SCH (16:21)
[2020-02-21] MEDS: Rivaroxaban 10 MG TAB PO SCH (16:21)
--- NOTE | 2020-02-21 18:57 | PDOC.HOSPP ---
- Subjective Encounter Date: 02/21/20 Encounter Time: 14:00 Subjective: The patient states she is feeling upset today. Reports she had a cardioversion today but it did not work. She states she was told by cardiology that her home meds would be resumed instead. She still has a dry cough. She doesn't feel any palpitations although she was tachycardic this am. She does still feel weak some. - Objective Vital Signs & Weight: Vital Signs (12 hours) Temp Pulse Resp BP BP BP Pulse Ox 02/21/20 15:25 98 F 72 18 125/80 99 02/21/20 11:25 119 H 138/82 02/21/20 11:20 97.5 F L 119 H 16 138/82 98 02/21/20 10:41 97.7 F 136 H 20 144/85 H 96 02/21/20 08:00 97.4 F L 101 H 18 134/73 96 Weight Weight 180 lb I&O: 02/20/20 02/21/20 02/22/20 06:59 06:59 06:59 Intake Total 2410 1440 900 Output Total 1450 Balance 2410 -10 900 Result Diagrams: 02/21/20 04:31 02/21/20 04:31 Hospitalist ROS - Review of Systems Constitutional: denies: fever, chills - Medication Medications: Active Medications Generic Name Dose Route Start Last Admin Trade Name Freq PRN Reason Stop Dose Admin Acetaminophen 650 mg 02/15/20 19:47 02/21/20 16:21 Tylenol PO 650 mg Q4H PRN Administration Headache/Fever/Mild Pain (1-3) Atenolol 25 mg 02/17/20 09:00 02/21/20 11:25 Tenormin PO 25 mg DAILY CELE Administration Benzonatate 100 mg 02/15/20 20:56 02/21/20 04:39 Tessalon PO 100 mg Q4H PRN Administration Cough Diltiazem HCl 60 mg 02/18/20 07:00 02/21/20 16:21 Cardizem PO 60 mg Q8H CELE Administration Dronedarone 400 mg 02/21/20 17:00 02/21/20 16:21 Multaq PO 400 mg BID-WM CELE Administration Fluticasone Propionate 0 gm 02/17/20 09:00 02/21/20 11:40 Flonase Nasal [place] NASAL 1 spray DAILY CELE Administration Guaifenesin 200 mg 02/19/20 03:28 02/20/20 17:37 Robitussin Sf PO 200 mg Q4H PRN Administration Cough Guaifenesin/Codeine Phosphate 5 ml 02/19/20 11:40 02/20/20 21:32 Robitussin Ac PO 5 ml HSPRN PRN Administration Cough Azithromycin 500 mg/ Sodium 250 mls @ 250 mls/hr 02/16/20 14:00 02/21/20 14: 43 Chloride IVPB 250 mls 1400 CELE Administration Ceftriaxone Sodium 1 gm/ 100 mls @ 200 mls/hr 02/16/20 02:00 02/21/20 01:37 Sodium Chloride IVPB 100 mls 0200 CELE Administration Loratadine 10 mg 02/17/20 09:00 02/21/20 11:26 Claritin PO 10 mg DAILY CELE Administration Ondansetron HCl 4 mg 02/16/20 18:38 02/21/20 14:47 Zofran IVP 4 mg Q6H PRN Administration Nausea/Vomiting Pantoprazole Sodium 40 mg 02/17/20 09:00 02/21/20 11:26 Protonix PO 40 mg QAM CELE Administration Rivaroxaban 20 mg 02/16/20 17:00 02/21/20 16:21 Xarelto PO 20 mg QPM-WM CELE Administration Sodium Chloride 10 ml 02/17/20 09:00 02/21/20 11:41 Flush - Normal Saline IVF Not Given Q12HR CELE Tramadol HCl 50 mg 02/15/20 21:06 02/20/20 01:18 Ultram PO 50 mg Q6H PRN Administration Moderate Pain (4-6) - Exam General Appearance: NAD, awake alert Eye: PERRL, anicteric sclera ENT: normocephalic atraumatic, no oropharyngeal lesions Neck: no JVD Heart: no murmur, no gallops, no rubs Heart - other findings: irregular rate and rhythm, Respiratory: CTAB, no wheezes, no rales, no ronchi Gastrointestinal: soft, non-tender, non-distended, normal bowel sounds Extremities: no cyanosis, no clubbing, no edema Skin: normal turgor, no lesions, no rashes Neurological: cranial nerve grossly intact, normal sensation to touch, no focal deficits, no new deficit Musculoskeletal: normal tone, normal strength, no muscle wasting Psychiatric: normal affect, normal behavior, A&O x 3 Hosp A/P - Plan This is 69 year old female with history of atrial fibrillation, GERD , hypertension who presented to the ER with persistent cough, found to be tachycardic in afib and with pneumonia Acute hypoxic respiratory failure secondary to RLL pneumonia - continue ceftriaxone and azithromycin - COVID ruled out - weaned down to room air Atrial fibrillation with RVR -s/p HI with cardioversion with no improvement - resume multaq and dronedarone today Macrocytic anemia - Hb stable, check folate/B12 in am - TSH normal #Hypokalemia- resolved #Hypomagnesemia Dispo: pending improvement in tachycardia and hypoxia DVT prophylaxiS: xarelto Code status: full code
[2020-02-22] MEDS: cefTRIAXone\\ROCEPHIN 1 GM in Sodium Chloride 0.9% 100 ML IVPB SCH (00:40)
[2020-02-22] MEDS: Benzonatate 100 MG CAP PO PRN ×2 (00:40→16:04)
[2020-02-22] MEDS: traMADol HCl 50 MG TAB PO PRN ×3 (00:40→21:06)
[2020-02-22] MEDS: Acetaminophen 325 MG TAB PO PRN ×3 (03:57→17:18)
[2020-02-22 04:21] LABS: Hemoglobin 9.5 g/dL (12.0-16.0); Mean Corpuscular Hemoglobin 30.6 pg (27.0-31.0); Platelet Count 362 thou/uL (130-400); RBC Distribution Width 11.6 % (11.5-14.5); Red Blood Cell (RBC) Count 3.09 mill/uL (4.20-5.40); White Blood Cell (WBC) Count 9.5 thou/uL (4.8-10.8)
[2020-02-22 04:36] LABS: Anion Gap 13 mmol/L (10-20); BUN (Urea Nitrogen) 12 mg/dL (9.8-20.1); Calc. Creatinine Clearance 78 mL/min (70-130); Calcium 8.8 mg/dL (7.8-10.44); Carbon Dioxide 28 mmol/L (23-31); Chloride 103 mmol/L (98-107); Estimated GFR-MDRD 65; Glucose 97 mg/dL (80-115); Sodium 140 mmol/L (136-145)
[2020-02-22] MEDS: guaiFENesin/Codeine Phosphate 200 mg/20 mg 10 ml UD Cup PO PRN ×2 (06:05→21:06)
[2020-02-22] MEDS: Diabetic Tussin 200 MG/10 ML UDCUP PO PRN (06:12)
[2020-02-22] MEDS: Dronedarone HCl 400 MG TAB PO SCH ×3 (08:42→17:42)
[2020-02-22] MEDS: Fluticasone Propionate Nasal Spray 16 gm Bottle NASAL SCH (08:42)
[2020-02-22] MEDS: Atenolol 25 MG TAB PO SCH (08:42)
[2020-02-22] MEDS: Loratadine 10 MG TAB PO SCH (08:43)
[2020-02-22] MEDS: Azithromycin 500 MG in Sodium Chloride 0.9% 250 ML 250 ML IVPB SCH (13:05)
--- NOTE | 2020-02-22 13:36 | PRG ---
DATE OF SERVICE: 02/22/2020 SUBJECTIVE: [place] yesterday failed cardioversion. She was cardioverted x4 and continued to be in atrial fibrillation. Her heart rate has continued to be elevated in the 90s to 120s to 130s. She is fairly asymptomatic. At this point, I did increase her Cardizem from 60 t.i.d. to 90 t.i.d. Also, continue atenolol. OBJECTIVE: VITAL SIGNS: Heart rate 117, blood pressure 128/67, temperature 97.4. LUNGS: Clear to auscultation. HEART: Irregularly irregular. ABDOMEN: Soft, nontender, and nondistended. EXTREMITIES: No edema. IMPRESSION: 1. Atrial fibrillation. 2. Pneumonia. RECOMMENDATIONS: 1. The patient has failed cardioversion. 2. I recommend increasing Cardizem and continuing beta-natty therapy for rate control. 3. Once she is rate controlled, it will be okay from outpatient standpoint to schedule ablation and followup with EP. 4. Continue anticoagulation therapy. 5. We will load with digoxin for better rate control. Job ID: [id number]
[2020-02-22] MEDS: Digoxin 0.25 MG TAB PO SCH ×2 (13:50→21:06)
[2020-02-22] MEDS: Rivaroxaban 10 MG TAB PO SCH (16:03)
--- NOTE | 2020-02-22 17:42 | PDOC.HOSPP ---
- Subjective Encounter Date: 02/22/20 Encounter Time: 07:00 Subjective: THe patient states she has intermittent palpitations. Her heart rate was 120 this morning. Since then her heart rate has remained 90-101. The patient was started on digoxin this afternoon by cardiology - Objective Vital Signs & Weight: Vital Signs (12 hours) Temp Pulse Resp BP BP BP Pulse Ox 02/22/20 15:30 97.4 F L 88 16 122/79 96 02/22/20 13:50 75 02/22/20 13:18 127/60 02/22/20 11:10 97.5 F L 70 20 97/59 L 96 02/22/20 08:42 117 H 128/67 02/22/20 07:07 97.4 F L 138 H 16 113/78 96 Weight Weight 180 lb I&O: 02/21/20 02/22/20 02/23/20 06:59 06:59 06:59 Intake Total 1440 1150 Output Total 1450 Balance -10 1150 Result Diagrams: 02/22/20 03:44 02/22/20 03:44 Hospitalist ROS - Review of Systems Constitutional: denies: fever, chills - Medication Medications: Active Medications Generic Name Dose Route Start Last Admin Trade Name Freq PRN Reason Stop Dose Admin Acetaminophen 650 mg 02/15/20 19:47 02/22/20 17:18 Tylenol PO 650 mg Q4H PRN Administration Headache/Fever/Mild Pain (1-3) Atenolol 25 mg 02/17/20 09:00 02/22/20 08:42 Tenormin PO 25 mg DAILY CELE Administration Benzonatate 100 mg 02/15/20 20:56 02/22/20 16:04 Tessalon PO 100 mg Q4H PRN Administration Cough Digoxin 0.25 mg 02/22/20 14:00 02/22/20 13:50 Lanoxin PO 02/23/20 08:01 0.25 mg Q6H CELE Administration Diltiazem HCl 90 mg 02/22/20 08:00 02/22/20 16:03 Cardizem PO 90 mg Q8H CELE Administration Dronedarone 400 mg 02/21/20 17:00 02/22/20 13:53 Multaq PO Not Given BID- CELE Fluticasone Propionate 0 gm 02/17/20 09:00 02/22/20 08:42 Flonase Nasal [place] NASAL 1 spray DAILY CELE Administration Guaifenesin 200 mg 02/19/20 03:28 02/22/20 06:12 Robitussin Sf PO 200 mg Q4H PRN Administration Cough Guaifenesin/Codeine Phosphate 5 ml 02/19/20 11:40 02/20/20 21:32 Robitussin Ac PO 5 ml HSPRN PRN Administration Cough Azithromycin 500 mg/ Sodium 250 mls @ 250 mls/hr 02/16/20 14:00 02/22/20 13: 05 Chloride IVPB 250 mls 1400 CELE Administration Ceftriaxone Sodium 1 gm/ 100 mls @ 200 mls/hr 02/16/20 02:00 02/22/20 00:40 Sodium Chloride IVPB 100 mls 0200 CELE Administration Loratadine 10 mg 02/17/20 09:00 02/22/20 08:43 Claritin PO 10 mg DAILY CELE Administration Ondansetron HCl 4 mg 02/16/20 18:38 02/21/20 14:47 Zofran IVP 4 mg Q6H PRN Administration Nausea/Vomiting Pantoprazole Sodium 40 mg 02/17/20 09:00 02/22/20 08:43 Protonix PO 40 mg QAM CELE Administration Rivaroxaban 20 mg 02/16/20 17:00 02/22/20 16:03 Xarelto PO 20 mg QPM-WM CELE Administration Sodium Chloride 10 ml 02/17/20 09:00 02/22/20 08:43 Flush - Normal Saline IVF 10 ml Q12HR CELE Administration Tramadol HCl 50 mg 02/15/20 21:06 02/22/20 06:04 Ultram PO 50 mg Q6H PRN Administration Moderate Pain (4-6) - Exam General Appearance: NAD, awake alert Eye: PERRL, anicteric sclera ENT: normocephalic atraumatic, no oropharyngeal lesions Neck: no JVD Heart: no murmur, no gallops, no rubs, irregular Respiratory: no wheezes, no rales, no ronchi Respiratory - other findings: decreased breath sounds at the right lung base Gastrointestinal: soft, non-tender, non-distended, normal bowel sounds Extremities: no cyanosis, no clubbing, no edema Skin: normal turgor, no lesions, no rashes Neurological: cranial nerve grossly intact, normal sensation to touch, no focal deficits, no new deficit Hosp A/P - Plan This is 69 year old female with history of atrial fibrillation, GERD , hypertension who presented to the ER with persistent cough, found to be tachycardic in afib and with pneumonia Acute hypoxic respiratory failure secondary to RLL pneumonia - continue ceftriaxone and azithromycin day 6. Continue for one more day - COVID ruled out - currently on room air Atrial fibrillation with RVR -s/p HI with cardioversion with no improvement - multaq discontinued today, loaded with digoxin. Cardizem was increased 90 mg po q8 - EP evaluation tomorrow, may need outpatient ablatio n Macrocytic anemia - Hb stable, B12/folate normal - TSH normal #Hypokalemia- resolved #Hypomagnesemia Dispo: pending improvement in tachycardia , possibly tomorrow DVT prophylaxiS: xarelto Code status: full code
[2020-02-22] MEDS: Ondansetron PF 4 MG/2 ML Vial IVP PRN (22:51)
[2020-02-23] MEDS: Digoxin 0.25 MG TAB PO SCH ×2 (02:10→08:30)
[2020-02-23] MEDS: cefTRIAXone\\ROCEPHIN 1 GM in Sodium Chloride 0.9% 100 ML IVPB SCH (02:10)
[2020-02-23] MEDS: Acetaminophen 325 MG TAB PO PRN ×3 (02:10→13:56)
[2020-02-23] MEDS: traMADol HCl 50 MG TAB PO PRN (02:56)
[2020-02-23 04:42] LABS: Hemoglobin 10.6 g/dL (12.0-16.0); Mean Corpuscular Hemoglobin 32.8 pg (27.0-31.0); Mean Platelet Volume 6.8 fL (7.4-10.4); Platelet Count 381 thou/uL (130-400); RBC Distribution Width 11.4 % (11.5-14.5); Red Blood Cell (RBC) Count 3.23 mill/uL (4.20-5.40); White Blood Cell (WBC) Count 7.6 thou/uL (4.8-10.8)
[2020-02-23 05:02] LABS: Anion Gap 12 mmol/L (10-20); BUN (Urea Nitrogen) 14 mg/dL (9.8-20.1); Calc. Creatinine Clearance 81 mL/min (70-130); Calcium 8.9 mg/dL (7.8-10.44); Carbon Dioxide 30 mmol/L (23-31); Chloride 101 mmol/L (98-107); Estimated GFR-MDRD 68; Glucose 101 mg/dL (80-115); Potassium 4.1 mmol/L (3.5-5.1); Sodium 139 mmol/L (136-145)
[2020-02-23] MEDS: Loratadine 10 MG TAB PO SCH (08:29)
[2020-02-23] MEDS: Atenolol 25 MG TAB PO SCH (08:29)
[2020-02-23] MEDS: Fluticasone Propionate Nasal Spray 16 gm Bottle NASAL SCH (08:31)
--- NOTE | 2020-02-23 09:24 | PRG ---
DATE OF SERVICE: 02/23/2020 SUBJECTIVE: Ms. Almanza's heart rate remains elevated. She was loaded on digoxin. I also increased her Cardizem yesterday. She is also on beta-natty therapy. OBJECTIVE: VITAL SIGNS: Blood pressure 142/71, pulse 147, respirations 20. LUNGS: Decreased breath sounds on the left versus right. HEART: Irregularly irregular. ABDOMEN: Soft, nontender, nondistended. EXTREMITIES: No edema. IMPRESSION: 1. Atrial fibrillation with rapid ventricular response. 2. Pneumonia. RECOMMENDATIONS: The patient has been on 3 medications for rate control. She continues to have issues. She has failed cardioversion x4 recently. She was on Multaq in addition to IV amiodarone. We will consult with EP for further recommendations. She will likely need an ablation, but likely will be as an outpatient versus inpatient. Job ID: [id number]
--- NOTE | 2020-02-23 11:33 | CON ---
DATE OF CONSULTATION: REASON FOR CONSULTATION: Atrial fibrillation. PHYSICIAN CONSULTED: Naman Moses MD Note: Do not list April Snow as the consulted provider. HISTORY OF PRESENT ILLNESS: Seen Ms. Almanza in consultation at [facility] in [place] regarding her persistent atrial fibrillation. She had been having coughing episodes since October, which provoked in atrial fibrillation episode. She was placed on Multaq by Dr. Sherman, which quieted her episodes. She unfortunately continued to cough and develop pneumonia ultimately resulting in hospitalization for her pneumonia. She was found to be in atrial fibrillation with RVR with a moderately reduced EF of 40% to 45%. She was placed on IV amiodarone and cardioversion was attempted but unsuccessful. Amiodarone was discontinued and rate control has been pursued prompting EP consultation for further arrhythmia management. PROBLEM LIST: 1. Persistent atrial fibrillation. a. Refractory to flecainide. b. Recurrence in the setting of pneumonia in November 2018 prompting transient amiodarone use, which was then discontinued. c. Recurrence of atrial fibrillation in the setting of acute respiratory illness prompting Multaq initiation. 2. Valvular heart disease, [id number] MR, severe during November 2018 pneumonia with atrial fibrillation. 3. Heart failure with a reduced ejection fraction, 40% to 45%. a. Previously 20% to 25% in November 2018 in the setting of pneumonia and atrial fibrillation, which then recovered to 55%. 4. Recurrent pneumonia. 5. Acute kidney injury. 6. Normal stress test in October 2015. ALLERGIES: PENICILLIN. HOME MEDICATIONS: 1. Atenolol 12.5 mg b.i.d. 2. Xarelto 20 mg q.p.m. 3. Protonix 40 mg q.a.m. 4. Benicar 20 mg daily. 5. Estradiol 0.5 mg q.a.m. 6. Multaq 400 mg p.o. b.i.d. 7. Benzonatate 200 mg p.o. t.i.d. REVIEW OF SYSTEMS: 12-point review of systems was positive for low energy level, some fatigue, and shortness of breath with exertion. Otherwise, unremarkable and as per HPI. FAMILY HISTORY: Negative for sudden cardiac or early onset CAD. SOCIAL HISTORY: . Denies alcohol, tobacco, or illicit drug use. PAST MEDICAL HISTORY: 1. Persistent atrial fibrillation. 2. Mitral valve regurgitation. 3. Heart failure with recovered ejection fraction. 4. Hypertension. 5. GERD. PAST SURGICAL HISTORY: 1. Right hip replacement. 2. Cataract surgery. 3. Bladder surgery. 4. Hysterectomy. OBJECTIVE: VITAL SIGNS: Temperature 97.6 degrees Fahrenheit, pulse 147, respirations 18, oxygen 96% on room air, blood pressure 122/82. Height 5 feet 7 inches, weight 180 pounds. BMI is 27.8. GENERAL: The patient is alert, oriented. Speech is clear. Affect is appropriate. She is in no apparent distress. On exam, resting comfortably in bed. HEENT: She is normocephalic and atraumatic. Sclerae anicteric. EOMs are intact. Oral mucosa is moist and pink with adequate dentition. NECK: Supple without jugular venous distention. There is no lymphadenopathy. Her trachea is midline. HEART: Her heart rate is irregularly irregular, but currently rate controlled despite previously documented tachycardia. PMI is nondisplaced. LUNGS: Clear to auscultation in the left hebert. Right upper lobe is clear. Right middle and lower lobes have crackles present. Respirations are even and unlabored. ABDOMEN: Soft and nontender without palpable masses. EXTREMITIES: Warm and dry to touch. Well perfused without clubbing, cyanosis, or edema. NEUROLOGIC: Grossly intact and gait is stable. DATABASE: Telemetry and EKGs show atrial fibrillation with RVR, recently rate controlled within the past 30 minutes by telemetry after IV digoxin now in the 60 to 70 beat per minute range. LABORATORY DATA: WBC 7.6, hemoglobin 10.6, otherwise unremarkable. Chemistry; potassium 4.1, creatinine 0.83. Liver enzymes within normal ranges. Magnesium 1.6. IMPRESSION: 1. Persistent atrial fibrillation in the setting of pneumonia refractory to Multaq and amiodarone with failed cardioversion. 2. Elevated CHADS-VASc score of 4 on the basis of advanced age, female gender, hypertension, and cardiomyopathy. Currently, on Xarelto long-term with no missed doses. 3. Community-acquired pneumonia. 4. Heart failure with a mildly reduced ejection fraction of 40% to 45%. PLAN AND RECOMMENDATIONS: Ms. Almanza is a pleasant 69-year-old woman who comes in found to have community-acquired pneumonia and recurrent atrial fibrillation with RVR refractory to Multaq. Her ejection fraction was mildly reduced and Multaq was discontinued in favor of amiodarone. Cardioversion was later attempted, but unsuccessful and now rate control is pursued. Current medication regimen of diltiazem 90 mg q.8 hours, atenolol 25 mg daily, and now digoxin 250 mcg has been successful at achieving rate control only recently. In light of her recent pneumonia and respiratory illness, I would recommend continued rate control and anticoagulation allowing her to recover from this recent illness, but ultimately she would require an outpatient ablation to address her atrial arrhythmias. She is in agreement with this. We discussed treatment options of rate control versus ablation and antiarrhythmic therapy and how this can be used in a combination of ways to manage atrial fibrillation. Since her rate control has just recently achieved within the past hour, I would recommend some continued surveillance. If her rates remain well controlled this afternoon, she may be ready to discharge this evening. Otherwise, an additional night of observation may be required. Thank you for allowing me to participate in the care of this patient. We will see her back in 4 weeks as an outpatient to discuss pulmonary venous isolation ablation procedure. She will continue on Xarelto. Job ID: [id number]
[2020-02-23] MEDS: Azithromycin 500 MG in Sodium Chloride 0.9% 250 ML 250 ML IVPB SCH (13:51)
[2020-02-23 15:19] VITALS: TEMP 97.5
[2020-02-23] MEDS: Ondansetron PF 4 MG/2 ML Vial IVP PRN (15:19)
[2020-02-23] MEDS: Rivaroxaban 10 MG TAB PO SCH (16:51)
[2020-02-23 18:15] VITALS: BP 121/83
--- NOTE | 2020-02-24 01:45 | DIS ---
DATE OF ADMISSION: 02/15/2020 DATE OF DISCHARGE: 02/23/2020 DISCHARGE DIAGNOSES: 1. Acute hypoxic respiratory failure secondary to pneumonia. 2. Atrial fibrillation with rapid ventricular response. 3. Anemia. 4. Hypokalemia. 5. Hypomagnesemia. 6. Anemia. 7. Nodular densities in the left lung. 8. Mitral regurgitation. CONSULTATIONS: 1. Dr. Akbar Smith with Cardiology. 2. Dr. Naman Moses with Electrophysiology. PROCEDURE: Cardioversion on 02/20, which failed. BRIEF HISTORY OF PRESENT ILLNESS: This is a 69-year-old female with past medical history of atrial fibrillation and pneumonia, who presented to the emergency room with a persistent cough that she has since October. The patient stated that she was treated for sinus infection and had sinus surgery and ever since then, her cough had persisted. She saw Dr. Jovel, where they did a chest x-ray, which was normal. She was then started on a steroid and her cough continued to get worse and her heart rate was increasing. She also reported some left-sided flank pain. She presented to the emergency room for further workup. When the patient presented to the emergency room, her heart rate was 158. Her EKG showed atrial fibrillation with RVR. Her white blood cell count was 15.6. She was treated with IV cefepime and azithromycin and was started on a Cardizem drip and admitted for further workup. HOSPITAL COURSE: Acute hypoxic respiratory failure secondary to pneumonia: The patient had a chest x-ray on 02/14, which showed right lower lobe infiltrate. COVID testing was negative. She had a CTA of her chest, which showed pneumonia and nodular densities in the left lung. She was treated with IV ceftriaxone and azithromycin. The patient was eventually weaned off oxygen and was tolerating an O2 saturation of 96% on room air. She continues to have a cough, but has completed 7 days of antibiotics. Her white blood cell count is normal. She will be discharged with Mucinex and she can take Tessalon Perles at home for her cough. She could have a repeat chest x-ray in 6 weeks. Atrial fibrillation with RVR: The patient was initially placed on a diltiazem drip. She was eventually started on oral diltiazem and her diltiazem was increased to 90 mg three times daily. She received amiodarone and multaq in the hospital, however this did not control her heart rate adequately. She underwent a cardioversion on 02/20, which failed. She was seen by Electrophysiology on 02/22, who recommended outpatient ablation in 4 weeks. Currently, her heart rate at the time of discharge has been controlled in the 70s to 90s. She will be discharged with diltiazem 90 mg p.o. b.i.d. She was loaded with digoxin as well on the and will be discharged with this as well. She will follow up with Dr. Moses in four weeks for pulmonary ablation. She will resume her Xarelto for anticoagulation. Anemia: The patient had a hemoglobin of 10.6 with an MCV of 102. Her vitamin B12 and folate were normal. Her TSH was also normal. DISCHARGE PHYSICAL EXAMINATION: VITAL SIGNS: Temperature 97.5, heart rate 64, respiratory rate 20, O2 saturation 93% on room air, and blood pressure 137/91. GENERAL: The patient is alert, awake, and oriented x3. CVS: Irregular rate and rhythm with no murmurs, rubs, or gallops. LUNGS: Diminished breath sounds at the right lung base. ABDOMEN: Positive bowel sounds, soft, nontender, nondistended. EXTREMITIES: No edema. PERTINENT LABORATORY DATA: CBC 02/22: White count 7.6, hemoglobin 10.6, hematocrit 33.1, platelet count 381. BMP 02/19: Sodium 138, potassium 3.3, chloride 101, bicarb 31, BUN 9. Vitamin B12: Greater than 2000. Folate: 16. TSH: 2.1332. UA 02/14: Shows 10 ketones. Otherwise, unremarkable. COVID PCR 02/14: Negative. IMAGING: Chest x-ray 02/14: Shows right lower lobe infiltrate. CT thorax 02/16: Nodular densities in the left lung. Findings are consistent with pneumonia. No CT evidence of PE. Venous ultrasound of the right upper extremity: Shows cephalic vein thrombosis of the right antecubital fossa. Echo 02/17: Shows mild to moderate MR. Moderate TR. EF 45% to 50%. DISCHARGE CONDITION: Stable. ACTIVITY: As tolerated. DIET: Heart healthy diet. DISCHARGE MEDICATIONS: New prescriptions: 1. Digoxin 0.125 mg p.o. daily. 2. Diltiazem 90 mg p.o. t.i.d. 3. Claritin 10 mg p.o. daily. 4. Mucinex 600 mg p.o. b.i.d. Medications to resume: 1. Atenolol 25 mg p.o. daily. 2. Xarelto 20 mg p.o. q.p.m. 3. Protonix 40 mg p.o. q.a.m. 4. Olmesartan 20 mg p.o. daily. 5. Benzonatate 200 mg p.o. t.i.d. DISCHARGE INSTRUCTIONS: The patient to follow up with her PCP in a week. She is to get a repeat chest x-ray in 6 weeks. She should follow up with Dr. Moses for an ablation study in 4 weeks. She should also get a repeat CT chest in 6 months for nodular densities in the left lung. Job ID: [id number] MTDD
== END 2020-02-23 18:42 | disposition home or self-care (01) | DRG 871 ==
LOC: ERS 12:20 → 2NO 14:26
PROVIDERS: ADMIT Internal Medicine; ATTEND Internal Medicine
PROC: 5A2204Z Restoration of Cardiac Rhythm, Single (ICD-10-PCS; principal; 2020-02-21)
PROC: 4A023FZ Measurement of Cardiac Rhythm, Percutaneous Approach (ICD-10-PCS; 2020-02-23)
PROC: 4A0234Z Measurement of Cardiac Electrical Activity, Percutaneous Approach (ICD-10-PCS; 2020-02-23)
DX: A41.9 Sepsis, unspecified organism (principal); J18.9 Pneumonia, unspecified organism; J96.01 Acute respiratory failure with hypoxia; I42.0 Dilated cardiomyopathy; I48.19 Other persistent atrial fibrillation; N17.9 Acute kidney failure, unspecified; I50.20 Unspecified systolic (congestive) heart failure; Z20.828 Contact with and (suspected) exposure to other viral communicable diseases; E87.6 Hypokalemia; E83.42 Hypomagnesemia; I34.0 Nonrheumatic mitral (valve) insufficiency; K21.9 Gastro-esophageal reflux disease without esophagitis; D53.9 Nutritional anemia, unspecified; I11.0 Hypertensive heart disease with heart failure; Z96.641 Presence of right artificial hip joint; Z88.0 Allergy status to penicillin; Z88.8 Allergy status to other drugs, medicaments and biological substances; Z79.01 Long term (current) use of anticoagulants; Z79.899 Other long term (current) drug therapy; Z87.891 Personal history of nicotine dependence; Z90.710 Acquired absence of both cervix and uterus
CPT/HCPCS: 36415; 71045; 71275; 80048; 80053; 80076; 81001; 82550; 82607; 82728; 82746; 83605; 83735; 84443; 84484; 85025; 85027; 86140; 87040; 92960; 93005; 93010; 93306; J0282; J0456; J0692; J0696; J1160; J1940; J2270; J2405; J2704; J3475; J3490; J7050; J7070; Q9967; U0002

== ENCOUNTER 2020-03-24 07:31 | Outpatient (CLI) | payer MEDICARE, OTHER ==
[2020-03-24 10:18] LABS: INR-International Normal Ratio 1.9; PTT 40.3 sec (22.9-36.1); Prothrombin Time 21.3 sec (12.0-14.7)
[2020-03-24 10:26] LABS: Hemoglobin 13.2 g/dL (12.0-16.0); Mean Corpuscular Hemoglobin 33.4 pg (27.0-31.0); Mean Corpuscular Volume 98.4 fL (78.0-98.0); Mean Platelet Volume 7.9 fL (7.4-10.4); Platelet Count 239 thou/uL (130-400); RBC Distribution Width 12.2 % (11.5-14.5); Red Blood Cell (RBC) Count 3.95 mill/uL (4.20-5.40); White Blood Cell (WBC) Count 5.3 thou/uL (4.8-10.8)
[2020-03-24 12:56] LABS: Anion Gap 18 mmol/L (10-20); BUN (Urea Nitrogen) 30 mg/dL (9.8-20.1); Calc. Creatinine Clearance 0 mL/min (70-130); Calcium 9.3 mg/dL (7.8-10.44); Carbon Dioxide 21 mmol/L (23-31); Chloride 106 mmol/L (98-107); Estimated GFR-MDRD 47; Glucose 108 mg/dL (80-115); Potassium 4.4 mmol/L (3.5-5.1); Sodium 141 mmol/L (136-145)
--- NOTE | 2020-03-24 16:46 | EKG ---
Test Reason : PREOP Blood Pressure : / mmHG Vent. Rate : 062 BPM Atrial Rate : 312 BPM P-R Int : 000 ms QRS Dur : 078 ms QT Int : 388 ms P-R-T Axes : 000 -41 -15 degrees QTc Int : 393 ms Atrial fibrillation Left axis deviation Septal infarct , age undetermined Abnormal ECG No previous ECGs available Confirmed by DR. Grupo ARANGO ([id number]) on 03/24/2020 4:45:54 PM Referred By: RAYO, Confirmed By:DR. Grupo ARANGO
[2020-03-24 17:03] LABS: SARS-CoV-2 MS2 Positive; SARS-CoV-2 N Gene Negative; SARS-CoV-2 S Gene Negative; SARS-CoV-2 by NAA Not Detected (NotDetected); SARS-CoV-2 orf1ab Negative
== END 2020-03-24 07:32 | disposition home or self-care (01) ==
LOC: LABBT 07:31
PROVIDERS: ATTEND Internal Medicine Cardiovascular Disease
DX: Z01.818 Encounter for other preprocedural examination (principal); I48.91 Unspecified atrial fibrillation; Z20.828 Contact with and (suspected) exposure to other viral communicable diseases
CPT/HCPCS: 80048; 85027; 85610; 85730; 93005; U0003; 87635; 93010

== ENCOUNTER 2020-03-28 09:40 | Observation (INO) | payer MEDICARE, OTHER ==
[2020-03-24 10:31] VITALS: BMI 25.9
[2020-03-28] MEDS ORDERED: Lidocaine 1% PF 5 ML VIAL ONE (10:48)
[2020-03-28] MEDS ORDERED: PROPOFOL 200 MG/20 ML VIAL ONE (10:48)
[2020-03-28] MEDS ORDERED: Rocuronium Bromide 10 MG/ML (10ML VIAL) ONE (10:48)
[2020-03-28] MEDS ORDERED: Dexamethasone 20 MG/5 ML VIAL ONE (10:48)
[2020-03-28] MEDS ORDERED: Ondansetron PF 4 MG/2 ML Vial ONE (10:48)
[2020-03-28] MEDS ORDERED: Heparin 25,000 units/D5W 500 ML ONE (12:54)
[2020-03-28] MEDS ORDERED: Heparin 10,000 UNITS/ 10 ML VIAL ONE ×3 (13:04→13:51)
[2020-03-28] MEDS ORDERED: Fentanyl 100 MCG/2 ML VIAL ONE ×2 (13:20→15:51)
[2020-03-28] MEDS ORDERED: Isoproterenol 0.2 MG/1 ML AMP ONE (14:10)
[2020-03-28] MEDS ORDERED: Protamine Sulfate 50 MG/5 ML VIAL ONE (16:21)
[2020-03-28] MEDS ORDERED: SUGAMMADEX SODIUM 200 MG/2 ML VIAL ONE (16:24)
[2020-03-28] MEDS ORDERED: Meperidine HCl/PF 25 MG/ML VIAL SLOW IVP SCH (16:40)
[2020-03-28] MEDS ORDERED: Meperidine HCl/PF 25 MG/ML VIAL ONE (16:43)
[2020-03-28] MEDS ORDERED: guaiFENesin ER 600 MG TAB PO PRN (19:08)
[2020-03-28] MEDS: Furosemide 40 MG/4 ML VIAL SLOW IVP SCH (22:27)
[2020-03-28] MEDS: Acetaminophen 500 MG TAB PO PRN (22:27)
[2020-03-28] MEDS ORDERED: Rivaroxaban 10 MG TAB PO SCH (22:30)
[2020-03-29 07:39] VITALS: TEMP 97.9
[2020-03-29] MEDS: Acetaminophen 500 MG TAB PO PRN (08:23)
[2020-03-29] MEDS: Furosemide 40 MG/4 ML VIAL SLOW IVP SCH (08:24)
[2020-03-29] MEDS ORDERED: Loratadine 10 MG TAB PO SCH (09:00)
[2020-03-29] MEDS ORDERED: Ferrous Sulfate 325 MG TAB PO SCH (09:00)
[2020-03-29] MEDS ORDERED: Multivitamin W/ Minerals 1 TAB PO SCH (09:00)
[2020-03-29] MEDS ORDERED: Digoxin 0.125 MG TAB PO SCH (09:00)
[2020-03-29] MEDS ORDERED: Atenolol 25 MG TAB PO SCH (09:00)
[2020-03-29] MEDS ORDERED: Losartan 25 MG TAB PO SCH (09:00)
[2020-03-29 10:56] VITALS: BP 139/65
--- NOTE | 2020-03-29 12:57 | OP ---
DATE OF PROCEDURE: 03/28/2020 PROCEDURE PERFORMED: Comprehensive electrophysiology testing with 3D mapping and ablation of atrial fibrillation. CLINICAL INDICATION: Persistent AFib, failing pharmacologic suppression and cardioversion. ASA CLASSIFICATION: III. ANESTHESIA: General endotracheal anesthesia per Anesthesiology. ADDITIONAL CARDIAC MEDICATIONS: Isoproterenol 10 mcg/min infusion. TOTAL HEPARIN GIVEN: 20,000 units. TOTAL PROTAMINE GIVEN: 40 mg. ACUTE COMPLICATIONS: None apparent. TOTAL RF TIME: 50 minutes and 3 seconds. DESCRIPTION OF PROCEDURE: After informed consent was obtained, the patient was taken to the EP lab in a fasting state. Both groins were prepped and draped. Using ultrasound guidance an 11-Martiniquais and 8-Martiniquais sheath were placed in the left groin. Two 8-Martiniquais sheaths were placed in the right groin. All 8-Martiniquais sheaths were then replaced by a long sheath for catheter stability. A circular and ablation catheter were placed in the right groin and advanced up to the right atrium. A 3D map was obtained of the right atrium and coronary sinus. A 10-Martiniquais echo probe was placed in the left groin and advanced up the right atrium and right ventricle for imaging, and Duo-Decapolar 20 pole catheter was placed in the left groin and advanced up to the right atrium and into the coronary sinus for mapping. The patient was anticoagulated and transeptal catheterization was performed on 2 occasions. 3D map was obtained of the left atrium. Esophageal temperature probe was placed in the esophagus co-located with a location sensor for visualization with 3D mapping system. Ablation was delivered isolating all 4 pulmonary veins and posterior wall of the left atrium. Additional ablations were required to isolate the floor, a portion of the roof, and the entire coronary sinus. During these ablation procedures, the AFib persisted even with vein and posterior wall isolation. It persisted after roof and floor ablation, but then organized into an atypical flutter originating from the coronary sinus. This was ablated and completely isolated. The patient then was in sinus rhythm after the remainder of the procedure. At the conclusion, catheter withdrawn to the right atrium and heparin was reversed. Sheaths were pulled. Hemostasis was achieved with suture closure. RESULTS: 1. Baseline intervals: HV interval 51 msec. 2. Atrial function: The patient was in coarse AFib. Ablation was performed isolating all 4 pulmonary veins. AFib persisted and posterior wall isolation was performed. AFib persisted, and left atrial floor, roof and septum were ablated. This organized the arrhythmia into an atypical flutter, which entrained to the distal coronary sinus. Cardioversion was performed and firing was seen from the coronary sinus. The entire coronary sinus was isolated. 3. Ablation details: A total of 50 minutes and 3 seconds of RF were delivered to isolate the pulmonary veins, posterior wall, roof, floor, and coronary sinus. IMPRESSION: Successful pulmonary vein antral isolation. RECOMMENDATION: 23-hour observation. Job ID: [id number]
[2020-03-29] MEDS ORDERED: Rivaroxaban 10 MG TAB PO SCH (17:00)
--- NOTE | 2020-03-29 20:52 | DIS ---
DATE OF ADMISSION: 03/28/2020 DATE OF DISCHARGE: 03/29/2020 DIAGNOSIS: Persistent atrial fibrillation. PROCEDURES PERFORMED: Include three dimensional mapping with left atrial ablation for persistent atrial fibrillation, total ablation time 52 minutes. All 4 pulmonary veins were isolated, which organized into atypical atrial flutter, mapped to the distal coronary sinus. She was cardioverted and then the coronary sinus was isolated. She was noninducible post ablation. HISTORY OF PRESENT ILLNESS: Ms. Almanza is a 69-year-old woman, known to our practice for history of persistent atrial arrhythmias that are recurrent in the setting of recurrent pneumonia. 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 She was recently hospitalized for atrial fibrillation that was unresponsive to cardioversion with amiodarone. She elected for outpatient ablation, which was performed as detailed above. She has done well overnight with no heart racing, palpitations, chest pain, pressure, syncope, near syncope, stroke, stroke-like symptoms, or bleeding at her groin site. She does endorse some occasional chest burning that is worse with deep inspiration and also some burning pain along the inside of her thigh that is provoked by walking. She has a sore throat and otherwise voices no complaints. She feels stable to go home. OBJECTIVE: VITAL SIGNS: Temperature 97.9 degrees Fahrenheit, pulse 77, blood pressure 139/65, respirations 18, and oxygen is 95% on room air. GENERAL: The patient is alert and oriented. Speech is clear. Affect is appropriate. No apparent distress at the time the exam. She is resting comfortably in bed. Bilateral groin sites are stable. LUNGS: Clear to auscultation bilaterally. Hepatojugular reflux is negative. ABDOMEN: Soft and nontender without palpable masses. NEUROLOGIC: Grossly intact and nonfocal. Gait is stable. Telemetry shows sinus rhythm. DISCHARGE INSTRUCTIONS: Continue Xarelto without interruption. Take medications as prescribed. Follow up in 6 weeks and contact [facility] with any postablation concerns. DISCHARGE MEDICATION INSTRUCTIONS: Continue; 1. Xarelto 20 mg q.p.m. 2. Protonix 40 mg q.a.m. 3. Benicar 20 mg daily. 4. Mucinex as directed. 5. Multivitamin daily. 6. Iron daily. 7. Zyrtec daily. 8. Atenolol 25 mg daily. 9. Tylenol as needed. New prescriptions; 1. Carafate 1 g q.i.d. x2 weeks. 2. Lasix 40 mg p.o. daily x5 days, then as needed, to be taken with potassium chloride 20 mEq. 3. Diltiazem CD 240 mg daily. 4. Digoxin 125 mcg p.o. p.r.n. heart rate greater than 120 beats per minute. Discontinued medications; 1. Digoxin 125 mcg p.o. daily (this was changed to p.r.n.). 2. Diltiazem 90 mg t.i.d. (this was changed to once a day extended release formulation). CONDITION AT DISCHARGE: Stable. Job ID: [id number]
== END 2020-03-29 12:54 | disposition home or self-care (01) ==
LOC: CCL 09:40 → 2SW 11:31
PROVIDERS: ADMIT Internal Medicine Cardiovascular Disease; ATTEND Internal Medicine Cardiovascular Disease
PROC: 4A023FZ Measurement of Cardiac Rhythm, Percutaneous Approach (ICD-10-PCS; principal; 2020-03-28)
PROC: 4A0234Z Measurement of Cardiac Electrical Activity, Percutaneous Approach (ICD-10-PCS; 2020-03-28)
PROC: 02583ZZ Destruction of Conduction Mechanism, Percutaneous Approach (ICD-10-PCS; 2020-03-28)
PROC: 02K83ZZ Map Conduction Mechanism, Percutaneous Approach (ICD-10-PCS; 2020-03-28)
DX: I48.19 Other persistent atrial fibrillation (principal); I34.0 Nonrheumatic mitral (valve) insufficiency; I11.0 Hypertensive heart disease with heart failure; I50.9 Heart failure, unspecified; J18.9 Pneumonia, unspecified organism; Z79.01 Long term (current) use of anticoagulants; Z79.899 Other long term (current) drug therapy; Z88.0 Allergy status to penicillin; Z88.8 Allergy status to other drugs, medicaments and biological substances
CPT/HCPCS: 76942; 85347 ×2; 92960; 93005; 93613; 93623; 93655; 93656; 93657; 93662; C1732 ×3; C1759; C1760; C1884; 93010; 96374; 96376; G0378; J1100; J1642; J1644; J1940; J2175; J2405; J2704; J2720; J3010

== ENCOUNTER 2020-09-01 09:05 | Outpatient (CLI) | payer MEDICARE, OTHER | END 2020-09-01 09:06 | disposition home or self-care (01) | LOC: BICCT 09:05 | PROVIDERS: ATTEND Internal Medicine Critical Care Medicine | DX: R91.8 Other nonspecific abnormal finding of lung field (principal); J98.4 Other disorders of lung | CPT/HCPCS: 71250 ==

== ENCOUNTER 2020-09-27 05:37 | Observation (INO) | payer MEDICARE, OTHER ==
[2020-09-26 11:12] VITALS: BMI 26.6
[~2020-09-27 05:37] MED LIST: PROPOFOL 200 MG/20 ML VIAL ONE
[2020-09-27] MEDS ORDERED: Fentanyl 100 MCG/2 ML VIAL ONE (06:58)
[2020-09-27] MEDS ORDERED: Phenylephrine 10 MG/ML VIAL ONE (06:59)
[2020-09-27] MEDS ORDERED: Heparin 10,000 UNITS/ 10 ML VIAL ONE ×2 (07:09→09:21)
[2020-09-27] MEDS ORDERED: Heparin 25,000 units/D5W 500 ML ONE (09:21)
[2020-09-27] MEDS ORDERED: Ondansetron PF 4 MG/2 ML Vial ONE (09:42)
[2020-09-27] MEDS ORDERED: Metoclopramide HCl 10 MG/2 ML VIAL ONE (09:42)
[2020-09-27] MEDS ORDERED: Dexamethasone 20 MG/5 ML VIAL ONE (09:42)
[2020-09-27] MEDS ORDERED: PROPOFOL 200 MG/20 ML VIAL ONE (09:42)
[2020-09-27] MEDS ORDERED: Rocuronium Bromide 10 MG/ML (10ML VIAL) ONE (09:42)
[2020-09-27] MEDS ORDERED: Lidocaine 1% PF 5 ML VIAL ONE (09:42)
[2020-09-27] MEDS ORDERED: Isoproterenol 0.2 MG/1 ML AMP ONE (12:26)
[2020-09-27] MEDS ORDERED: Protamine Sulfate 50 MG/5 ML VIAL ONE (12:57)
[2020-09-27] MEDS ORDERED: Furosemide 40 MG/4 ML VIAL ONE (13:59)
[2020-09-27] MEDS ORDERED: Meperidine HCl/PF 25 MG/ML VIAL ONE (14:19)
[2020-09-27] MEDS ORDERED: Cepastat Lozenges 1 LOZ PO PRN (14:21)
[2020-09-27] MEDS ORDERED: Furosemide 40 MG TAB PO SCH (14:30)
[2020-09-27] MEDS ORDERED: Ketorolac Tromethamine 30 MG/ML VIAL ONE (14:59)
--- NOTE | 2020-09-27 15:02 | OP ---
DATE OF PROCEDURE: 09/27/2020 PROCEDURE PERFORMED: Electrophysiology study and radiofrequency ablation. ADDITIONAL REFERRING PHYSICIAN: Ricardo Hannah MD REASON FOR PROCEDURE: Ms. Almanza is a 69-year-old woman with prior history of persisting atrial fibrillation, mildly reduced LVEF at 40% to 45% on echocardiogram in 05/2020, moderate mitral regurgitation and mild TR, who has failed flecainide in the past and underwent a pulmonary venous isolation procedure on 03/28/2020. She had recurrent atrial arrhythmias subsequently with rapid conduction, requiring Multaq, then eventually amiodarone administration despite she had symptomatic recurrences. She has been anticoagulated with Xarelto without a fail and she is here for a repeat left atrial and right atrial ablation. DESCRIPTION OF PROCEDURE: The patient received general anesthesia by Anesthesia specialist. After adequate level of sedation achieved, the left and right femoral venous area was prepped and draped and anesthetized using subcutaneous lidocaine. Under ultrasound guidance, both femoral veins were cannulated x2. On the left side, an 11-Tongan sheath and a Preface sheath were used to advance the intracardiac echocardiogram probe and a 20-pole Lasso catheter into the right atrium. On the right femoral venous side, initially a ThermoCool SFST catheter was advanced to the right atrium via an 8-Tongan sheath and a 3D map of right atrium was obtained. Following that, under ultrasound guidance, the Duo-Deca catheter was positioned to the right atrial and CS positions. Basic EP study was performed at that point, demonstrating initially atrial flutter with QRS durations 63 milliseconds, QT 401 milliseconds, HV was measured at 56 milliseconds. An atrial flutter appeared to have a cycle length about 310 millisecond. Initially, the atrial flutter had been entrained from the right atrium, but post pacing intervals were long, so it is left atrial flutter. At that point, IV heparin was administered in a [id number] fashion, which were monitored with regular ACT measurements throughout the case to keep ACT over 350. The heparin drip was adjusted. Through the right femoral venous sites, two SL1 sheaths were used to perform a transseptal puncture with the help of a powered [place] needle under ultrasound and fluoroscopic guidance. Through the SL1 sheaths, a ThermoCool SFST catheter and a PentaRay catheter were advanced to the left atrium. 3D map of left atrium was performed, noting moderate enlargement of the left atrium and severe scarring is noted. Signs of the prior pulmonary venous isolation posterior wall and inferior wall ablation were seen. Reconnection of the left common pulmonary vein was seen and ablated. Also, the right inferior and the right superior veins were also required the ablation to achieve isolation. Posterior wall areas were seen to be reconnected and ablation was performed in these areas as well. 3D activation with voltage map of the atrial flutter was obtained. We were able to terminate the atrial flutter from a right superior ablation, outflow ablation line was drawn between the right superior vein and the mitral anulus as well to eliminate mitral annular flutter. Additional flutter morphologies were also observed. Ablation from the left atrial septal wall adjacent to the right inferior pulmonary vein was performed. Also, the back was ablated. Any posterior wall ablation was closely monitored with the esophageal probe and any excessive heating was met with extra irrigation. An additional atrial flutter form was seen to be originating from the right atrium. Entrainment from the cavotricuspid isthmus has yielded short post pacing intervals, suggestive of isthmus dependence. Cavotricuspid isthmus ablation was also performed, limiting and terminating this atrial flutter. Isuprel was administered at this point. Basic EP study was performed, demonstrating residual inducibility with atrial flutter at 300 milliseconds cycle length, which was pace terminated. This appeared to be also left atrial flutter based on entrainment pacing. A total of 131 lesions placed, total duration 27 minutes at 40 saleh. At the end of the case, the HV interval did not change at 56 milliseconds. AV Wenckebach cycle length was measured at 450 milliseconds. Retrograde Wenckebach cycle length was 440 milliseconds. The AV daryl ERP was 600/200 milliseconds. Catheter was removed from the left atrium and IV heparin was stopped and later reversed with protamine. The long sheaths were exchanged for short sheaths and Vascade closure was performed in all 4 femoral venous sites. At the end of the case, the intracardiac echocardiogram probe and the cardiac fluoroscopy did not reveal signs of pericardial effusion. CONCLUSION: 1. Successful re-isolation of the left common and both right pulmonary veins. 2. Re-isolation of posterior wall and inferior wall sites were performed. 3. Multiple atrial flutter circuits are observed including both left and right atrial circuits and ablated as above. 4. Normal AV daryl and His-Purkinje conduction pre and post procedure. 5. No evidence of accessory pathway or dual AV daryl physiology present. PLAN: Continue oral anticoagulation. Stop amiodarone. Monitor for recurrent arrhythmias. Job ID: [id number] [facility]US[facility]
[2020-09-27] MEDS: Sucralfate 1 GM TAB PO SCH ×2 (15:51→21:51)
[2020-09-27] MEDS: Ketorolac Tromethamine 30 MG/ML VIAL IVP PRN (21:51)
[2020-09-27] MEDS: Atenolol 25 MG TAB PO SCH (21:51)
[2020-09-27] MEDS: busPIRone HCl 5 MG TAB PO SCH (21:51)
[2020-09-28] MEDS: Ketorolac Tromethamine 30 MG/ML VIAL IVP PRN (04:03)
[2020-09-28] MEDS: Sucralfate 1 GM TAB PO SCH ×2 (04:04→08:45)
[2020-09-28 07:41] VITALS: BP 116/64; TEMP 96.2
[2020-09-28] MEDS: Atenolol 25 MG TAB PO SCH (08:41)
[2020-09-28] MEDS: busPIRone HCl 5 MG TAB PO SCH (08:42)
[2020-09-28] MEDS ORDERED: Rivaroxaban 10 MG TAB PO SCH (09:00)
[2020-09-28] MEDS ORDERED: Multivit, Therapeutic 1 TAB PO SCH (09:00)
[2020-09-28] MEDS ORDERED: Losartan 25 MG TAB PO SCH (09:00)
[2020-09-28] MEDS ORDERED: Loratadine 10 MG TAB PO SCH (09:00)
[2020-09-28] MEDS ORDERED: Furosemide 40 MG TAB PO SCH (09:00)
--- NOTE | 2020-09-28 09:24 | PDOC.DS.DS ---
Provider Date of Admission: 09/27/20 11:46 Date of Discharge: 09/28/20 Admitting Provider: Naman Moses MD Primary Care Physician: Ricardo Hannah MD Course Hospital Course: Ms. Almanza is a very pleasant 69-yea/r-old with a prior history of persistent atrial fibrillation, which was refractory to flecainide and amiodarone s/p PVAI 03/28/2020 with redo on 09/27/2019. She also has reduced left ventricular ejection fraction, most recently about 45-50%, with a negative nuclear stress test. She has done well post ablation with out complication and maintaining SR. She feels ready to DC home this AM. Procedures: EPS with ablation: reisolation of all pulmonary veins and posterior wall. Multiple atrial flutters were mapped and ablated. RFA time 27min Vitals: Vital Signs (12 hours) Temp Pulse Resp BP BP Pulse Ox 09/28/20 07:39 96.2 F L 63 18 116/64 95 09/28/20 04:03 98.0 F 64 12 105/60 99 Weight Weight 170 lb Physical Exam: The patient was seen and examined on the day of discharge. General Appearance: NAD, awake alert Eye: PERRL, anicteric sclera ENT: normocephalic atraumatic, no oropharyngeal lesions, moist mucosa Neck: supple, symmetric, no JVD Respiratory: CTAB, no wheezes Cardiovascular: RRR, no murmur, no gallops, no rubs, normal peripheral pulses Gastrointestinal: soft, non-tender, non-distended Extremities: no cyanosis, no clubbing, no edema Extremities - other findings: BL groin sites stable without hematoma or tenderness. Skin: normal turgor, no lesions, no rashes Neurological: cranial nerve grossly intact, normal sensation to touch, no focal deficits Musculoskeletal: normal tone, normal strength, no muscle wasting PSYCH: normal affect, normal behavior, A&O x 3 Problem Assessment: 1. Persistent atrial fibrillation 2. Hx of mild cardiomyopathy (not an issue this hospitalization) 3. Moderate Mitral regurg 4. OAC on xarelto Plan of Treatment: DC home today Remain off amiodarone Continue xarelto 6 week follow up already scheduled Time Spent in discharge related activities (mins): 20 Plan Prescriptions: Sucralfate [Carafate] 1 gm PO Q6H #56 tab Home Medications: Medication Instructions Recorded Confirmed Type Olmesartan Medoxomil [Benicar] 20 mg PO DAILY 08/14/18 09/27/20 History Rivaroxaban [Xarelto] 20 mg PO DAILY 08/14/18 09/27/20 History Cetirizine HCl [Zyrtec] 10 mg PO DAILY 03/24/20 09/27/20 History Iron 28 mg PO DAILY 03/24/20 09/27/20 History Multivitamin [Multivitamins] 1 cap PO DAILY 03/24/20 09/27/20 History Pantoprazole [Protonix] 40 mg PO DAILY #30 tab 03/29/20 09/27/20 Rx Atenolol [Tenormin] 25 mg PO BID 09/26/20 09/27/20 History Furosemide [Lasix] 20 mg PO Q2DAYS 09/26/20 09/27/20 History busPIRone HCl [Buspirone HCl] 7.5 mg PO BID 09/26/20 09/27/20 History Pantoprazole [Protonix] 40 mg PO DAILY #0 tab 09/28/20 Rx Sucralfate [Carafate] 1 gm PO Q6H #56 tab 09/28/20 Rx Allergies: hydroxychloroquine [From Plaquenil] Allergy (Verified 03/24/20 10:31) Penicillins Allergy (Verified 03/24/20 10:31) PER PT Activity:: Activity Restrictions (See [facility] post ablation DC packet) Nourishment:: Heart Healthy Diet Referrals: Ricardo Hannah MD [Primary Care Provider] - Naman Moses MD [[employer]ner] - (6 wks scheduled) Disposition: HOME Quality CORE MEASURES:: N/A
--- NOTE | 2020-09-28 21:02 | EKG ---
Test Reason : POST ABLATION Blood Pressure : / mmHG Vent. Rate : 086 BPM Atrial Rate : 086 BPM P-R Int : 264 ms QRS Dur : 092 ms QT Int : 534 ms P-R-T Axes : 079 -61 073 degrees QTc Int : 639 ms Sinus rhythm with 1st degree A-V block Left axis deviation Nonspecific T wave abnormality Prolonged QT Abnormal ECG When compared with ECG of 15-SEP-2020 10:21, Sinus rhythm has replaced Atrial flutter Criteria for Septal infarct are no longer Present Nonspecific T wave abnormality now evident in Lateral leads QT has lengthened Confirmed by Whitney NOGUERA ([id number]) on 09/28/2020 9:01:43 PM Referred By: [facility] Confirmed By:Whitney NOGUERA
--- NOTE | 2020-09-28 21:03 | EKG ---
Test Reason : Blood Pressure : / mmHG Vent. Rate : 062 BPM Atrial Rate : 062 BPM P-R Int : 256 ms QRS Dur : 086 ms QT Int : 472 ms P-R-T Axes : 064 -48 024 degrees QTc Int : 479 ms Sinus rhythm with 1st degree A-V block Left axis deviation Abnormal ECG When compared with ECG of 27-SEP-2020 15:01, (Unconfirmed) Nonspecific T wave abnormality no longer evident in Lateral leads QT has shortened Confirmed by Whitney NOGUERA ([id number]) on 09/28/2020 9:03:20 PM Referred By: [facility] Confirmed By:Whitney NOGUERA
== END 2020-09-28 10:20 | disposition home or self-care (01) ==
LOC: CCL 05:37 → 3SE 11:46
PROVIDERS: ADMIT Internal Medicine Cardiovascular Disease; ATTEND Internal Medicine Cardiovascular Disease
PROC: 02583ZZ Destruction of Conduction Mechanism, Percutaneous Approach (ICD-10-PCS; principal; 2020-09-27)
PROC: 02K83ZZ Map Conduction Mechanism, Percutaneous Approach (ICD-10-PCS; 2020-09-27)
PROC: 4A023FZ Measurement of Cardiac Rhythm, Percutaneous Approach (ICD-10-PCS; 2020-09-27)
PROC: 4A0234Z Measurement of Cardiac Electrical Activity, Percutaneous Approach (ICD-10-PCS; 2020-09-27)
DX: I48.0 Paroxysmal atrial fibrillation (principal); I42.8 Other cardiomyopathies; I08.1 Rheumatic disorders of both mitral and tricuspid valves; I48.4 Atypical atrial flutter; I11.0 Hypertensive heart disease with heart failure; I50.9 Heart failure, unspecified; K21.9 Gastro-esophageal reflux disease without esophagitis; M19.90 Unspecified osteoarthritis, unspecified site; Z23 Encounter for immunization; Z87.891 Personal history of nicotine dependence; Z79.01 Long term (current) use of anticoagulants; Z79.899 Other long term (current) drug therapy; Z88.0 Allergy status to penicillin; Z88.8 Allergy status to other drugs, medicaments and biological substances
CPT/HCPCS: 76942; 85347 ×2; 90732; 93005 ×2; 93613; 93623; 93655; 93656; 93657; 93662; C1732 ×2; C1759; C1884; G0009; 90471; 93010; 96374; 96376; C1752; G0378; J1100; J1644; J1885; J1940; J2175; J2370; J2405; J2704; J2720; J2765; J3010

== ENCOUNTER 2020-11-08 15:30 | Outpatient (CLI) | payer MEDICARE, OTHER | END 2020-11-08 15:31 | disposition home or self-care (01) | LOC: BICULT 15:30 | PROVIDERS: ATTEND Internal Medicine Nephrology | DX: N18.30 Chronic kidney disease, stage 3 unspecified (principal) | CPT/HCPCS: 76770 ==